=== PATIENT | female | born 1955 | race Caucasian/White ===

== ENCOUNTER → 2017-12-17 10:40 | Outpatient (CLI) | payer BC, SELFPAY ==
[2017-12-17 13:08] LABS: Anion Gap 8 (5-15); BUN 16 mg/dL (7-18); BUN/Creat Ratio 19.4 RATIO (10-20); Chloride 105 mmol/L (98-107); Creatinine, Serum 0.82 mg/dL (0.55-1.02); EST Glomerular Filtration Rate 75 mL/min (>60); Est Glom Filt Rate - Afr Amer 91 mL/min (>60); Glucose 88 mg/dL (74-106); Potassium 3.9 mmol/L (3.5-5.1); Sodium Level 139 mmol/L (136-145); Thyroid Stim Hormone (TSH) 1.88 uIU/mL (0.358-3.74)
[2017-12-17 13:22] LABS: PTHIN 49.4 pg/mL (18.4-80.1)
[2017-12-21 16:18] LABS: Vitamin D 1,25-Dihydroxy 85.8 pg/mL (19.9-79.3)
== END ==
PROVIDERS: Family Provider Family Medicine; PCP Family Medicine; Visit Provider Family Medicine
DX: I10 Essential (primary) hypertension (principal); E21.5 Disorder of parathyroid gland, unspecified; E55.9 Vitamin D deficiency, unspecified
CPT/HCPCS: 36415; 80048; 82652; 83970; 84443

== ENCOUNTER 2018-03-12 15:15 | Emergency (ER) | payer BC, SELFPAY ==
[2018-03-12 15:16] VITALS: BP 223/93; PULSE 73; PULSE 76; RESP 18; RESP 22; TEMP 36.7; O2SAT 99; BMI 35.5
--- NOTE | 2018-03-12 15:27 | CT_ITS ---
STUDY: CT ABDOMEN AND PELVIS WITHOUT CONTRAST REASON FOR EXAM: Female, 62 years old. Severe right flank pain. RADIATION DOSAGE (If Supplied By Facility): CTDIvol = ( 15.56 ) mGy, DLP = ( 754.06 ) mGycm TECHNIQUE: Transaxial images were obtained from the dome of the diaphragm to the symphysis pubis without oral contrast, and without intravenous contrast. Sagittal and coronal images were reconstructed. Individualized dose optimization techniques were used for this CT. COMPARISON: None. FINDINGS: The visualized lung bases are unremarkable. The visualized portions of the heart are within normal limits. There is decreased attenuation of the liver consistent with steatosis. Normal gallbladder and extrahepatic biliary system. Normal spleen. Normal pancreas. Normal bilateral adrenal glands. The right kidney suggests mild edema. There is mild hydronephrosis and moderate hydroureter down to a 4 mm right UVJ stone seen on axial image 150. Additional nonobstructing 8 mm stones seen in the right lower pole. Left kidney has a 3.9 cm probable cyst of the anterior upper pole, confirmation with ultrasound is recommended. No left renal stones. Normal visualized stomach. Normal small intestine. Normal colon. There is non-visualization of the appendix. Normal abdominal aorta. Normal inferior vena cava. Normal retroperitoneum. Normal urinary bladder. There is atrophy of the uterus. Normal abdominal wall. There are diffuse degenerative changes of the visualized lumbar spine. CT/Abdomen/Pelvis without Cont IMPRESSION: 4 mm right UVJ stone causing obstructive changes of the right kidney, collecting system and ureter. Additional 8 mm nonobstructing stone of the right lower pole. Probable 3.9 cm left renal cyst but ultrasound confirmation is recommended. Electronically Signed: Joe Sweet MD at 16:59 EDT , Service support ,
--- NOTE | 2018-03-12 15:29 | ED.VISSUMM ---
- ER Visit Summary Date of Service: 03/12/18 Chief Complaint: Right flank pain History of Present Illness: The patient is a 62 F history of prior kidney stone many years ago. Also hypertension and parathyroid surgery in the past. Patient states today between 1:30 PM and 2 PM she had sudden onset of right flank pain associated nausea vomiting. States the pains moderate to severe. No gross hematuria. No fever. Similar to her prior kidney stone. Prior to this she felt fine. Physical Examination: Middle-aged female playing of pain. Lying in position. Vital signs are stable and her blood pressure 223/93. Afebrile. H EENT exam unremarkable. Moist murmurs. Lungs clear to auscultation bilaterally. Heart regular rate and rhythm no murmur. Abdomen is soft and nontender. Normal bowel sounds no peritoneal signs. Nondistended. No pulsatile mass. Normal bowel sounds. Moving all 4 extremities. Neurovascularly intact. Calves without edema or cords. Back exam is nontender. Neurologically she is awake and alert. With no focal motor deficits. Test Results: BMP shows a BUN 22 creatinine 1.33 slightly elevated from prior creatinines. Urinalysis 1025 red blood cells otherwise no signs of infection. Urinalysis consistent with a kidney stone. CT flank shows a 4 mm right UVJ stone with hydronephrosis and hydroureter. There is also a right 8 mm renal stone. And most likely a left renal cyst. All these tests results were discussed with the patient and family. Emergency Department Course and Treatment: Patient received IV fluids along with IV Zofran and Dilaudid for pain. Treatment Plan: Repeat exam patient is doing much better this 1919. She was given a second dose of Dilaudid. Currently she is comfortable. They are fine with her being discharged home. She will be giving a home pack of Zofran and [place]. The pharmacy will be closed before they get there. She also be written a prescription for [place] and Zofran. And Flomax. Strain your urine for the stone. Follow-up for Mg as needed. Disposition: Discharge Impression: Acute right flank pain secondary to 4 mm right UVJ ureteral calculi. This note was generated with [employer] dictation software. It may contain incorrect words, spelling, and punctuation that were not noted in review of the chart prior to signing ED Disposition - Plan for ED Patient: Chief Complaint: Flank Pain Referrals: Nasim Wolff MD [Primary Care Provider] -
--- NOTE | 2018-03-12 15:32 | ED.DCSUM_ITS ---
- ER Visit Summary Date of Service: 03/12/18 Chief Complaint: Right flank pain History of Present Illness: The patient is a 62 F history of prior kidney stone many years ago. Also hypertension and parathyroid surgery in the past. Patient states today between 1:30 PM and 2 PM she had sudden onset of right flank pain associated nausea vomiting. States the pains moderate to severe. No gross hematuria. No fever. Similar to her prior kidney stone. Prior to this she felt fine. Physical Examination: Middle-aged female playing of pain. Lying in position. Vital signs are stable and her blood pressure 223/93. Afebrile. H EENT exam unremarkable. Moist murmurs. Lungs clear to auscultation bilaterally. Heart regular rate and rhythm no murmur. Abdomen is soft and nontender. Normal bowel sounds no peritoneal signs. Nondistended. No pulsatile mass. Normal bowel sounds. Moving all 4 extremities. Neurovascularly intact. Calves without edema or cords. Back exam is nontender. Neurologically she is awake and alert. With no focal motor deficits. Test Results: BMP shows a BUN 22 creatinine 1.33 slightly elevated from prior creatinines. Urinalysis 1025 red blood cells otherwise no signs of infection. Urinalysis consistent with a kidney stone. CT flank shows a 4 mm right UVJ stone with hydronephrosis and hydroureter. There is also a right 8 mm renal stone. And most likely a left renal cyst. All these tests results were discussed with the patient and family. Emergency Department Course and Treatment: Patient received IV fluids along with IV Zofran and Dilaudid for pain. Treatment Plan: Repeat exam patient is doing much better this 1919. She was given a second dose of Dilaudid. Currently she is comfortable. They are fine with her being discharged home. She will be giving a home pack of Zofran and [place]. The pharmacy will be closed before they get there. She also be written a prescription for [place] and Zofran. And Flomax. Strain your urine for the stone. Follow-up for Mg as needed. Disposition: Discharge Impression: Acute right flank pain secondary to 4 mm right UVJ ureteral calculi. This note was generated with [employer] dictation software. It may contain incorrect words, spelling, and punctuation that were not noted in review of the chart prior to signing ED Disposition - Plan for ED Patient: Chief Complaint: Flank Pain Referrals: Nasim Wolff MD [Primary Care Provider] -
[2018-03-12] MEDS: Ondansetron 4 MG/2 ML Vial IV (16:08)
[2018-03-12] MEDS: Ketorolac 30 MG/ML Syringe IV (16:08)
[2018-03-12] MEDS: HYDROmorphone 1 MG/ML Syringe IV ×2 (16:08→17:33)
[2018-03-12] MEDS: 0.9% Normal Saline 1,000 ML 1000 ML IV (16:11)
[2018-03-12 16:41] LABS: Anion Gap 10 (5-15); BUN 22 mg/dL (7-18); BUN/Creat Ratio 16.5 RATIO (10-20); Calcium,Total 9.2 mg/dL (8.5-10.1); Chloride 109 mmol/L (98-107); Creatinine, Serum 1.33 mg/dL (0.55-1.02); EST Glomerular Filtration Rate 43 mL/min (>60); Est Glom Filt Rate - Afr Amer 52 mL/min (>60); Estimated Creatinine Clearance 33.94 ml/min; Glucose 111 mg/dL (74-106); Potassium 3.8 mmol/L (3.5-5.1); Sodium Level 142 mmol/L (136-145)
[2018-03-12 17:28] LABS: Mucous, Urine 0 SEEN /hpf (<or=2+)
[2018-03-12 17:36] VITALS: BP 136/65; PULSE 70; RESP 14; O2SAT 100
[2018-03-12 17:37] LABS: Color, Urine Yellow (Yellow); Glucose, Dipstick Normal (Normal); Ketone-Dipstick 15 mg/dl (Negative); Leukocyte Esterase-Dipstick 25 /ul (Negative); Nitrite-Dipstick Negative (Negative); Occult Blood-Urine 150 /ul (Negative); Protein-Dipstick 15 mg/dl (Negative); Urine Bilirubin Dipstick Negative (Negative); Urine Clarity Cloudy (Clear); Urine Urobilinogen Normal (Normal)
[2018-03-12 18:00] LABS: Squamous Epithelial Cells - UA 0-5 SEEN /hpf (5-10)
[2018-03-12 18:02] LABS: Bacteria RARE /hpf (None Seen); Red Blood Cells-Urine 10-25 SEEN /hpf (0-5); White Blood Cells 0-5 SEEN /hpf (0-5)
--- NOTE | 2018-03-12 19:25 | ED.DEP ---
ED Disposition - Plan for ED Patient: Disposition: Home or Assisted Living Chief Complaint: Flank Pain Instructions: ED Stone Renal W Colic Prescriptions: Hydrocodone/Acetaminophen [[place] 7.5-325 Tablet] 1 ea PO Q4H PRN PRN #14 tab PRN Reason: Pain Ondansetron [Zofran Odt] 4 mg PO Q8H PRN PRN #10 tab PRN Reason: Nausea Tamsulosin HCl [Flomax] 0.4 mg PO DAILY #3 cap Referrals: Nasim Wolff MD [Primary Care Provider] - As Needed Omar cMdermott MD [STAFF PHYSICIAN] - As Needed Additional Instructions: Plenty of fluids and rest. [place] for pain up to 2 every 4 hours as needed pain Flomax to help pass the stone. Zofran as needed for nausea. Return if intractable pain, intractable vomiting or fever.
--- NOTE | 2018-03-12 19:29 | DCINST.ED_ITS ---
ED Disposition - Plan for ED Patient: Disposition: Home or Assisted Living Chief Complaint: Flank Pain Instructions: ED Stone Renal W Colic Prescriptions: Hydrocodone/Acetaminophen [[place] 7.5-325 Tablet] 1 ea PO Q4H PRN PRN #14 tab PRN Reason: Pain Ondansetron [Zofran Odt] 4 mg PO Q8H PRN PRN #10 tab PRN Reason: Nausea Tamsulosin HCl [Flomax] 0.4 mg PO DAILY #3 cap Referrals: Nasim Wolff MD [Primary Care Provider] - As Needed Omar Mcdermott MD [STAFF PHYSICIAN] - As Needed Additional Instructions: Plenty of fluids and rest. [place] for pain up to 2 every 4 hours as needed pain Flomax to help pass the stone. Zofran as needed for nausea. Return if intractable pain, intractable vomiting or fever.
[2018-03-12] MEDS: HYDROcodone Bitartrate/Apap 5/325 Tablet PO (19:49)
[2018-03-12] MEDS: Ondansetron ODT 4 MG Tablet PO (19:50)
[2018-03-12 19:51] VITALS: BP 146/63; PULSE 99; RESP 16; O2SAT 97; O2SAT 98
== END 2018-03-12 19:55 | disposition home or self-care (01) ==
PROVIDERS: Emergency Provider Emergency Medicine; Family Provider Family Medicine; PCP Family Medicine
DX: N13.2 Hydronephrosis with renal and ureteral calculous obstruction (principal); I10 Essential (primary) hypertension; Z79.899 Other long term (current) drug therapy; Z87.442 Personal history of urinary calculi
CPT/HCPCS: 74176; 80048; 81001; 96361; 96374; 96375; 96376; 99285; J7030; A4216; J2405

== ENCOUNTER → 2018-05-10 18:48 | Outpatient (CLI) | payer BC, SELFPAY ==
[2018-05-16 12:56] LABS: HPV Reflexed? NOT INDICATED
== END ==
PROVIDERS: Family Provider Family Medicine; PCP Family Medicine; Visit Provider Nurse Practitioner Adult Health
DX: Z01.419 Encounter for gynecological examination (general) (routine) without abnormal findings (principal)
CPT/HCPCS: 88175; G0145

== ENCOUNTER → 2018-06-17 10:19 | Outpatient (CLI) | payer BC, SELFPAY ==
[2018-06-17 12:42] LABS: Vitamin D,25 Hydroxy 49.6 ng/mL (29.95-100.01)
[2018-06-17 12:50] LABS: PTHIN 84.7 pg/mL (18.4-80.1)
[2018-06-17 13:00] LABS: Anion Gap 10 (5-15); BUN 18 mg/dL (7-18); BUN/Creat Ratio 21.9 RATIO (10-20); Calcium,Total 8.8 mg/dL (8.5-10.1); Chloride 106 mmol/L (98-107); Creatinine, Serum 0.82 mg/dL (0.55-1.02); EST Glomerular Filtration Rate 75 mL/min (>60); Est Glom Filt Rate - Afr Amer 91 mL/min (>60); Glucose 95 mg/dL (74-106); Magnesium 2.2 mg/dL (1.6-2.6); Potassium 3.8 mmol/L (3.5-5.1); Sodium Level 140 mmol/L (136-145); T4 Free Direct 0.98 ng/dL (0.76-1.46); Thyroid Stim Hormone (TSH) 1.82 uIU/mL (0.358-3.74)
[2018-06-17 13:14] LABS: Microalbumin,Random Urine 7.8 mg/L (NO RANGE EST.); Microalbumin:Creatinine Ratio 29.1 mg/g CRE (<30 mg/g CRE)
== END ==
PROVIDERS: Family Provider Family Medicine; PCP Family Medicine; Visit Provider Family Medicine
DX: I10 Essential (primary) hypertension (principal); E21.5 Disorder of parathyroid gland, unspecified
CPT/HCPCS: 36415; 80048; 82043; 82306; 82570; 83735; 83970; 84439; 84443

== ENCOUNTER → 2018-07-25 16:15 | Outpatient (CLI) | payer BC, SELFPAY ==
--- NOTE | 2018-07-25 16:24 | US_ITS ---
STUDY: RENAL ULTRASOUND - COMPLETE REASON FOR EXAM: Female, 62 years old. Right flank pain TECHNIQUE: Ultrasound evaluation of the kidneys was performed with real-time and static alvarez-scale imaging. COMPARISON: None. FINDINGS: RIGHT KIDNEY: Normal location of the right kidney, which is normal in size. The right kidney measures 11.9 x 6.0 x 5 point cm. There is a normal cortex of the right kidney. The renal cortex measures 1.4 cm. There is no right renal mass or cyst. There is a nonobstructing 6 mm stone There is mild hydronephrosis of the right kidney, of uncertain etiology. DISTAL RIGHT URETER: There is non-visualization of the distal right ureter. There is no demonstrated right ureterovesical junction calculus. There is a visualized right ureteral jet. LEFT KIDNEY: Normal location of the left kidney, which is normal in size. The left kidney measures 10.5 x 6.0 x 5.6 cm. There is a normal cortex of the left kidney. The renal cortex measures 1.3 cm. There is a simple 4 cm cyst. There are no left renal calculi. There is no left hydronephrosis. DISTAL LEFT URETER: There is non-visualization of the distal left ureter. There is no demonstrated left ureterovesical junction calculus. There is a visualized left ureteral jet. AORTA: There is no elongation or tortuosity of the abdominal aorta. I.V.C.: The IVC is patent. BLADDER: The bladder is sonographically normal US/Kidney and Bladder IMPRESSION: Nonobstructing right nephrolithiasis Mild right hydronephrosis of uncertain etiology Simple left renal cyst Electronically Signed: Seamus Russell MD at 17:33 EST , Service support ,
== END ==
PROVIDERS: Family Provider Family Medicine; PCP Family Medicine; Referring Provider Family Medicine; Visit Provider Family Medicine
DX: R11.2 Nausea with vomiting, unspecified (principal)
CPT/HCPCS: 76770

== ENCOUNTER 2018-07-29 07:08 | Day surgery (SDC) | payer BC, SELFPAY ==
[2018-07-29] VITALS (8 sets, daily range): BP systolic 125–182; BP diastolic 68–96; PULSE 61–82; RESP 16–18; TEMP 36.3–37.2; O2SAT 92–100; BMI 33.9
--- NOTE | 2018-07-29 | CALC_PTH ---
PATIENT: ROSITA GRANT LOC: [facility] [place] U#:[id number] AGE/SX: 62/F ROOM: RE07/29/[address]: Dr. Julia Keane MD : 1955 BED: DIS: 07/29/2018 SPEC #: [id number] RECD: 07/29/18 14:40 STATUS: PAUL VEE #: [id number] IGOR: 07/29/18 00:[address]: Julia Keane DEPT: SURGICAL PATHOLOGY RECD BY: Aly Spivey ENTERED: 07/29/18 14:40 SP TYPE: Calculi OTHR DR: Dr. Nasim Wolff MD Tissues: CALCULI Procedures: Surgery Specimen Level I HEADER OPERATION: Cysto, ureteroscopy, retro, laser, stent PRE-OP DIAGNOSIS: Calculus of right ureter TISSUE SUBMITTED: Calculi GROSS DIAGNOSIS Fragments of stone, clinically right ureteral calculus, submitted entirely for stone analysis. SJ:ivanna 08/01/18 COMMENT The calculus is submitted in its entirety for chemical stone analysis. The results from this study will be reported separately. GROSS DESCRIPTION Received is one container labeled with the patient's name and designated right ureteral stone. The specimen consists of multiple fragments of stone (five) measuring 0.1 to 0.2 cm in greatest dimension. The entire specimen is submitted for stone analysis. / BRIAN:ivanna 07/29/18 CPT: 08334
--- NOTE | 2018-07-29 07:17 | CT_ITS ---
Right flank pain, hydronephrosis, low back pain. TECHNIQUE: Helically acquired images were obtained of the abdomen and pelvis without oral or IV contrast as per renal stone protocol. A radiation dose optimization technique was used for this scan. IV Contrast dosage and agent: None. Oral contrast: None. COMPARISON: Renal ultrasound 07/25/[address] abdomen and pelvis 03/12/2018 FINDINGS: Both kidneys are normal in position. By previous CT scan, an 8 mm calyceal stone was present at the lower pole of the right kidney. By current exam, this stone now lies at the right UVJ and there is moderate hydronephrosis and hydroureter proximal to the stone. The right kidney shows no postobstructive atrophy. No stones or hydronephrosis on the left. Left renal 4 cm water density cortical cyst, unchanged. Adrenal glands are not enlarged. Lower chest: Clear. No pleural effusion Fatty infiltration of the liver. The spleen, pancreas, gallbladder, and biliary system showed no CT abnormality. Atherosclerotic abdominal aorta which is normal in caliber. No ascites or retroperitoneal lymphadenopathy. GI tract: No obstruction. Pelvis: Anteverted uterus which is normal in size. The pelvis shows no free fluid or lymphadenopathy. Urinary bladder is not well distended and is otherwise negative. No intraluminal stones. CT/Abdomen/Pelvis without Cont IMPRESSION: 1. The previously seen 8 mm right renal stone shows distal migration to the right UVJ with secondary obstruction. Moderate hydronephrosis and hydroureter on the right proximal to the stone 2. No hydronephrosis on the left. 3. Additional chronic changes, as above. Individualized dose optimization techniques were used for this CT. at 0812 Reported and signed by: Twan Mejia MD Electronically Signed: Twan Mejia, at 8:10 EST Tel , Service support ,
--- NOTE | 2018-07-29 12:14 | PCM.DC.URO ---
Discharge Diet: No Restrictions Discharge Activity: May not drive while taking narcotic pain medications., May Shower May resume sexual activity in: 1 week Call your doctor if you observe: Fever of 101 or Higher, Inability to urinate, Inability to have a bowel movement, Shortness of breath, Chest pain, Calf discomfort, Uncontrolled pain Allergies/Adverse Reactions: Allergies Sulfa (Sulfonamide Antibiotics) Allergy (Verified 03/12/18 15:19) Rash Medications to take at Discharge Hydrocodone/Acetaminophen [[place] 7.5-325 Tablet] 1 ea PO Q4H PRN PRN #14 tab 03/12/18 Lisinopril [Zestril] 40 mg PO DAILY 03/12/18 Ondansetron [Zofran Odt] 4 mg PO Q8H PRN PRN #10 tab 03/12/18 Tamsulosin HCl [Flomax] 0.4 mg PO DAILY #3 cap 03/12/18 Primary Care Physician: Nasim Wolff MD [Primary Care Provider] - Test Results: Test results from this visit will be discussed in further detail at your follow-up appointment, if applicable. Please Follow Up With: Julia Keane MD When: call for appt Proposed Discharge Date: 07/29/18
[2018-07-29] MEDS: Cefazolin 2 GM in 0.9% Normal Saline 100 ML IV (12:22)
--- NOTE | 2018-07-29 13:08 | PCM.IMDPSTOP ---
Immediate Post-Op Note Date of Procedure: 07/29/18 Primary Surgeon/Physician: Julia Keane MD head scorer: Julia Keane Pre-Operative Diagnosis: right ureteral calculus with hydronephrosis. Post-Operative Diagnosis: same Surgery/Procedure Performed:: cystoscopy right ureteroscopy laser lithotripsy, stone basket, right stent insertion. Description of Surgical Findings:: right distal ureteral stone, broken into small fragments, stent inserted without difficulty Estimated Blood Loss: 3cc Specimen's removed: stones Type of Anesthesia:: General - Admit VTE Documentation VTE Present on Admission: Yes VTE Mechan Device Prophylaxis: SCD's VTE Pharm Prophylaxis ordered?: No Reason prophylaxis not ordered:: Treatment Not Indicated
--- NOTE | 2018-07-29 13:11 | OP.PN_ITS ---
Immediate Post-Op Note Date of Procedure: 07/29/18 Primary Surgeon/Physician: Julia Keane MD hr internship: Julia Keane Pre-Operative Diagnosis: right ureteral calculus with hydronephrosis. Post-Operative Diagnosis: same Surgery/Procedure Performed:: cystoscopy right ureteroscopy laser lithotripsy, stone basket, right stent insertion. Description of Surgical Findings:: right distal ureteral stone, broken into small fragments, stent inserted without difficulty Estimated Blood Loss: 3cc Specimen's removed: stones Type of Anesthesia:: General - Admit VTE Documentation VTE Present on Admission: Yes VTE Mechan Device Prophylaxis: SCD's VTE Pharm Prophylaxis ordered?: No Reason prophylaxis not ordered:: Treatment Not Indicated
--- NOTE | 2018-07-29 13:21 | OP.PCM_ITS ---
Problem List (1) Right ureteral calculus Status: Acute (2) Hydronephrosis Status: Acute Report of Operation Date of Procedure: 07/29/18 Pre-Operative Diagnosis: right ureteral calculus with hydronephrosis. Post-Operative Diagnosis: same Surgery/Procedure Performed:: cystoscopy right ureteroscopy laser lithotripsy, stone basket, right stent insertion. Description of Surgical Findings:: right distal ureteral stone, broken into small fragments, stent inserted without difficulty photography coordinator: Julia Keane Type of Anesthesia:: General Specimen's removed: stones Estimated Blood Loss (mL): 3cc Description of Procedure: The patient is a 62yo female found to have 8mm distal right ureteral calculus with obstruction on CT today, and was awakened at 2am with excruciating pain. After discussing the risks, benefits and alternatives, she agreed to surgical intervention. She was taken to the operating room and placed in supine position on operating room table. Anesthesia monitored her head, neck, airway, IV access and vital signs throughout the case. After anesthesia was appropriately administered, she was placed into dorsal lithotomy position and was prepped and draped in usual sterile fashion. A cystoscopy was performed revealing no mass, erythema, but there was blood at the right ureteral orifice. A 0.035 glide wire was passed into the renal pelvis without difficulty. The rigid ureteroscope was then used to intubate the right ureter and the stone was visualized using the assistance of a 0.025 glide wire. Fluoursocopy was used for visualization. The stone was fragmented into small pieces with 275 micron laser at 6 and 0.6 power settings. The fragments were basket extracted and sent for analysis. Using the 0.035 glidewire, a 6fr 24cm stent was inserted with good curling in the renal pelvis and the bladder. The bladder was emptied and the case was terminated. The patient tolerated the procedure well and was taken to recovery room in good condition. There were no complications. Grafts/Implants Used: 6Fr 24cm stent - Complications none - Admit VTE Documentation VTE Present on Admission: Yes VTE Mechan Device Prophylaxis: SCD's VTE Pharm Prophylaxis ordered?: No Reason prophylaxis not ordered:: Treatment Not Indicated
[2018-08-11 14:06] LABS: Ca Oxalate, Dihydrate 25 % (.); Ca Oxalate, Monohydrate 65 % (.); Calcium Phosphate 10 % (.)
== END 2018-07-29 17:54 | disposition home or self-care (01) ==
LOC: CT 10:42 → SDC 10:49 → AC 10:51
PROVIDERS: Family Provider Family Medicine; PCP Family Medicine; Referring Provider Urology; Visit Provider Urology
PROC: 0TJ98ZZ Inspection of Ureter, Via Natural or Artificial Opening Endoscopic (ICD-10-PCS; CPT 52352; principal; 2018-07-29 11:55)
DX: N13.2 Hydronephrosis with renal and ureteral calculous obstruction (principal); M54.5 Low back pain; I10 Essential (primary) hypertension; Z79.899 Other long term (current) drug therapy; Z88.2 Allergy status to sulfonamides; Z91.040 Latex allergy status; Z78.0 Asymptomatic menopausal state; Z87.442 Personal history of urinary calculi
CPT/HCPCS: 00918; 52356; 74176; 76000; 82360; 88300; J7120; C2617; J2405

== ENCOUNTER → 2018-08-15 10:39 | Outpatient (CLI) | payer BC, SELFPAY ==
[2018-07-29 11:11] VITALS: BMI 33.9
[2018-08-15 12:43] LABS: (24 HR) Urine Calcium 274.8 mg/24 HR (42.0-353.0); 24HR UR TOTAL VOLUME 1150 ml; Calcium Urine pH Range 2; Urine Calcium (Random) 23.9 (Not Estab.)
[2018-08-15 12:53] LABS: 24HR. Urine Creatinine 1.67 g/24 HR (0.70-1.90)
[2018-08-16 12:06] LABS: Uric Acid, Ur 61.7 mg/dL (Not Estab.)
[2018-08-17 12:06] LABS: Uric Acid, 24Ur 709.6 mg/24 hr (250.0-750.0)
--- OUTSIDE RECORDS SUMMARY | 2018-10-08 15:59 | XMS RPT_ITS ---
:1955 Author Organization OHIP Support Name Relationship Address Phone NIEVES PHILLIPS BUDDHIST CHRUCH Unavailable [address] + [place] [phone] GUSTAVO GRANT Unavailable [address] + [place] [phone] [facility] BUDDHIST CHRUCH Unavailable [address] + [place] [phone] GUSTAVO GRANT Unavailable [address] + [place] [phone] [facility] BUDDHIST CHRUCH Unavailable [address] + [place] [phone] GUSTAVO GRANT Unavailable [address] + [place] [address] NIEVES BUDDHIST CHRUCH Unavailable [address] + [place] [address] GUSTAVO GRANT Unavailable [address] + [place] [address] [facility] BUDDHIST CHRUCH Unavailable [address] + [place] [phone] GUSTAVO GRANT Unavailable [address] + [place] [address] NIEVES BUDDHIST CHRUCH Unavailable [address] + [place] [phone] GUSTAVO GRANT Unavailable [address] + [place] [address] [facility] BUDDHIST CHRUCH Unavailable [address] + [place] [phone] GUSTAVO GRANT Unavailable [address] + [place] [address] Care Team Providers Name Role Phone Wolff, Nasim Attending Unavailable Wolff, Nasim Primary Care Unavailable Wolff, Nasim Primary Care Unavailable Fer Barkley Attending Unavailable Rosita Davalos Attending Unavailable Wolff, Nasim Primary Care Unavailable TicktonRosita Referring Unavailable Wolff, Nasim Attending Unavailable Wolff, Nasim Primary Care Unavailable Wolff, Nasim Attending Unavailable Wolff, Nasim Referring Unavailable Wolff, Nasim Primary Care Unavailable Julia Keane Attending Unavailable Luis MiguelnesJulia stallworth Referring Unavailable Wolff, Nasim Primary Care Unavailable Julia Keane Attending Unavailable Wolff, Nasim Primary Care Unavailable PROBLEMS PROBLEMS DATE TYPE CONDITION / CODE ATTENDING STATUS SOURCE 08/23/2018 Unknown N20.0 - Calculus of Julia Keane Active [place] [facility] / Community N20.0(ICD-10) Hospital Repository 08/22/2018 Unknown N13.39 - Other Julia Keane Active [place] hydronephrosis / Community N13.39(ICD-10) Hospital Repository 08/22/2018 Unknown M54.5 - Low back Julia Keane Active [facility] pain / M54.5(ICD-10) Community Hospital Repository 07/25/2018 Unknown R11.2 - Nausea with Wolff, Nasim Active [place] vomiting, Community unspecified / Hospital R11.2(ICD-10) Repository 12/20/2017 Unknown 401.9 - Unspecified Wolff, Nasim Active [facility] essential Community hypertension / Hospital 401.9(ICD-9) Repository 12/20/2017 Unknown I10 - Essential Wolff, Nasim Active [place] (primary) Community hypertension / Hospital I10(ICD-10) Repository 12/20/2017 Unknown 252.9 - Unspecified Wolff, Nasim Active [facility] disorder of Community parathyroid gland / Hospital 252.9(ICD-9) Repository 12/20/2017 Unknown E21.5 - Disorder of Wolff, Nasim Active [facility] parathyroid gland, Community unspecified / Hospital E21.5(ICD-10) Repository 12/20/2017 Unknown 268.9 - Unspecified Wolff, Nasim Active [facility] vitamin D deficiency Community / 268.9(ICD-9) Hospital Repository 12/20/2017 Unknown E55.9 - Vitamin D Wolff, Nasim Active [place] deficiency, Community unspecified / Hospital E55.9(ICD-10) Repository PROCEDURES PROCEDURES No Procedure Records FoundRESULTS RESULTS MISCELLANEOUS LAB Collected: 08/15/2018 Status: F Source: [facility] PROCEDURE 2 10:54 AM [facility] REPOSITORY Order Comment: Comments: 24 HOUR TOTAL VOLUME AND PH List Test(s) Ordered by Physician: 24 HOUR TOTAL VOLUME AND PH TYPE CODE TESTS RESULT OUT OF RANGE REFERENCE UNITS LAB L801.1543 Normal [facility] TEST 2 Result Comment: The Total Volume: 1150 mL pH: 5 Performed By: #### L801.1543 #### [facility] [address] [place], [address] MISCELLANEOUS LAB Collected: 08/15/2018 Status: F Source: [facility]AY PROCEDURE 10:54 AM [facility] REPOSITORY Order Comment: Comments: 24 HOUR TOTAL VOLUME AND PH Test(s) Ordered: [id number];24 HOUR OXALATE URINE TYPE CODE TESTS RESULT OUT OF RANGE REFERENCE UNITS LAB L801.1541 Normal [facility] TEST Result Comment: TEST RESULT LIMITS Oxalate, Quant, 24-Hour Urine Oxalates, Urine 12 mg/L Undefined Oxalates, Urine 24hr 14 mg/24 hr TESTING PERFORMED AT [facility]. ORIGINAL REPORT ON FILE IN LAB CONTAINS ADDITIONAL TEST SITE INFORMATION. Performed By: #### L801.1541 #### [facility] [address] [place], [address] CALCIUM, URINE 24HR Collected: 08/15/2018 Status: F Source: AJAY 10:41 AM [facility] REPOSITORY TYPE CODE TESTS RESULT OUT OF RANGE REFERENCE UNITS LAB L501.2280 Normal Calcium UR pH 2 LAB L501.2281 24.0-24.0 HR Normal UR Collect 24.0 Time LAB L501.2288 ml Normal UR Total 1150 Volume LAB L501.2290 Not Estab. Normal Urine Calcium 23.9 LAB L501.2293 42.0-353.0 mg/24 HR Normal 24HR UR 274.8 Calcium Performed By: #### L500.7000 #### [facility] [address] [place], [address] 24 HR URINE CREATININE Collected: 08/15/2018 Status: F Source: [place] 10:41 AM [facility] REPOSITORY TYPE CODE TESTS RESULT OUT OF RANGE REFERENCE UNITS LAB L502.0100 24.0 HOURS Normal UR COLLECT 24.0 TIME LAB L502.0200 L Normal UR TOTAL 1.20 VOLUME LAB L502.0300 NO RANGE EST. mg/dL Normal URINE CREAT 139.00 LAB L502.0400 0.70-1.90 g/24 HR Normal UR.CREAT/24hr 1.67 Performed By: #### L502.000 #### [facility] [address] [facility] [place], [place], [address] URIC ACID, 24 HR UR Collected: 08/15/2018 Status: F Source: [place] 10:41 AM [facility] REPOSITORY TYPE CODE TESTS RESULT OUT OF RANGE REFERENCE UNITS LAB L3600.6020 Not Estab. mg/dL Normal URIC 61.7 ACID,UR LAB L3600.6040 250.0-750.0 mg/24 hr Normal URIC 709.6 ACID,24UR Result Comment: Performed at: - [facility] [address] [id number] Cornetist: Chato Rodriguez PhD, Phone: [phone] Performed By: #### L3600.6000 #### [facility] (refer to report for specific site) refer to report for address and phone number MISCELLANEOUS LAB Collected: 08/15/2018 Status: F Source: [place] PROCEDURE 10:41 AM [facility] REPOSITORY Order Comment: Comments: [id number];24 HOUR CITRATE URINE Test(s) Ordered: [id number]; SODIUM 24 HOUR URINE TYPE CODE TESTS RESULT OUT OF RANGE REFERENCE UNITS LAB L801.1541 Normal [facility] TEST Result Comment: TEST RESULT LIMITS Sodium, 24 hr Urine Sodium, Urine 137 mmol/L Not Estab. Sodium, Urine 158 mmol/24 hr 39 - 258 [facility]. ORIGINAL REPORT ON FILE IN LAB CONTAINS ADDITIONAL TEST SITE INFORMATION. Performed By: #### L801.1541 #### [facility] [address] [place], [place], [address] MISCELLANEOUS LAB Collected: 08/15/2018 Status: F Source: [facility] PROCEDURE 2 10:41 AM [facility] REPOSITORY Order Comment: Comments: [id number];24 HOUR CITRATE URINE List Test(s) Ordered by Physician: [id number]; 24 HOUR PHOS URINE TYPE CODE TESTS RESULT OUT OF RANGE REFERENCE UNITS LAB L801.1543 Normal [facility] TEST 2 Result Comment: TEST RESULT LIMITS Phosphorus, 24 hr Urine Phosphorus, Urine 120.1 mg/dL Not Estab. Phosphorus, Urine 24hr 1381.2 High mg/24 hr 400.0 - 1300.0 TESTING PERFORMED AT [facility]. ORIGINAL REPORT ON FILE IN LAB CONTAINS ADDITIONAL TEST SITE INFORMATION. Performed By: #### L801.1543 #### [facility] [address] [place], [address] MISCELLANEOUS LAB Collected: 08/15/2018 Status: F Source: AJ[facility] PROCEDURE 3 10:41 AM [facility] REPOSITORY Order Comment: Comments: [id number];24 HOUR CITRATE URINE List Test(s) Ordered by Physician: [id number]; 24 HOUR MAGNESIUM URINE TYPE CODE TESTS RESULT OUT OF RANGE REFERENCE UNITS LAB L801.1545 Normal [facility] TEST 3 Result Comment: TEST RESULT LIMITS Magnesium, Urine Magnesium, U 6.0 mg/dL Not Estab. Magnesium,Urine 24hr 69.0 mg/24 hr 12.0 - 293.0 TESTING PERFORMED AT [facility]. ORIGINAL REPORT ON FILE IN LAB CONTAINS ADDITIONAL TEST SITE INFORMATION. Performed By: #### L801.1545 #### [facility] [place], [address] MISCELLANEOUS LAB Collected: 08/15/2018 Status: F Source: AJAY PROCEDURE 4 10:41 AM [facility] REPOSITORY Order Comment: Comments: [id number];24 HOUR CITRATE URINE List Test(s) Ordered by Physician: [id number];24 HOUR CITRATE URINE TYPE CODE TESTS RESULT OUT OF RANGE REFERENCE UNITS LAB L801.1547 Normal [facility] TEST 4 Result Comment: TEST RESULT LIMITS Citric Acid (Citrate), Urine Citric Acid, Urine 373 mg/L Undefined Citric Acid, U, 24hr 429 mg/24 hr 320 - 1240 Disclaimer: This test was developed and its performance characteristics determined by [facility]. It has not been cleared or approved by the Food and Drug Administration. TESTING PERFORMED AT [facility]. ORIGINAL REPORT ON FILE IN LAB CONTAINS ADDITIONAL TEST SITE INFORMATION. Performed By: #### L801.1547 #### [facility] [address] [place], [address] OPERATIVE REPORT Observed: 07/29/2018 Status: F Source: [place] 1:21 PM [facility] REPOSITORY [facility] Medical Records Department [address] [facility] [place] [address] Operative Report 07/29/18 1312 MR#: [id number] Acct: [id number] Name: ROSITA GRANT Rep #: [id number] : 1955 62 From: Julia Keane MD PCP: Nasim Wolff MD Status: [facility] Location: [place] [address] Problem List (1) Right ureteral calculus Status: Acute (2) Hydronephrosis Status: Acute Report of Operation Date of Procedure: 07/29/18 Pre-Operative Diagnosis: right ureteral calculus with hydronephrosis. Post-Operative Diagnosis: same Surgery/Procedure Performed:: cystoscopy right ureteroscopy laser lithotripsy, stone basket, right stent insertion. Description of Surgical Findings:: right distal ureteral stone, broken into small fragments, stent inserted without difficulty paper production engineer: Julia Keane Type of Anesthesia:: General Specimen's removed: stones Estimated Blood Loss (mL): 3cc Description of Procedure: The patient is a 62yo female found to have 8mm distal right ureteral calculus with obstruction on CT today, and was awakened at 2am with excruciating pain. After discussing the risks, benefits and alternatives, she agreed to surgical intervention. She was taken to the operating room and placed in supine position on operating room table. Anesthesia monitored her head, neck, airway, IV access and vital signs throughout the case. After anesthesia was appropriately administered, she was placed into dorsal lithotomy position and was prepped and draped in usual sterile fashion. A cystoscopy was performed revealing no mass, erythema, but there was blood at the right ureteral orifice. A 0.035 glide wire was passed into the renal pelvis without difficulty. The rigid ureteroscope was then used to intubate the right ureter and the stone was visualized using the assistance of a 0.025 glide wire. Fluoursocopy was used for visualization. The stone was fragmented into small pieces with 275 micron laser at 6 and 0.6 power settings. The fragments were basket extracted and sent for analysis. Using the 0.035 glidewire, a 6fr 24cm stent was inserted with good curling in the renal pelvis and the bladder. The bladder was emptied and the case was terminated. The patient tolerated the procedure well and was taken to recovery room in good condition. There were no complications. Grafts/Implants Used: 6Fr 24cm stent - Complications none - Admit VTE Documentation VTE Present on Admission: Yes VTE Mechan Device Prophylaxis: SCD's VTE Pharm Prophylaxis ordered?: No Reason prophylaxis not ordered:: Treatment Not Indicated 07/29/18 1321 <Electronically signed by Julia Keane MD> Date Julia Keane MD CC: Nasim Wolff MD; Julia Keane MD Signed CALCULI, URINARY W / Collected: 07/29/2018 Status: F Source: [facility] PHOTO 12:57 PM [facility] REPOSITORY Order Comment: Comments: RIGHT URETERAL STONE TYPE CODE TESTS RESULT OUT OF RANGE REFERENCE UNITS LAB L3650.0200 . Normal COLOR Melgar LAB L3650.0300 . mm Normal SIZE Comment Result Comment: Specimens received as a mixture of whole stones and fragments. LAB L3650.0400 . mg Normal WEIGHT 22.2 LAB L3650.0500 . Normal . Comment Result Comment: Percentage (Represents the % composition) LAB L3650.0600 . % CA OXAL DIHYDR 25 Normal LAB L3650.0700 . % CA OXAL 65 Normal [place] LAB L3650.0800 . % CA PHOSPHATE 10 Normal LAB L3650.0900 . MAG SHAGGY PHOS Test not Normal performed LAB L3650.1000 . URIC ACID Test not Normal performed LAB L3650.1100 . URIC ACID Test not Normal DIHYD performed LAB L3650.1200 . AMM ACID URATE Test not Normal performed LAB L3650.1300 . NA ACID URATE Test not Normal performed LAB L3650.1400 . CA HYDROG PHOS Test not Normal performed LAB L3650.1500 . CYSTINE Test not Normal performed LAB L3650.1600 . CHOLESTEROL Test not Normal performed LAB L3650.1700 . CA Test not Normal BILIRUBINATE performed LAB L3650.1800 . CA CARBONATE Test not Normal performed LAB L3650.1900 . TRIAMTERENE Test not Normal performed LAB L3650.2000 . NEWBERYITE Test not Normal performed LAB L3650.2100 . DRIED BLOOD Test not Normal performed LAB L3650.2200 . CELL MATERIAL Test not Normal performed LAB L3650.2250 . NIDUS No Nidus Normal visualized LAB L3650.2325 . SHELL Test not Normal performed LAB L3650.2350 . SURFACE Test not Normal CRYSTAL performed LAB L3650.2400 . COMMENT Test not Normal performed LAB L3650.2500 . COMMENT Test not Normal performed LAB L3650.2600 . PHOTO Comment Normal Result Comment: Photograph will follow under separate cover. LAB L3650.2700 . Normal COMMENT Comment Result Comment: Physician questions regarding Calculi Analysis contact [facility] at: [phone]. LAB L3650.2800 . Normal COMMENT Comment Result Comment: Calculi report with photograph will follow via computer, mail or cage cashier delivery. LAB L3650.2900 . Normal Disclaimer Comment Result Comment: This test was developed and its performance characteristics determined by [facility]. It has not been cleared or approved by the Food and Drug Administration. Performed at: [address] [id number] Cornetist: Keysha Lewis MD, Phone: [phone] Performed By: #### L3650.0100 #### [facility] (refer to report for specific site) refer to report for address and phone number DISCHARGE INSTRUCTION Observed: 07/29/2018 Status: F Source: AJAY 12:16 PM [facility] REPOSITORY [facility] Medical Records Department [address] [place] [address] Instructions for Home/Discharge Instructions 07/29/18 1214 MR#: [id number] Acct: [id number] Name: ROSITA GRANT Rep #: [id number] : 1955 62 From: Julia Keane MD PCP: Nasim Wolff MD Status: REG SDC Discharge Diet: No Restrictions Discharge Activity: May not drive while taking narcotic pain medications., May Shower May resume sexual activity in: 1 week Call your doctor if you observe: Fever of 101 or Higher, Inability to urinate, Inability to have a bowel movement, Shortness of breath, Chest pain, Calf discomfort, Uncontrolled pain Allergies/Adverse Reactions: Allergies Sulfa (Sulfonamide Antibiotics) Allergy (Verified 03/12/18 15:19) Rash Medications to take at Discharge Hydrocodone/Acetaminophen [[place] 7.5-325 Tablet] 1 ea PO Q4H PRN PRN #14 tab 03/12/18 Lisinopril [Zestril] 40 mg PO DAILY 03/12/18 Ondansetron [Zofran Odt] 4 mg PO Q8H PRN PRN #10 tab 03/12/18 Tamsulosin HCl [Flomax] 0.4 mg PO DAILY #3 cap 03/12/18 Primary Care Physician: Nasim Wolff MD [Primary Care Provider] - Test Results: Test results from this visit will be discussed in further detail at your follow-up appointment, if applicable. Please Follow Up With: Julia Keane MD When: call for appt Proposed Discharge Date: 07/29/18 07/29/18 1216 <Electronically signed by Julia Keane MD> Date Julia Keane MD CC: Nasim Wolff MD ABDOMEN/PELVIS WITHOUT Observed: 07/29/2018 Status: F Source: [facility] CONT 7:18 AM [facility] REPOSITORY [facility] Imaging Services [address] [place] [address] Abdomen/Pelvis without Cont MR#: [id number] Acct: [id number] Name: ROSITA GRANT Rep #: [id number] : 1955 F 62 From: Twan Mejia MD PCP: Nasim Wolff MD Status: REG CLI Study: Abdomen/Pelvis without Cont Date of Exam: 07/29/18 Exam# [id number] Ordering Dr: Julia Keane MD Right flank pain, hydronephrosis, low back pain. TECHNIQUE: Helically acquired images were obtained of the abdomen and pelvis without oral or IV contrast as per renal stone protocol. A radiation dose optimization technique was used for this scan. IV Contrast dosage and agent: None. Oral contrast: None. COMPARISON: Renal ultrasound 07/25/[address] abdomen and pelvis 03/12/2018 FINDINGS: Both kidneys are normal in position. By previous CT scan, an 8 mm calyceal stone was present at the lower pole of the right kidney. By current exam, this stone now lies at the right UVJ and there is moderate hydronephrosis and hydroureter proximal to the stone. The right kidney shows no postobstructive atrophy. No stones or hydronephrosis on the left. Left renal 4 cm water density cortical cyst, unchanged. Adrenal glands are not enlarged. Lower chest: Clear. No pleural effusion Fatty infiltration of the liver. The spleen, pancreas, gallbladder, and biliary system showed no CT abnormality. Atherosclerotic abdominal aorta which is normal in caliber. No ascites or retroperitoneal lymphadenopathy. GI tract: No obstruction. Pelvis: Anteverted uterus which is normal in size. The pelvis shows no free fluid or lymphadenopathy. Urinary bladder is not well distended and is otherwise negative. No intraluminal stones. CT/Abdomen/Pelvis without Cont IMPRESSION: 1. The previously seen 8 mm right renal stone shows distal migration to the right UVJ with secondary obstruction. Moderate hydronephrosis and hydroureter on the right proximal to the stone 2. No hydronephrosis on the left. 3. Additional chronic changes, as above. Individualized dose optimization techniques were used for this CT. at 0812 Reported and signed by: Twan Mejia MD Electronically Signed: Twan Mejia, at 8:10 EST Tel , Service support , CC: Nasim Wolff MD; Juila Keane MD Chair Post Machine Operator: Signed CALCULI/STONE Observed: 07/29/2018 Status: F Source: AJAY 12:00 AM [facility] REPOSITORY Patient: ROSITA GRANT : 1955 (62/F) Acct Num: [id number] Phys: Julia Keane MD Unit Num: [id number] Loc: [facility] Specimen: [id number] Received: 07/29/18 - 1440 Spec Type: Calculi TISSUES 1 TISSUES: CALCULI COMMENT The calculus is submitted in its entirety for chemical stone analysis. The results from this study will be reported separately. GROSS DIAGNOSIS Fragments of stone, clinically right ureteral calculus, submitted entirely for stone analysis. SJ: 08/01/18 GROSS DESCRIPTION Received is one container labeled with the patient's name and designated right ureteral stone. The specimen consists of multiple fragments of stone (five) measuring 0.1 to 0.2 cm in greatest dimension. The entire specimen is submitted for stone analysis. / SJ: 07/29/18 CPT: 24604 HEADER OPERATION: Cysto, ureteroscopy, retro, laser, stent PRE-OP DIAGNOSIS: Calculus of right ureter TISSUE SUBMITTED: Calculi Signed Beto Andrade 08/01/18 <signature on file> Performed By: #### PCALC #### [facility] [address] [facility] [place], [address] KIDNEY AND BLADDER Observed: 07/25/2018 Status: F Source: [place] 4:24 PM [facility] REPOSITORY [facility] Imaging Services [address] [facility] [place] [address] Kidney and Bladder MR#: [id number] Acct: [id number] Name: ROSITA GRANT Rep #: [id number] : 1955 F 62 From: Boubacar Russell MD PCP: Nasim Wolff MD Status: REG CLI Study: Kidney and Bladder Date of Exam: 07/25/18 Exam# [id number] Ordering Dr: Nasim Wolff MD STUDY: RENAL ULTRASOUND - COMPLETE REASON FOR EXAM: Female, 62 years old. Right flank pain TECHNIQUE: Ultrasound evaluation of the kidneys was performed with real-time and static alvarez-scale imaging. COMPARISON: None. FINDINGS: RIGHT KIDNEY: Normal location of the right kidney, which is normal in size. The right kidney measures 11.9 x 6.0 x 5 point cm. There is a normal cortex of the right kidney. The renal cortex measures 1.4 cm. There is no right renal mass or cyst. There is a nonobstructing 6 mm stone There is mild hydronephrosis of the right kidney, of uncertain etiology. DISTAL RIGHT URETER: There is non-visualization of the distal right ureter. There is no demonstrated right ureterovesical junction calculus. There is a visualized right ureteral jet. LEFT KIDNEY: Normal location of the left kidney, which is normal in size. The left kidney measures 10.5 x 6.0 x 5.6 cm. There is a normal cortex of the left kidney. The renal cortex measures 1.3 cm. There is a simple 4 cm cyst. There are no left renal calculi. There is no left hydronephrosis. DISTAL LEFT URETER: There is non-visualization of the distal left ureter. There is no demonstrated left ureterovesical junction calculus. There is a visualized left ureteral jet. AORTA: There is no elongation or tortuosity of the abdominal aorta. I.V.C.: The IVC is patent. BLADDER: The bladder is sonographically normal US/Kidney and Bladder IMPRESSION: Nonobstructing right nephrolithiasis Mild right hydronephrosis of uncertain etiology Simple left renal cyst Electronically Signed: Seamus Russell MD at 17:33 EST , Service support , CC: Nasim Wolff MD Chair Post Machine Operator: Signed VITAMIN D,25 HYDROXY Collected: 06/17/2018 Status: F Source: AJAY 10:22 AM [facility] REPOSITORY TYPE CODE TESTS RESULT OUT OF RANGE REFERENCE UNITS LAB L506.1000 29.95-100.01 ng/mL Normal Vitamin D 49.6 25-OH Result Comment: Vitamin D 25(OH) Status Range Deficiency <20 ng/mL (50nmol/L) Insuffciency 20 - 30 ng/mL (50 - 75 nmol/L) Sufficiency 30 - 100 ng/mL (75 - 250 nmol/L) Toxicity >100 ng/mL (>250 nmol/L) Performed By: #### L506.1000, L509.1000, L500.2500, L501.5200, L501.9520, L506.0400, L502.0250 #### [facility] [address] [place], [address] PTHIN Collected: 06/17/2018 Status: F Source: AJAY 10:22 AM [facility] REPOSITORY TYPE CODE TESTS RESULT OUT OF RANGE REFERENCE UNITS LAB L509.1000 18.4-80.1 pg/mL High PTHIN 84.7 Performed By: #### L506.1000, L509.1000, L500.2500, L501.5200, L501.9520, L506.0400, L502.0250 #### [facility] [address] [place], [place], [address] BASIC METABOLIC Collected: 06/17/2018 Status: F Source: AJ[facility] PROFILE (BMP) 10:22 AM [facility] REPOSITORY TYPE CODE TESTS RESULT OUT OF RANGE REFERENCE UNITS LAB L501.0100 74-106 mg/dL Normal GLU 95 Result Comment: Please note revised GLUCOSE reference range effective 2017. LAB L501.1000 7-18 mg/dL Normal BUN 18 LAB L501.1100 0.55-1.02 mg/dL Normal CREAT,SERUM 0.82 Result Comment: The validity of the calculated GFR AND GFRAA in patients over 70 years has not been determined. Clinical correlation is essential. LAB L501.1110 >60 mL/min Normal EST GFR 75 Result Comment: Non- GFR Calc LAB L501.1115 >60 mL/min Normal EST GFR - AA 91 Result Comment: GFR Calc LAB L501.1300 10-20 RATIO High BUN/CRE 21.9 LAB L501.2200 8.5-10.1 mg/dL CA Normal 8.8 LAB L501.5300 136-145 mmol/L NA Normal 140 LAB L501.5600 3.5-5.1 mmol/L K Normal 3.8 LAB L501.5900 98-107 mmol/L CL Normal 106 LAB L501.6100 21.0-32.0 mmol/L Normal CO2 24.0 LAB L501.6200 5-15 Normal GAP 10 Performed By: #### L506.1000, L509.1000, L500.2500, L501.5200, L501.9520, L506.0400, L502.0250 #### [facility] [address] [place], [place], [id number] MAGNESIUM Collected: 06/17/2018 Status: F Source: SAVAGE 10:22 AM [facility] REPOSITORY TYPE CODE TESTS RESULT OUT OF RANGE REFERENCE UNITS LAB L501.5200 1.6-2.6 mg/dL Normal MG 2.2 Performed By: #### L506.1000, L509.1000, L500.2500, L501.5200, L501.9520, L506.0400, L502.0250 #### [facility] [address] [place], [place], [id number] THYROID STIM HORMONE Collected: 06/17/2018 Status: F Source: SAVAGE (TSH) 10:22 [facility] REPOSITORY TYPE CODE TESTS RESULT OUT OF RANGE REFERENCE UNITS LAB L501.9520 0.358-3.74 uIU/mL Normal TSH 1.82 Performed By: #### L506.1000, L509.1000, L500.2500, L501.5200, L501.9520, L506.0400, L502.0250 #### [facility] [address] [place], [place], [id number] T4 FREE DIRECT Collected: 06/17/2018 Status: F Source: SAVAGE 10:22 AM [facility] REPOSITORY TYPE CODE TESTS RESULT OUT OF RANGE REFERENCE UNITS LAB L506.0400 0.76-1.46 ng/dL Normal T4 FREE 0.98 DIRECT Performed By: #### L506.1000, L509.1000, L500.2500, L501.5200, L501.9520, L506.0400, L502.0250 #### [facility] [address] [place], [address] MICROALB:CREAT Collected: 06/17/2018 Status: F Source: AJAY RATIO,RANDOM UR 10:22 AM [facility] REPOSITORY TYPE CODE TESTS RESULT OUT OF RANGE REFERENCE UNITS LAB L501.1200 NO RANGE EST. mg/dL Normal UR CREAT 26.60 LAB L502.0500 NO RANGE EST. mg/L Normal 7.8 MICROALBUMIN ,UR LAB L502.0600 <30 mg/g CRE mg/g CRE Normal 29.1 MALB:CREAT Performed By: #### L506.1000, L509.1000, L500.2500, L501.5200, L501.9520, L506.0400, L502.0250 #### [facility] [address] 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 of containers..01 ThinPrep Vial TYPE CODE TESTS RESULT OUT OF RANGE REFERENCE UNITS LAB L7400.0800 . Normal DIAGN Comment Result Comment: NEGATIVE FOR INTRAEPITHELIAL LESION AND MALIGNANCY. LAB L7400.0900 . Normal ADEQ Comment Result Comment: Satisfactory for evaluation. Endocervical and/or squamous metaplastic cells (endocervical component) are present. LAB L7400.1400 . Normal PERFORM Comment Result Comment: Buddy Moreno, Caddy (ASCP) LAB L7400.1700 . Normal SIGN Comment Result Comment: Latha Barnes MD, Pathologist LAB L7400.3175 . Normal TEST METHOD Comment Result Comment: This liquid based ThinPrep(R) pap test was screened with the use of an image guided system. LAB L7400.2600 . Normal . COMM LAB L7400.2700 . Normal PAPSMR Comment Result Comment: The Pap smear is a screening test designed to aid in the detection of premalignant and malignant conditions of the uterine cervix. It is not a diagnostic procedure and should not be used as the sole means of detecting cervical cancer. Both false-positive and false-negative reports do occur. LAB L7400.2800 . Normal HPV RFLX Comment Result Comment: The HPV DNA reflex criteria were not met with this specimen result therefore, no HPV testing was performed. Performed at: - [facility] [place], [place] [id number] Cornetist: Latha Barnes MD, Phone: [phone] Performed By: #### L7400.0350 #### [facility] (refer to report for specific site) refer to report for address and phone number EMERGENCY DEPARTMENT Observed: 03/12/2018 Status: F Source: SAVAGE SUMMARY 11:35 PM [facility] REPOSITORY [facility] Medical Records Department [address] [place] [address] Emergency Department Summary 03/12/18 1529 MR#: [id number] Acct: [id number] Name: ROSITA GRANT Rep #: [id number] : 1955 62 From: Fer Barkley MD PCP: Nasim Wolff MD Status: DEP ER - ER Visit Summary Date of Service: 03/12/18 Chief Complaint: Right flank pain History of Present Illness: The patient is a 62 F history of prior kidney stone many years ago. Also hypertension and parathyroid surgery in the past. Patient states today between 1:30 PM and 2 PM she had sudden onset of right flank pain associated nausea vomiting. States the pains moderate to severe. No gross hematuria. No fever. Similar to her prior kidney stone. Prior to this she felt fine. Physical Examination: Middle-aged female playing of pain. Lying in position. Vital signs are stable and her blood pressure 223/93. Afebrile. H EENT exam unremarkable. Moist murmurs. Lungs clear to auscultation bilaterally. Heart regular rate and rhythm no murmur. Abdomen is soft and nontender. Normal bowel sounds no peritoneal signs. Nondistended. No pulsatile mass. Normal bowel sounds. Moving all 4 extremities. Neurovascularly intact. Calves without edema or cords. Back exam is nontender. Neurologically she is awake and alert. With no focal motor deficits. Test Results: BMP shows a BUN 22 creatinine 1.33 slightly elevated from prior creatinines. Urinalysis 1025 red blood cells otherwise no signs of infection. Urinalysis consistent with a kidney stone. CT flank shows a 4 mm right UVJ stone with hydronephrosis and hydroureter. There is also a right 8 mm renal stone. And most likely a left renal cyst. All these tests results were discussed with the patient and family. Emergency Department Course and Treatment: Patient received IV fluids along with IV Zofran and Dilaudid for pain. Treatment Plan: Repeat exam patient is doing much better this 1919. She was given a second dose of Dilaudid. Currently she is comfortable. They are fine with her being discharged home. She will be giving a home pack of Zofran and [place]. The pharmacy will be closed before they get there. She also be written a prescription for [place] and Zofran. And Flomax. Strain your urine for the stone. Follow-up for Mg as needed. Disposition: Discharge Impression: Acute right flank pain secondary to 4 mm right UVJ ureteral calculi. This note was generated with [employer] dictation software. It may contain incorrect words, spelling, and punctuation that were not noted in review of the chart prior to signing ED Disposition - Plan for ED Patient: Chief Complaint: Flank Pain Referrals: Nasim Wolff MD [Primary Care Provider] - What to do if you have Problems For any increased pain, shortness of breath, bleeding, nausea or vomiting, chest pain, or any unexpected problems, contact your Primary Care Provider. Call [facility] ([phone]) or report to the closest Emergency Room. Call 911 if necessary. 03/12/18 0647 <Electronically signed by Fer Barkley MD> Date Fer Barkley MD Cosigner Signature (If Indicated): Date CC: Nasim Wolff MD DISCHARGE INSTRUCTION Observed: 03/12/2018 Status: F Source: AJAY 11:35 PM [facility] REPOSITORY [facility] Medical Records Department [address] [address] Discharge Instruction 03/12/181924 MR#: [id number] Acct: [id number] Name: ROSITA GRANT Rep #: [id number] : 1955 62 From: Fer Barkley MD PCP: Nasim Wolff MD Status: DEP ER ED Disposition - Plan for ED Patient: Disposition: Home or Assisted Living Chief Complaint: Flank Pain Instructions: ED Stone Renal W Colic Prescriptions: Hydrocodone/Acetaminophen [[place] 7.5-325 Tablet] 1 ea PO Q4H PRN PRN #14 tab PRN Reason: Pain Ondansetron [Zofran Odt] 4 mg PO Q8H PRN PRN #10 tab PRN Reason: Nausea Tamsulosin HCl [Flomax] 0.4 mg PO DAILY #3 cap Referrals: Nasim Wolff MD [Primary Care Provider] - As Needed Omar Mcdermott MD [STAFF PHYSICIAN] - As Needed Additional Instructions: Plenty of fluids and rest. [place] for pain up to 2 every 4 hours as needed pain Flomax to help pass the stone. Zofran as needed for nausea. Return if intractable pain, intractable vomiting or fever. What to do if you have Problems For any increased pain, shortness of breath, bleeding, nausea or vomiting, chest pain, or any unexpected problems, contact your Primary Care Provider. Call [facility] ([phone]) or report to the closest Emergency Room. Call 911 if necessary. 03/12/18 8061 <Electronically signed by Fer Barkley MD> Date Fer Barkley MD Cosigner Signature (If Indicated): Date CC: Nasim Wolff MD URINALYSIS, COMPLETE Collected: 03/12/2018 Status: F Source: AJAY 5:20 PM [facility] REPOSITORY Order Comment: How was Urine Obtained? CLEAN CATCH TYPE CODE TESTS RESULT OUT OF RANGE REFERENCE UNITS LAB L400.3000 Yellow COLOR Normal Yellow LAB L400.3050 Clear Normal CLARITY Cloudy LAB L400.3200 Normal mg/dl Normal GLUCOSE, UR Normal LAB L400.3300 Negative mg/dL Normal BILIRUBIN URINE Negative LAB L400.3400 Negative mg/dl High 15 KETONE UR LAB L400.3465 1.002-1.030 Normal SP.GR. DIPSTX 1.010 LAB L400.3550 5.0 - 8.0 pH UR Normal 8.0 LAB L400.3600 Negative mg/dl High PROT 15 DIPSTX LAB L400.3700 Normal mg/dl Normal UROBILI Normal LAB L400.3750 Negative Normal NITRITE UR Negative LAB L400.3780 Negative /ul High OCCULT BLOOD-UR 150 LAB L400.3800 Negative /ul High LEUK 25 ESTERASE LAB L400.4050 0-5 /hpf WBC Normal 0-5 SEEN LAB L400.4100 0-5 /hpf Normal RBC-UA 10-25 SEEN LAB L400.4150 5-10 /hpf SQUAM Normal EPI 0-5 SEEN LAB L400.4300 None Seen /hpf Normal BACTERIA RARE LAB L400.4350 <or=2+ /hpf 0 Normal MUCUS, URINE SEEN Performed By: #### L400.0001 #### [facility] [address] [place], [address] BASIC METABOLIC Collected: 03/12/2018 Status: F Source: AJAY PROFILE (BMP) 4:18 PM [facility] REPOSITORY TYPE CODE TESTS RESULT OUT OF RANGE REFERENCE UNITS LAB L501.0100 74-106 mg/dL High GLU 111 Result Comment: Fasting Glucose result from 100 to 125 mg/dL suggests IMPAIRED HOMEOSTASIS per A.D.A. criteria. Please note revised GLUCOSE reference range effective 2017. LAB L501.1000 7-18 mg/dL High BUN 22 LAB L501.1100 0.55-1.02 mg/dL High CREAT,SERUM 1.33 Result Comment: The validity of the calculated GFR AND GFRAA in patients over 70 years has not been determined. Clinical correlation is essential. LAB L501.1110 >60 mL/min Low EST GFR 43 Result Comment: Non- GFR Calc LAB L501.1115 >60 mL/min Low EST GFR - AA 52 Result Comment: GFR Calc LAB L501.1255 ml/min Normal Estimated CRCL 33.94 LAB L501.1300 10-20 RATIO Normal BUN/CRE 16.5 LAB L501.2200 8.5-10 mg/dL Normal .1 CA 9.2 LAB L501.5300 136-14 mmol/L Normal 5 NA 142 LAB L501.5600 3.5-5. mmol/L Normal 1 K 3.8 Result Comment: Slight Hemolysis, Result may be falsely increased. LAB L501.5900 98-107 mmol/L High CL 109 LAB L501.6100 21.0-32.0 mmol/L Normal CO2 23.0 LAB L501.6200 5-15 Normal GAP 10 Performed By: #### L500.2500 #### [facility] [address] [facility] [place], [address] ABDOMEN/PELVIS WITHOUT Observed: 03/12/2018 Status: F Source: SAVAGE CONT 3:28 PM [facility] REPOSITORY [facility] Imaging Services [address] [place] [address] Abdomen/Pelvis without Cont MR#: [id number] Acct: [id number] Name: ROSITA GRANT Rep #: [id number] : 1955 F 62 From: Joe Sweet MD PCP: Nasim Wolff MD Status: REG ER Study: Abdomen/Pelvis without Cont Date of Exam: 03/12/18 Exam# [id number] Ordering Dr: Fer Barkley MD STUDY: CT ABDOMEN AND PELVIS WITHOUT CONTRAST REASON FOR EXAM: Female, 62 years old. Severe right flank pain. RADIATION DOSAGE (If Supplied By Facility): CTDIvol = ( 15.56 ) mGy, DLP = ( 754.06 ) mGycm TECHNIQUE: Transaxial images were obtained from the dome of the diaphragm to the symphysis pubis without oral contrast, and without intravenous contrast. Sagittal and coronal images were reconstructed. Individualized dose optimization techniques were used for this CT. COMPARISON: None. FINDINGS: The visualized lung bases are unremarkable. The visualized portions of the heart are within normal limits. There is decreased attenuation of the liver consistent with steatosis. Normal gallbladder and extrahepatic biliary system. Normal spleen. Normal pancreas. Normal bilateral adrenal glands. The right kidney suggests mild edema. There is mild hydronephrosis and moderate hydroureter down to a 4 mm right UVJ stone seen on axial image 150. Additional nonobstructing 8 mm stones seen in the right lower pole. Left kidney has a 3.9 cm probable cyst of the anterior upper pole, confirmation with ultrasound is recommended. No left renal stones. Normal visualized stomach. Normal small intestine. Normal colon. There is non-visualization of the appendix. Normal abdominal aorta. Normal inferior vena cava. Normal retroperitoneum. Normal urinary bladder. There is atrophy of the uterus. Normal abdominal wall. There are diffuse degenerative changes of the visualized lumbar spine. CT/Abdomen/Pelvis without Cont IMPRESSION: 4 mm right UVJ stone causing obstructive changes of the right kidney, collecting system and ureter. Additional 8 mm nonobstructing stone of the right lower pole. Probable 3.9 cm left renal cyst but ultrasound confirmation is recommended. Electronically Signed: Joe Sweet MD at 16:59 EDT , Service support , CC: Nasim Wolff MD; Fer Barkley MD Chair Post Machine Operator: Signed MISCELLANEOUS LAB Collected: 12/22/2017 Status: F Source: AJAY PROCEDURE 10:46 AM [facility] REPOSITORY Order Comment: Test(s) Ordered: [id number] ADDED AT [facility] TYPE CODE TESTS RESULT OUT OF RANGE REFERENCE UNITS LAB L801.1541 Normal [facility] LAB TEST Result Comment: TEST RESULT LIMITS Vitamin D, 25-Hydroxy 89.8 ng/mL 30.0 - 100.0 Vitamin D deficiency has been defined by the [place] of [employer] and an Endocrine Society practice guideline as a level of serum 25-OH vitamin D less than 20 ng/mL (1,2). The Endocrine Society went on to further define vitamin D insufficiency as a level between 21 and 29 ng/mL (2). 1. IOM ([place] of [employer]). 2010. Dietary reference intakes for calcium and D. [place]: The National Academies Press. 2. Briana MF, Mendy NC, Giana ARANDA, et al. Evaluation, treatment, and prevention of vitamin D deficiency: an Endocrine Society clinical practice guideline. JCEM. 2010; 96(7):1911-30. TESTING PERFORMED AT [facility]. ORIGINAL REPORT ON FILE IN LAB CONTAINS ADDITIONAL TEST SITE INFORMATION. Performed By: #### L801.1541 #### [facility] [address] [place], [address] BASIC METABOLIC Collected: 12/17/2017 Status: F Source: AJAY PROFILE ([facility]) 10:46 AM [facility] REPOSITORY Order Comment: Order Date: 03/12/17 Order Info: 0667-1 - BMP Order Info: 3016-3 - TSH TYPE CODE TESTS RESULT OUT OF RANGE REFERENCE UNITS LAB L501.0100 74-106 mg/dL Normal GLU 88 Result Comment: Please note revised GLUCOSE reference range effective 2017. LAB L501.1000 7-18 mg/dL Normal BUN 16 LAB L501.1100 0.55-1.02 mg/dL Normal CREAT,SERUM 0.82 Result Comment: The validity of the calculated GFR AND GFRAA in patients over 70 years has not been determined. Clinical correlation is essential. LAB L501.1110 >60 mL/min Normal EST GFR 75 Result Comment: Non- GFR Calc LAB L501.1115 >60 mL/min Normal EST GFR - AA 91 Result Comment: GFR Calc LAB L501.1300 10-20 RATIO Normal BUN/CRE 19.4 LAB L501.2200 8.5-10.1 mg/dL CA Normal 9.0 LAB L501.5300 136-145 mmol/L NA Normal 139 LAB L501.5600 3.5-5.1 mmol/L K Normal 3.9 LAB L501.5900 98-107 mmol/L CL Normal 105 LAB L501.6100 21.0-32.0 mmol/L Normal CO2 26.0 LAB L501.6200 5-15 Normal GAP 8 Performed By: #### L500.2500, L501.9520, L509.1000 #### [facility] [address] [facility] [place], [address] #### L3300.0960 #### [facility] (refer to report for specific site) refer to report for address and phone number THYROID STIM HORMONE Collected: 12/17/2017 Status: F Source: AJAY (TSH) 10:46 AM [facility] REPOSITORY Order Comment: Order Date: 03/12/17 Order Info: 0667-1 - BMP Order Info: 3016-3 - TSH TYPE CODE TESTS RESULT OUT OF RANGE REFERENCE UNITS LAB L501.9520 0.358-3.74 uIU/mL Normal TSH 1.88 Performed By: #### L500.2500, L501.9520, L509.1000 #### [facility] [address] [facility] [place], [address] #### L3300.0960 #### [facility] (refer to report for specific site) refer to report for address and phone number PTHIN Collected: 12/17/2017 Status: F Source: AJAY 10:46 AM [facility] REPOSITORY Order Comment: Order Date: 03/12/17 Order Info: 0565-1 - PTHIN TYPE CODE TESTS RESULT OUT OF RANGE REFERENCE UNITS LAB L509.1000 18.4-80.1 pg/mL Normal PTHIN 49.4 Result Comment: Please Note: PTH INTACT METHOD AND REFERENCE RANGE CHANGE Effective 09/01/2017. Performed By: #### L500.2500, L501.9520, L509.1000 #### [facility] [address] [place], [place], [address] #### L3300.0960 #### [facility] (refer to report for specific site) refer to report for address and phone number VITAMIN D 1,25-DIHYDROXY Collected: 12/17/2017 Status: F Source: AJAY 10:46 AM [facility] REPOSITORY Order Comment: Order Date: 03/12/17 Order Info: 02206-1 - GLMQ264 TYPE CODE TESTS RESULT OUT OF RANGE REFERENCE UNITS LAB L3300.0960 19.9-79.3 pg/mL High VITD 1,25 85.8 20480 Result Comment: Performed at: [address] [id number] Cornetist: Logan Woody MD, Phone: [phone] Performed By: #### L500.2500, L501.9520, L509.1000 #### [facility] [address] [place], [address] #### L3300.0960 #### [facility] (refer to report for specific site) refer to report for address and phone number ALLERGIES ALLERGIES DATE TYPE / CODE NAME / CODE REACTION SEVERITY SOURCE 03/12/2018 Drug Sulfa Rash Unknown [facility] Allergy/4160 (Sulfonamide [facility] 44581(SNOMED Antibiotics)/ Repository CT) [id number](RX NORM) ENCOUNTERS ENCOUNTERS ADMIT/DISCHARGE ACCOUNT ADMITTING ENCOUNTER LOCATION SOURCE NUMBER CLASS 08/15/2018 [id number] Ambulatory [place] [facility] ing:LABSPEC Repository 07/29/2018/ [id number] Ambulatory Ajay [place] [facility] ing:SDCRoom: Repository AC18 07/25/2018 [id number] Ambulatory Dalton [place] [facility] ing:US Repository 06/17/2018 [id number] Ambulatory Ajay Ajay [facility] ing:MFPLAB Repository 05/10/2018 [id number] Ambulatory Dalton Ajay [facility] ing:LABSPEC Repository 03/12/2018/06/30/ [id number] Emergency [place] Dalton 8 [facility] ing:ED Repository 12/17/2017 [id number] Ambulatory [place] [facility] ing:MFPLAB Repository PAYERS PAYERS ENCOUNTER GUARANTOR PAYER SUBSCRIBER SOURCE 08/15/2018 JEN ARTEAGA Primary [id number] Insurance:ANTHEMPolic RAUDEBAUGHDOB: [address] y Number: [id number], [place] [address]Yjm: [id number] Repository Date:9689-74-04VN [address] () [id number] [place] [address]IC: 08/15/2018 Secondary NOT GIVENUNK Dalton Insurance:SELF PAY [facility] Number: Effective Repository Date:2018-08-15 07/29/2018 GUSTAVO [id number] Insurance:ANTHEMPolic RAUDEBAUGHDOB: [address] y Number: [id number], [place] [address]Orw: [id number] Repository Date:0665-67-61HI [address] () [id number] [place] [address]RV: 07/29/2018 Secondary ROSITA A Ajay Insurance:[facility] PACKAGE RAUDEBAUGHDOB: [facility] Number: [id number] Repository Date:2018-07-26 07/29/2018 Tertiary NOT GIVENUNK [place] Insurance:SELF PAY [facility] Number: Effective Repository Date:2018-07-29 07/25/2018 JEN ARTEAGA Primary [id number] Insurance:ANTHEMPolic RAUDEBAUGHDOB: [address] y Number: [id number], [place] [address]Ztj: [id number] Repository Date:2007-61-03QN [address] () [place]RT[place]Y, [place] [address]XQ: 07/25/2018 Secondary NOT GIVENUNK Ajay Insurance:SELF PAY [facility] Number: Effective Repository Date:2018-07-25 06/17/2018 Jen Moss [id number] Insurance:ANTHEMPolic RAUDEBAUGHDOB: Community [address] [place] [address] y Number: [id number], [place] [address]Jvn: [id number] Repository Date:6669-49-28[address] () [place], [place] [address]NP: 06/17/2018 Secondary NOT GIVENUNK [place] Insurance:SELF PAY [facility] Number: Effective Repository Date:2018-06-17 05/10/2018 Jen Arteaga [facility] GUSTAVO [id number] Insurance:ANTHEMPolic RAUDEBAUGHDOB: Community [address] [place] [address] y Number: [id number], [place] [address]San: [id number] Repository Date:3714-79-76LG [address] () 3306[address]VOOWYXP, [place] [address]QH: 05/10/2018 Secondary NOT GIVENUNK Ajay Insurance:SELF PAY [facility] Number: Effective Repository Date:2018-05-10 03/12/2018 Jen Arteaga [facility] GUSTAVO Moss [id number] Insurance:ANTHEMPolic RAUDEBAUGHDOB: Community [address] [place] [address] y Number: [id number], [place] [address]Czp: [id number] Repository Date:4081-84-06AX [address] () 4800[address]JSLKCHL, [place] [address]GL: 03/12/2018 Secondary NOT GIVENUNK [place] Insurance:SELF PAY [facility] Number: Effective Repository Date:2018-03-12 12/17/2017 Jen Arteaga [facility] GUSTAVO Moss [id number] Insurance:ANTHEMPolic JUANITAB: Replaced By [facility] [address] y Number: [id number] , [place] [address]Jmg: [id number] Repository Date:3041-37-89QC BOX (HP) [address]11[address]FOLWZFS [place] [address]FO: 12/17/2017 Secondary NOT GIVENUNK Ajay Insurance:SELF PAY [facility] Number: Effective Repository Date:2017-12-17
== END ==
PROVIDERS: Family Provider Family Medicine; PCP Family Medicine; Visit Provider Urology
DX: N20.0 Calculus of kidney (principal)
CPT/HCPCS: 81050; 82340; 82570; 84560

== ENCOUNTER → 2019-07-21 13:03 | Outpatient (CLI) | payer BC, SELFPAY ==
[2018-07-29 11:11] VITALS: BMI 33.9
--- NOTE | 2019-07-21 13:15 | RAD_ITS ---
STUDY: X-RAY - ABDOMEN/PELVIS REASON FOR EXAM: Female, 63 years old. History of kidney stones. Evaluate for kidney stones. TECHNIQUE: Two AP supine views of the abdomen and pelvis. COMPARISON: CT of the abdomen and pelvis, July 29, 2018. FINDINGS: Normal visualized lung bases. There is an unremarkable bowel gas pattern. There is no demonstrated free abdominal air. The visualized liver, spleen and kidneys are grossly normal in size and morphology. There is no evidence for renal calculi. There are phleboliths right pelvis. The large 4 x 7 mm calcification seen on the prior CT is no longer visualized. Normal soft tissue structures. There are diffuse degenerative changes of the visualized lumbar spine. RAD/Abdomen Single View IMPRESSION: No visualized renal or ureteral calculi. Electronically Signed: Abe Pham DO at 16:52 EST Tel [phone], Service support ,
== END ==
PROVIDERS: Family Provider Family Medicine; PCP Family Medicine; Referring Provider Urology; Visit Provider Urology
DX: N20.0 Calculus of kidney (principal)
CPT/HCPCS: 74018

== ENCOUNTER → 2021-07-24 12:12 | Outpatient (CLI) | payer BC, SELFPAY ==
[2021-07-24 15:44] LABS: Anion Gap 6 (5-15); BUN 19 mg/dL (7-18); BUN/Creat Ratio 22.4 RATIO (10-20); Calcium,Total 9.4 mg/dL (8.5-10.1); Chloride 105 mmol/L (98-107); Cholesterol 232 mg/dL (200); Creatinine, Serum 0.85 mg/dL (0.55-1.02); EST Glomerular Filtration Rate 72 mL/min (>60); Est Glom Filt Rate - Afr Amer 87 mL/min (>60); Glucose 96 mg/dL (74-106); High Density Lipoprotein 51 mg/dL; Potassium 3.7 mmol/L (3.5-5.1); Sodium Level 139 mmol/L (136-145)
[2021-07-24 15:46] LABS: Vitamin D,25 Hydroxy 41.5 ng/mL
[2021-07-24 15:58] LABS: Microalbumin,Random Urine 13.7 mg/L (NO RANGE EST.); Microalbumin:Creatinine Ratio 15.6 mg/g CRE (<30 mg/g CRE)
[2021-07-25 09:45] LABS: PTHIN 34.9 pg/mL (18.4-80.1)
== END ==
PROVIDERS: PCP Family Medicine; Referring Provider Family Medicine; Visit Provider Family Medicine
DX: Z00.00 Encounter for general adult medical examination without abnormal findings (principal); I10 Essential (primary) hypertension; E21.5 Disorder of parathyroid gland, unspecified
CPT/HCPCS: 36415; 80048; 82043; 82306; 82465; 82570; 83718; 83970

== ENCOUNTER 2021-07-29 07:44 | Outpatient (RCR) | payer BC, SELFPAY ==
--- NOTE | 2021-07-29 09:01 | HP.PTEVAL ---
Patient's Visit Information ROSITA GRANT is a 65 year old F referred to Physical Therapy by Dr. Nasim Wolff MD with a diagnosis of LEFT HEEL DEFORMITY ,ACHILLES TENDONITIS. Date of Evaluation: 07/29/21 Physical Therapist: Jama Anderson PT, Cert MDT, OCS - Visit Plan Frequency: 1 VISIT Plan: HEP -EVALUATION ONLY - Subjective This 65 y/o female presents to physical therapy with left heel deformity ,Achilles tendonitis. Patient developed achilles tendon pain in Summer. Symptoms worse and noticed bump posterior heel. Seen recommended topical cream. Aggravating factors in activity sitting, morning. Denies paresthesia/tingling .Pain described as stinging/burning. Sleeping okay. Patient goal is learn HEP do on own to manage pain. SOCIAL: . VOCATION: [employer] - Pain Left Foot Pain Intensity (Out of 10): 4 Pain Intensity Range: 10 - Objective POSTURE: normal arch ,haglunds deformity. PALAPTION: achilles tendon. GAIT: reciprocal pattern. NEURO: intact. MMT: ankle 4/5. AROM: DF 5 degrees from 0 ,PF 65 degrees ,IN 35 degrees, EV 5 degrees. 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 gait Rehabilitation Potential: Good - Anticipated Interventions Patient/Client Instruction: Educate patient on: Condition, Plan of Care For the Purpose of:: To decrease pain, To improve muscle performance and motor function, To increase tolerance to activity/condition/position, To improve ability of physical actions for home/community/work/leisure, To improve gait and locomotor functions, To increase flexibility/ROM, Other Other: HEP Therapeutic Exercise to Include: Strength training, Flexibilty training, Active ROM For the Purpose of:: To decrease pain, To decrease swelling/inflammation, To improve nutrient delivery to tissue, To increase oxygenation perfusion, To improve performance and independence with ADL's, To improve gait and locomotor functions, To improve health of tissue, To decrease soft tissue restriction, To increase flexibility/ROM, Other Other: HEP Thank you for the opportunity to evaluate your patient. For Medicare and Medicare HMO plans, please review the plan of care and approve it. It will need to be FAXED BACK to us at [phone] for Medicare purposes. For Medicare only, by signing this I certify the plan of care. Please let me know if there are questions or concerns regarding this plan of care. Physician Signature: Date:
== END 2021-07-29 19:00 | disposition home or self-care (01) ==
LOC: PT 07:44
PROVIDERS: PCP Family Medicine; Referring Provider Family Medicine; Visit Provider Family Medicine
DX: M21.962 Unspecified acquired deformity of left lower leg (principal); M76.62 Achilles tendinitis, left leg
CPT/HCPCS: 97110; 97161

== ENCOUNTER → 2022-07-01 | Outpatient (CLI) | payer BC, SELFPAY ==
[2022-07-01 10:05] LABS: Absolute Lymphocyte Count 3.47 X10^3/uL (0.83-4.51); Basophil# 0.05 X10^3/uL; Basophil% 0.7 % (0-1); Eosinophil# 0.23 X10^3/uL; Eosinophils% 3.2 % (0-5); Hematocrit 43.6 % (37-47); Hemoglobin 14.3 g/dL (12.0-15.0); Lymphocyte # 3.47 X10^3/ul (0.83-4.51); Lymphocyte % 47.6 % (19-41); Mean Corp Hgb Conc 32.8 g/dL (32-36); Mean Corpuscular Hgb 29.9 pg (27.0-32.0); Mean Platelet Vol. 12.1 fl (6.2-12.0); Monocyte# 0.51 X10^3/uL; NRBC Flagged by Analyzer 0 % (0-5); Neutrophil # 3.02 X10^3/uL (2.7-7.7); Neutrophil % 41.4 % (47-70); Platelet Count 255 K/mm3 (150-450); RBC Distribution Width SD 43.1 fl (35.1-43.9); Red Blood Count 4.79 M/mm3 (4.2-5.4); White Blood Count 7.3 K/mm3 (4.4-11.0)
[2022-07-01 10:56] LABS: PTHIN 70.7 pg/mL (18.4-80.1)
[2022-07-01 10:57] LABS: ALB/GLOB Ratio 0.9 RATIO (0.9-2.4); AST(SGOT) 23 U/L (15-37); Alanine Aminotransfer ALT/SGPT 48 U/L (13-56); Albumin, Serum 3.5 g/dL (3.2-5.0); Alkaline Phosphatase 86 U/L (45-117); Anion Gap 6 (5-15); BUN 16 mg/dL (7-18); BUN/Creat Ratio 20.6 RATIO (10-20); Calcium,Total 8.9 mg/dL (8.5-10.1); Chloride 107 mmol/L (98-107); Cholesterol 232 mg/dL (200); Creatinine, Serum 0.78 mg/dL (0.55-1.02); EST Glomerular Filtration Rate 79 mL/min (>60); Est Glom Filt Rate - Afr Amer 96 mL/min (>60); Globulin 3.7 g/dL (2.2-4.2); Glucose 96 mg/dL (74-106); High Density Lipoprotein 61 mg/dL; Potassium 3.7 mmol/L (3.5-5.1); Protein, Total 7.2 g/dL (6.4-8.2); Sodium Level 139 mmol/L (136-145); Triglycerides 105 mg/dL; Very Low Density Lipoprotein 21 mg/dL (5-40)
[2022-07-01 11:49] LABS: Vitamin D,25 Hydroxy 61.3 ng/mL
== END | disposition home or self-care (01) ==
PROVIDERS: PCP Family Medicine; Referring Provider Family Medicine; Visit Provider Nurse Practitioner Family
DX: I10 Essential (primary) hypertension (principal); E55.9 Vitamin D deficiency, unspecified; Z13.220 Encounter for screening for lipoid disorders
CPT/HCPCS: 36415; 80053; 80061; 82306; 83970; 85025

== ENCOUNTER → 2023-02-19 | Outpatient (CLI) | payer MEDICARE, SELFPAY ==
[2023-02-19 12:30] LABS: Absolute Lymphocyte Count 3.82 X10^3/uL (0.83-4.51); Basophil# 0.06 X10^3/uL; Basophil% 0.8 % (0-1); Eosinophil# 0.23 X10^3/uL; Hematocrit 44.5 % (37-47); Hemoglobin 14.4 g/dL (12.0-15.0); Lymphocyte # 3.82 X10^3/ul (0.83-4.51); Lymphocyte % 50.1 % (19-41); Mean Corp Hgb Conc 32.4 g/dL (32-36); Mean Corpuscular Hgb 29.8 pg (27.0-32.0); Mean Corpuscular Volume 92.1 fL (81-99); Mean Platelet Vol. 12.1 fl (6.2-12.0); Monocyte# 0.54 X10^3/uL; Monocyte% 7.1 % (0-10); NRBC Flagged by Analyzer 0 % (0-5); Neutrophil # 2.96 X10^3/uL (2.7-7.7); Neutrophil % 38.7 % (47-70); Platelet Count 255 K/mm3 (150-450); RBC Distribution Width CV 13.2 % (11.6-14.6); RBC Distribution Width SD 45.1 fl (35.1-43.9); Red Blood Count 4.83 M/mm3 (4.2-5.4); White Blood Count 7.6 K/mm3 (4.4-11.0)
[2023-02-19 13:17] LABS: PTHIN 60.9 pg/mL (18.4-80.1)
[2023-02-19 13:25] LABS: Vitamin D,25 Hydroxy 123.6 ng/mL
[2023-02-19 13:56] LABS: ALB/GLOB Ratio 0.8 RATIO (0.9-2.4); AST(SGOT) 27 U/L (15-37); Alanine Aminotransfer ALT/SGPT 43 U/L (13-56); Albumin, Serum 3.4 g/dL (3.2-5.0); Alkaline Phosphatase 82 U/L (45-117); Anion Gap 9 (5-15); BUN 19 mg/dL (7-18); BUN/Creat Ratio 23.2 RATIO (10-20); Chloride 108 mmol/L (98-107); Creatinine, Serum 0.82 mg/dL (0.55-1.02); EST Glomerular Filtration Rate 74 mL/min (>60); Est Glom Filt Rate - Afr Amer 90 mL/min (>60); Globulin 4.2 g/dL (2.2-4.2); Glucose 95 mg/dL (74-106); Potassium 3.9 mmol/L (3.5-5.1); Protein, Total 7.6 g/dL (6.4-8.2); Sodium Level 139 mmol/L (136-145); Thyroid Stim Hormone (TSH) 2.18 uIU/mL (0.358-3.74)
[2023-02-19 16:17] LABS: Microalbumin,Random Urine 9.5 mg/L (NO RANGE EST.); Microalbumin:Creatinine Ratio 19.6 mg/g CRE (<30 mg/g CRE)
== END | disposition home or self-care (01) ==
LOC: MFPLAB 10:59
PROVIDERS: PCP Family Medicine; Visit Provider Family Medicine
DX: E21.5 Disorder of parathyroid gland, unspecified (principal); I10 Essential (primary) hypertension; E55.9 Vitamin D deficiency, unspecified
CPT/HCPCS: 36415; 80053; 82043; 82306; 82570; 83970; 84443; 85025

== ENCOUNTER → 2023-09-09 | Outpatient (CLI) | payer MEDICARE, SELFPAY ==
[2023-09-09 17:56] LABS: Vitamin D,25 Hydroxy 76.9 ng/mL
== END | disposition home or self-care (01) ==
LOC: MFPLAB 14:55
PROVIDERS: PCP Family Medicine; Visit Provider Family Medicine
DX: E55.9 Vitamin D deficiency, unspecified (principal); E21.5 Disorder of parathyroid gland, unspecified; R79.89 Other specified abnormal findings of blood chemistry
CPT/HCPCS: 36415; 82306

== ENCOUNTER → 2023-12-03 | Outpatient (CLI) | payer MEDICARE, SELFPAY ==
[2023-12-03 10:47] LABS: PTHIN 69.1 pg/mL (18.4-80.1)
[2023-12-03 10:55] LABS: Vitamin D,25 Hydroxy 52.9 ng/mL
[2023-12-03 11:36] LABS: ALB/GLOB Ratio 0.9 RATIO (0.9-2.4); AST(SGOT) 27 U/L (15-37); Alanine Aminotransfer ALT/SGPT 36 U/L (13-56); Albumin, Serum 3.6 g/dL (3.2-5.0); Alkaline Phosphatase 79 U/L (45-117); Anion Gap 8 (5-15); BUN 14 mg/dL (7-18); BUN/Creat Ratio 15.6 RATIO (10-20); Calcium,Total 8.8 mg/dL (8.5-10.1); Chloride 111 mmol/L (98-107); EST Glomerular Filtration Rate 67 mL/min (>60); Est Glom Filt Rate - Afr Amer 81 mL/min (>60); Globulin 3.8 g/dL (2.2-4.2); Glucose 100 mg/dL (74-106); Protein, Total 7.4 g/dL (6.4-8.2); Sodium Level 142 mmol/L (136-145)
[2023-12-03 12:38] LABS: Microalbumin,Random Urine 9.3 mg/L (NO RANGE EST.); Microalbumin:Creatinine Ratio 12.2 mg/g CRE (<30 mg/g CRE)
== END | disposition home or self-care (01) ==
LOC: MFPLAB 09:31
PROVIDERS: PCP Family Medicine; Visit Provider Family Medicine
DX: E21.5 Disorder of parathyroid gland, unspecified (principal); I10 Essential (primary) hypertension; E55.9 Vitamin D deficiency, unspecified
CPT/HCPCS: 36415; 80053; 82043; 82306; 82570; 83970

== ENCOUNTER → 2023-12-10 | Outpatient (CLI) | payer MEDICARE, SELFPAY ==
[2023-12-10 18:05] LABS: Anion Gap 6 (5-15); BUN 19 mg/dL (7-18); BUN/Creat Ratio 17.6 RATIO (10-20); Chloride 112 mmol/L (98-107); Creatinine, Serum 1.08 mg/dL (0.55-1.02); EST Glomerular Filtration Rate 54 mL/min (>60); Est Glom Filt Rate - Afr Amer 65 mL/min (>60); Glucose 118 mg/dL (74-106); Potassium 3.5 mmol/L (3.5-5.1); Sodium Level 143 mmol/L (136-145)
== END | disposition home or self-care (01) ==
PROVIDERS: PCP Family Medicine; Referring Provider Family Medicine; Visit Provider Family Medicine
DX: I10 Essential (primary) hypertension (principal)
CPT/HCPCS: 36415; 80048

== ENCOUNTER → 2024-01-14 | Outpatient (CLI) | payer MEDICARE, SELFPAY ==
[2024-01-14 10:39] LABS: AST(SGOT) 19 U/L (15-37); Alanine Aminotransfer ALT/SGPT 32 U/L (13-56); Albumin, Serum 3.6 g/dL (3.2-5.0); Alkaline Phosphatase 73 U/L (45-117); Anion Gap 5 (5-15); BUN 17 mg/dL (7-18); BUN/Creat Ratio 16.5 RATIO (10-20); Calcium,Total 9.2 mg/dL (8.5-10.1); Chloride 111 mmol/L (98-107); Creatinine, Serum 1.03 mg/dL (0.55-1.02); EST Glomerular Filtration Rate 57 mL/min (>60); Est Glom Filt Rate - Afr Amer 69 mL/min (>60); Globulin 3.7 g/dL (2.2-4.2); Glucose 98 mg/dL (74-106); Potassium 3.2 mmol/L (3.5-5.1); Protein, Total 7.3 g/dL (6.4-8.2); Sodium Level 142 mmol/L (136-145)
== END | disposition home or self-care (01) ==
LOC: MTLAB 09:20
PROVIDERS: PCP Family Medicine; Referring Provider Family Medicine; Visit Provider Family Medicine
DX: E87.6 Hypokalemia (principal)
CPT/HCPCS: 36415; 80053

== ENCOUNTER → 2024-02-15 | Outpatient (CLI) | payer MEDICARE, SELFPAY ==
--- NOTE | 2024-02-15 14:28 | BI_ITS ---
MAMMOGRAPHY - BILATERAL SCREENING REASON FOR EXAM: Female, 68 years old. Routine annual screening examination. PERTINENT HISTORY: Non-contributory. TECHNIQUE: Digital bilateral breast porfirio (3D mammographic acquisition) in the CC and MLO projections. 2-D mediolateral oblique (MLO) and craniocaudad (CC) views of both breasts were obtained. CAD: Full Field Digital Mammography with Computer Added Detection was performed. COMPARISON: Comparison is made with prior outside examination July 02, 2005. FINDINGS: Breast Composition: The breasts are heterogeneously dense, which may obscure small masses. There are no dominant masses or suspicious calcifications. No other significant abnormalities are identified. There has been no significant change since the prior study. BI/SCRN MAMM (CAD)W/PORFIRIO BILAT IMPRESSION: Stable bilateral screening mammogram. Yearly follow-up mammogram recommended. (A) ASSESSMENT CATEGORY: BIRADS Category 1: Negative. A letter regarding these results will be sent to the patient by the facility within 30 days. Approximately 10% of breast cancers are not detected by mammography. A normal mammogram should not delay biopsy of a clinically suspicious abnormality. [id number] Electronically Signed: Yong Noble MD at 15:29 EDT ,
--- NOTE | 2024-02-15 14:33 | BD_ITS ---
STUDY: DUAL ENERGY X-RAY ABSORPTIOMETRY / DXA REASON FOR EXAM: Female, 68 years old. V780 TECHNIQUE: Bone Mineral Density (BMD) measurements of lumbar spine and bilateral hips were obtained. COMPARISON: None. FINDINGS: Lumbar Spine (L1-L4): g/cm2 (0.999) / T-score (-0.4) / Z-score (1.4) Findings are suggestive of normal bone density with a low fracture risk. Left Femur Total: g/cm2 (1.014) / T-score (0.6) / Z-score (1.9) Left Femoral Neck: g/cm2 (0.806) / T-score (-0.4) / Z-score (1.2) Right Femur Total: g/cm2 (0.974) / T-score (0.3) / Z-score (1.6) Right Femoral Neck: g/cm2 (0.698) / T-score (-1.4) / Z-score (0.2) BD/Dexa Bone Density Study IMPRESSION: The patient is considered osteopenic as outlined below according to World Marco Organization (WHO) criteria with a low fracture risk. Reference Information: The T-score is the number of standard deviations above or below the standard which is normal for young adults at their peak bone mineral density. The World Health Organization (WHO) interprets the T-scores as follows: Above -1 Normal bone density Between -1 and -2.5 Osteopenia Equal to / or below -2.5 Osteoporosis As a practical clinical guideline, osteopenia may be graded as follows: Mild -1 through -1.5 Moderate -1.6 through -2.0 Severe -2.1 through -2.4 The Z-score is the number of standard deviations above or below age-matched controls. A Z-score of less than -1.5 would be considered abnormal. References: 1. NIH Osteoporosis and Related Bone Diseases www osteo.org 2. International Society for Clinical Densitometry www iscd.org 3. National Osteoporosis Foundation www nof.org Electronically Signed: Yong Noble MD at 14:35 EDT ,
== END | disposition home or self-care (01) ==
LOC: OPBD 14:24
PROVIDERS: PCP Family Medicine; Referring Provider Family Medicine; Visit Provider Family Medicine
DX: Z12.31 Encounter for screening mammogram for malignant neoplasm of breast (principal); Z78.0 Asymptomatic menopausal state; E21.5 Disorder of parathyroid gland, unspecified
CPT/HCPCS: 77063; 77067; 77080

== ENCOUNTER 2024-02-21 07:56 | Day surgery (SDC) | payer MEDICARE, SELFPAY ==
[2024-02-21] VITALS (8 sets, daily range): BP systolic 108–160; BP diastolic 61–85; PULSE 68–81; RESP 14–16; TEMP 36.3–36.8; O2SAT 93–97; BMI 33.0
--- NOTE | 2024-02-21 08:08 | PRE.ANES_ITS ---
ASA Classification* ASA Classification ASA Classification: 2 Assessment & Plan Anesthesia* Anesthesia Assessment Anesthesia Assessment: Discussed sedation and/or anesthesia options, risks, benefits, and alternatives with patient/parents/legal guardian. Questions invited. The patient/parents/legal guardian/POA seems to understand and agrees to proceed with anesthesia plan. Reviewed the physical assessment, medical history, allergy history and patient home medications list prior to surgery/procedure/anesthetic and documented any changes. Performed airway and anesthesia risk assessments. 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 When Was Last Pacemaker Check QUESTION #4 FULL TEXT: You/Your Family Experience fever (hyperthermia) with Anesthesia Last Oral Intake Last Oral intake: Last Oral Intake NPO since Meds taken in AM with sips of water? Meds patient instructed to take am of surgery PONV PONV - radio time sales supervisor: PONV - radio time sales supervisor Female Yes 02/16/24 14:22 HX of Motion Sickness Yes 02/16/24 14:22 HX of N/V After Surgery No 02/16/24 14:22 Non-Smoker Yes 02/16/24 14:22 Duration of Surgery greater No 02/16/24 14:22 than 60 minutes Number of Risk Factors 3 02/16/24 14:22 PONV Score Moderate Risk 02/16/24 14:22 Height & Weight Height & Weight: Anesthesia: Height & Weight Height 1.57 m 12/23/23 11:19 Respiratory Assessment Respiratory Assessment - radio time sales supervisor: Respiratory Tract Infection Hx - radio time sales supervisor Hx Respiratory Tract Infection No 02/16/24 14:22 STOP Sleep Apnea STOP Sleep Apnea - radio time sales supervisor: STOP Sleep Apnea - radio time sales supervisor Hx Hypertension Yes: CONTROLLED WITH MED 02/16/24 14:22 Hx Sleep Apnea No 02/16/24 14:22 CPAP BIPAP Do you snore loudly (louder No 02/16/24 14:22 than talking or can be heard Do you often feel tired/ No 02/16/24 14:22 fatigued/ sleepy during daytime? Has anyone observed you stop No 02/16/24 14:22 breathing during sleep? STOP Results Negative 02/16/24 14:22 QUESTION #5 FULL TEXT : Do you snore loudly (louder than talking or can be heard through closed doors)? 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 Specify any problems Hx of Preganancy in last 3 N/A 02/16/24 14:22 Months Nurse Filling Out Transfusion NBUCHER 02/16/24 14:22 & Questions: Date: 02/16/24 02/16/24 14:22 Time: 14:24 02/16/24 14:22 Patient unable to answer at this time (ie. confused, unrespo /Reproduction History /Reproductive History - radio time sales supervisor: /Reproductive Hx- radio time sales supervisor Hx Now No 02/16/24 14:22 Gestational Age (in weeks): EDC: Hx Hx Para Hx Section SAB No 02/16/24 14:22 Active Medications Active Medications: Current Medications Generic Name Dose Route Start Last Admin Trade Name Freq PRN Reason Stop Dose Admin Lactated Ringer's 1,000 mls @ 15 mls/hr 02/21/24 08:15 IV .Q48H ANA MARÍA Anesthesia Focused Assessment* Airway Assessment Mouth opens (cm): 3 Mallampati Score: II Teeth Condition: Intact Neck Range of motion (ROM): Full ROM Focused Labs Anesthesia Preop lab: CBC WBC 7.6 K/mm3 (4.4-11.0) 02/19/23 11:00 RBC 4.83 M/mm3 (4.2-5.4) 02/19/23 11:00 Hgb 14.4 g/dL (12.0-15.0) 02/19/23 11:00 Hct 44.5 % (37-47) 02/19/23 11:00 Plt Count 255 K/mm3 (150-450) 02/19/23 11:00 CHEMISTRY Potassium 3.2 mmol/L (3.5-5.1) L 01/14/24 09:25 Sodium 142 mmol/L (136-145) 01/14/24 09:25 Magnesium 2.2 mg/dL (1.6-2.6) 06/17/18 10:22 BUN 17 mg/dL (7-18) 01/14/24 09:25 Creatinine 1.03 mg/dL (0.55-1.02) H 01/14/24 09:25 Glucose 98 mg/dL (74-106) 01/14/24 09:25 TSH 2.18 uIU/mL (0.358-3.74) 02/19/23 11:00 COAG Review of Systems (Anesthesia) ROS Narrative System reviewed and no additional complaints, except as documented. [facility] Medical History (Updated 02/16/24 @ 14:28 by Radha Vidales) Wears glasses Non-smoker Calculus of kidney Parathyroid abnormality HTN (hypertension) Home Medications ?Medication ?Instructions ?Recorded ?Last Taken ?Type acetazolamide 500 mg 500 mg PO DAILY 12/23/23 Unknown History capsule,extended release amlodipine 2.5 mg tablet 2.5 mg PO DAILY 12/23/23 Unknown History magnesium oxide 400 mg PO DAILY 12/23/23 Unknown History Allergy/AdvReac Type Severity Reaction Status Date / Time Sulfa (Sulfonamide Allergy Rash Verified 02/16/24 14:18 Antibiotics) Family History (Updated 12/23/23 @ 11:14 by Lisa Cross) Mother Breast cancer Father Brain aneurysm Surgical History History of lithotripsy (~2018) History of wisdom tooth extraction Hx of tonsillectomy History of parathyroidectomy Social History (Updated 12/23/23 @ 11:14 by Lisa Cross) household members: spouse current occupational status: employed 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
[2024-02-21] MEDS: Lactated Ringers 1,000 ML 15 ML IV (08:18)
--- NOTE | 2024-02-21 09:08 | HP.PCM_ITS ---
[facility] - General General Date of Admission: 02/21/24 Date of Service: 02/21/24 Chief Complaint: Screening colonoscopy HPI Narrative ROSITA GRANT, is a 68 F who presents today for screening colonoscopy. She had a colonoscopy over 10 years ago and it was normal. She does not have any abdominal pain, cramping, change in bowel habits and no associated nausea, vomiting or diarrhea. Overall she is in very good health. [facility] Medical History (Updated 02/16/24 @ 14:28 by Radha Vidales) Wears glasses Non-smoker Calculus of kidney Parathyroid abnormality HTN (hypertension) Home Medications ?Medication ?Instructions ?Recorded ?Last Taken ?Type acetazolamide 500 mg 500 mg PO DAILY 12/23/23 02/20/24 History capsule,extended release amlodipine 2.5 mg tablet 2.5 mg PO DAILY 12/23/23 02/21/24 History magnesium oxide 400 mg PO DAILY 12/23/23 02/20/24 History Allergy/AdvReac Type Severity Reaction Status Date / Time Sulfa (Sulfonamide Allergy Rash Verified 02/21/24 08:15 Antibiotics) Family History (Updated 12/23/23 @ 11:14 by Lisa Cross) Mother Breast cancer Father Brain aneurysm Surgical History History of lithotripsy (~2018) History of wisdom tooth extraction Hx of tonsillectomy History of parathyroidectomy Social History (Updated 12/23/23 @ 11:14 by Lisa Cross) household members: spouse current occupational status: employed 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 [employer] Smoking Status: Never smoker alcohol intake: never substance use type: does not use ROS Review of Systems ROS Unobtainable: other Constitutional Constitutional: Denies fatigue, fever(s), poor appetite, weight gain or weight loss ENT HEENT: Denies mouth lesions Cardiovascular Cardiovascular: Denies abdominal bloating, abdominal edema or abdominal pain Respiratory/Chest Respiratory/Chest: Denies change in mental status, change in phlegm color, chest congestion or chest tightness Gastrointestinal Gastrointestinal: Denies belching, bloating, change in bowel habits, change in stool character, chewing difficulty, coffee ground emesis, constipation, cramping, diarrhea, dyspepsia, dysphagia, early satiety, excessive flatus, fecal incontinence, heartburn, hematemesis, hematochezia, hemorrhoids, loose stools, melena, nausea, odynophagia, rectal bleeding, tenesmus, vomiting or weight changes Genitourinary Genitourinary: Denies abdominal discomfort, burning urination or itching Musculoskeletal Musculoskeletal: Reports as per HPI; Denies muscle weakness or myalgias Integumentary Integumentary: Denies jaundice Neurologic Neurologic: Denies lack of coordination or weakness Psychiatric Psychiatric: Denies confusion, depression, memory loss, mood swings, paranoia or suicidal ideation Endocrine Endocrinology: Denies systems reviewed and no addt'l complaints, except as documented Hematologic/Lymphatic Hematologic/Lymphatic: Denies anemia, easy bleeding, easy bruising or lymphadenopathy Allergic/Immunologic Allergic/Immunologic: Denies systems reviewed and no addt'l complaints, except as documented Vital Signs Vital Signs Vital Signs: 02/21/24 08:16 02/21/24 08:16 Temperature 98.3 F Temperature Source Temporal Pulse Rate 81 Respiratory Rate 16 Respiratory Pattern Normal Blood Pressure 160/85 H Blood Pressure Mean 110 Blood Pressure Source Monitor Blood Pressure Position Semi-Fowlers Blood Pressure Location Right Arm Pulse Ox 97 Oxygen Delivery Method Room Air Weight Weight: 180 lb 5.41 oz Body Mass Index (BMI) 33.0 Physical Exam Const alert, oriented x3, no apparent distress, healthy appearing and well nourished General Appearance: cooperative, comfortable, well kempt and well developed Orientation / Consciousness: awake and oriented to person HEENT Head and Scalp: normocephalic and atraumatic Face and Sinus: normal facial exam Mouth: oral and palatal mucosa normal Eyes General Eye: normal appearance of both eyes Neck full ROM Lymph Lymphatic: no lymphadenopathy noted Chest inspection of chest normal Resp normal respiratory effort and no use of accessory muscles Cardio regular rate and regular rhythm GI normal to inspection, nondistended, normoactive bowel sounds, soft to palpation, non-tender, non-distended and no masses Auscultation: normoactive bowel sounds Palpation: soft Percussion: normal to percussion Rectal Exam: visual inspection normal and normal sphincter tone no CVA tenderness Back/Spine no CVA tenderness and normal ROM Extremity normal to inspection Peripheral Pulses: Yes pulses 2+ throughout Skin no rashes or lesions noted General Skin Exam: no breakdown, elasticity normal and turgor normal Neuro oriented x3 Motor Exam: strength 5/5 throughout Psych mental status grossly normal Appearance: grossly normal Attitude: calm Activity / Motor Behavior: appropriate eye contact Speech: normal speech Thought Process: normal thought process Thought Content: normal thought content Attention / Concentration: attention grossly intact Memory / Cognition: memory grossly intact Insight: insight good Judgement: judgement good Assessment & Plan Assessment/Plan (1) Encounter for screening for malignant neoplasm of colon: PLAN: She was explained alternatives, risk, benefits including not withstanding bleeding, infection, sepsis, perforation, and need for emergent surgery and . She will have an ASA of 3 for the procedure.
--- NOTE | 2024-02-21 09:31 | PRE.ANES_ITS ---
ASA Classification* ASA Classification ASA Classification: 2 and E Assessment & Plan Anesthesia* Anesthesia Assessment Anesthesia Assessment: Discussed sedation and/or anesthesia options, risks, benefits, and alternatives with patient/parents/legal guardian. Questions invited. The patient/parents/legal guardian/POA seems to understand and agrees to proceed with anesthesia plan. Reviewed the physical assessment, medical history, allergy history and patient home medications list prior to surgery/procedure/anesthetic and documented any changes. Performed airway and anesthesia risk assessments. 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 When Was Last Pacemaker Check QUESTION #4 FULL TEXT: You/Your Family Experience fever (hyperthermia) with Anesthesia Last Oral Intake Last Oral intake: Last Oral Intake NPO since 04:00 02/21/24 08:16 Meds taken in AM with sips of No 02/21/24 08:16 water? 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 Female Yes 02/16/24 14:22 HX of Motion Sickness Yes 02/16/24 14:22 HX of N/V After Surgery No 02/16/24 14:22 Non-Smoker Yes 02/16/24 14:22 Duration of Surgery greater No 02/16/24 14:22 than 60 minutes Number of Risk Factors 3 02/16/24 14:22 PONV Score Moderate Risk 02/16/24 14:22 Height & Weight Height & Weight: Anesthesia: Height & Weight Height 1.57 m 02/21/24 08:16 Weight: 81.8 kg 02/21/24 08:16 Body Mass Index (BMI) 33.0 02/21/24 08:16 Respiratory Assessment Respiratory Assessment - grounds maintenance supervisor: Respiratory Tract Infection Hx - grounds maintenance supervisor Hx Respiratory Tract Infection No 02/16/24 14:22 STOP Sleep Apnea STOP Sleep Apnea - grounds maintenance supervisor: STOP Sleep Apnea - grounds maintenance supervisor Hx Hypertension Yes: CONTROLLED WITH MED 02/16/24 14:22 Hx Sleep Apnea No 02/16/24 14:22 CPAP BIPAP Do you snore loudly (louder No 02/16/24 14:22 than talking or can be heard Do you often feel tired/ No 02/16/24 14:22 fatigued/ sleepy during daytime? Has anyone observed you stop No 02/16/24 14:22 breathing during sleep? STOP Results Negative 02/16/24 14:22 QUESTION #5 FULL TEXT : Do you snore loudly (louder than talking or can be heard through closed doors)? 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 Specify any problems Hx of Preganancy in last 3 N/A 02/16/24 14:22 Months Nurse Filling Out Transfusion NBUCHER 02/16/24 14:22 & Questions: Date: 02/16/24 02/16/24 14:22 Time: 14:24 02/16/24 14:22 Patient unable to answer at this time (ie. confused, unrespo /Reproduction History /Reproductive History - grounds maintenance supervisor: /Reproductive Hx- grounds maintenance supervisor Hx Now No 02/16/24 14:22 Gestational Age (in weeks): EDC: Hx Hx Para Hx Section SAB No 02/16/24 14:22 Active Medications Active Medications: Current Medications Generic Name Dose Route Start Last Admin Trade Name Freq PRN Reason Stop Dose Admin Lactated Ringer's 1,000 mls @ 15 mls/hr 02/21/24 08:15 02/21/24 08:18 IV 15 mls/hr .Q48H ANA MARÍA Administration Anesthesia Focused Assessment* Temperature: 98.3 F Pulse Rate: 81 Blood Pressure: 160/85 Respiratory Rate: 16 Pulse Ox: 97 Airway Assessment Mouth opens (cm): 3 Mallampati Score: II Focused Labs Anesthesia Preop lab: CBC WBC 7.6 K/mm3 (4.4-11.0) 02/19/23 11:00 RBC 4.83 M/mm3 (4.2-5.4) 02/19/23 11:00 Hgb 14.4 g/dL (12.0-15.0) 02/19/23 11:00 Hct 44.5 % (37-47) 02/19/23 11:00 Plt Count 255 K/mm3 (150-450) 02/19/23 11:00 CHEMISTRY Potassium 3.2 mmol/L (3.5-5.1) L 01/14/24 09:25 Sodium 142 mmol/L (136-145) 01/14/24 09:25 Magnesium 2.2 mg/dL (1.6-2.6) 06/17/18 10:22 BUN 17 mg/dL (7-18) 01/14/24 09:25 Creatinine 1.03 mg/dL (0.55-1.02) H 01/14/24 09:25 Glucose 98 mg/dL (74-106) 01/14/24 09:25 TSH 2.18 uIU/mL (0.358-3.74) 02/19/23 11:00 COAG Review of Systems (Anesthesia) ROS Narrative System reviewed and no additional complaints, except as documented. [facility] Medical History (Updated 02/16/24 @ 14:28 by Radha Vidales) Wears glasses Non-smoker Calculus of kidney Parathyroid abnormality HTN (hypertension) Home Medications ?Medication ?Instructions ?Recorded ?Last Taken ?Type acetazolamide 500 mg 500 mg PO DAILY 12/23/23 02/20/24 History capsule,extended release amlodipine 2.5 mg tablet 2.5 mg PO DAILY 12/23/23 02/21/24 History magnesium oxide 400 mg PO DAILY 12/23/23 02/20/24 History Allergy/AdvReac Type Severity Reaction Status Date / Time Sulfa (Sulfonamide Allergy Rash Verified 02/21/24 08:15 Antibiotics) Family History (Updated 12/23/23 @ 11:14 by Lisa Cross) Mother Breast cancer Father Brain aneurysm Surgical History History of lithotripsy (~2018) History of wisdom tooth extraction Hx of tonsillectomy History of parathyroidectomy Social History (Updated 12/23/23 @ 11:14 by Lisa Cross) household members: spouse current occupational status: employed 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
--- NOTE | 2024-02-21 09:33 | PCM.POST.ANE ---
Anesthesia: Postop Eval I Current Vital Signs Temperature: 97.4 F Pulse Rate: 72 Blood Pressure: 116/63 Respiratory Rate: 14 Pulse Ox: 94 Oxygen Delivery Method: Room Air Assessment Airway patent: Yes Spontaneous unlabored respirations: Yes Mental status: Asleep nausea: No Vomiting: No Anesthesia Complication: No Fluid Hydration Crystalloid volume administer (ml): 150 Total IV fluid infused: 150 Progress Note Anesthesia document: Postop Eval 1 completed: Yes
--- NOTE | 2024-02-21 09:39 | OP.CCLET_ITS ---
02/21/2024 Nasim Wolff [address] [facility] [address] [place] [address] Re : Colonoscopy procedure for Charline Rocco Dear Dr. Wolff This procedure was performed on Wednesday, February 21, 2024. My impressions and recommendations are as follows: Impressions : - Diverticulosis in the recto-sigmoid colon and in the sigmoid colon. - The examination was otherwise normal on direct and retroflexion views. - No specimens collected. Recommendations : - Discharge patient to home. - Resume previous diet. - Continue present medications. - Repeat colonoscopy in 10 years for screening purposes. My findings are described in the full procedure note, which is enclosed. If I can be of further assistance, please feel free to contact me at . Sincerely, Jose Escobar, 02/21/2024 9:38:42 AM This report has been signed electronically.
--- NOTE | 2024-02-21 09:39 | OP.COLON_ITS ---
Patient Name: Charline Valiente Procedure Date: 02/21/2024 9:18 AM Date of : 1955 Age: 68 Procedure: Colonoscopy Indications: Screening for colorectal malignant neoplasm Providers: Jose Escobar DO Referring MD: Nasim Wolff Medicines: Monitored Anesthesia Care Patient Profile: This is a 68 year old female. Refer to note in patient chart for documentation of history and physical. Last Colonoscopy: none. The patient's first colonoscopy is today. Complications: No immediate complications. Procedure: Pre-Anesthesia Assessment: - Prior to the procedure, a History and Physical was performed, and patient medications and allergies were reviewed. The patient is competent. The risks and benefits of the procedure and the sedation options and risks were discussed with the patient. All questions were answered and informed consent was obtained. Patient identification and proposed procedure were verified by the physician. Mental Status Examination: alert and oriented. Airway Examination: normal oropharyngeal airway and neck mobility. Respiratory Examination: clear to auscultation. CV Examination: normal. Prophylactic Antibiotics: The patient does not require prophylactic antibiotics. Prior Anticoagulants: The patient has taken no anticoagulant or antiplatelet agents. ASA Grade Assessment: II - A patient with mild systemic disease. After reviewing the risks and benefits, the patient was deemed in satisfactory condition to undergo the procedure. The anesthesia plan was to use monitored anesthesia care (MAC). Immediately prior to administration of medications, the patient was re-assessed for adequacy to receive sedatives. The heart rate, respiratory rate, oxygen saturations, blood pressure, adequacy of pulmonary ventilation, and response to care were monitored throughout the procedure. The physical status of the patient was re-assessed after the procedure. After I obtained informed consent, the scope was passed under direct vision. Throughout the procedure, the patient's blood pressure, pulse, and oxygen saturations were monitored continuously. The Colonoscope was introduced through the anus and advanced to the cecum, identified by appendiceal orifice and ileocecal valve. The colonoscopy was performed without difficulty. The patient tolerated the procedure well. The quality of the bowel preparation was adequate. The terminal ileum, ileocecal valve, appendiceal orifice, and rectum were photographed. Scope In: 9:23:37 AM Scope Withdrawal Time 0 hours 6 minutes 38 seconds Scope Out: 9:33:02 AM Total Procedure Duration Time 0 hours 9 minutes 25 seconds Findings: The perianal and digital rectal examinations were normal. A few small-mouthed diverticula were found in the recto-sigmoid colon and sigmoid colon. The exam was otherwise without abnormality on direct and retroflexion views. Impression: - Diverticulosis in the recto-sigmoid colon and in the sigmoid colon. - The examination was otherwise normal on direct and retroflexion views. - No specimens collected. Recommendation: - Discharge patient to home. - Resume previous diet. - Continue present medications. - Repeat colonoscopy in 10 years for screening purposes. Procedure Code(s): --- Professional --- G0121, Colorectal cancer screening; colonoscopy on individual not meeting criteria for high risk CPT copyright 2021 [employer]. All rights reserved. The codes documented in this report are preliminary and upon branding specialist review may be revised to meet current compliance requirements. Jose Escobar DO 02/21/2024 9:38:42 AM This report has been signed electronically. Number of Addenda: 0 Note Initiated On: 02/21/2024 9:18 AM
--- NOTE | 2024-02-21 09:43 | POSTOPAN2_ITS ---
Anesthesia Postop Eval I Sum Postop Eval Completion status Anesthesia document: Postop Eval 1 completed: Yes Anesthesia Postop Eval I Summary Anesthesia Postop Eval I Summary: Anesthesia Postop Eval I: Assessment Summary Airway patent Yes 02/21/24 09:43 TAX [email or web address] Spontaneous unlabored Yes 02/21/24 09:43 TAX [email or web address] respirations Mental status Asleep 02/21/24 09:43 TAX [email or web address] nausea No 02/21/24 09:43 TAX [email or web address] Vomiting No 02/21/24 09:43 TAX [email or web address] Anesthesia Postop Eval I: Fluid Summary Crystalloid volume administer 150 02/21/24 09:43 TAX [email or web address] (ml) Colloids volume administered ( ml) Blood Product volume administered (ml) Total IV fluid infused 150 02/21/24 09:43 TAX [email or web address] Anesthesia Postop Eval I: Summary Notes Anesthesia Complication No 02/21/24 09:43 TAX [email or web address] Anesthesia Complication Comment: Post-operative progress note Anesthesia: Postop Eval II Evaluation Mental status: Awake Pain Level: 0 nausea: No Vomiting: No Complications Anesthesia Complication: No
--- NOTE | 2024-02-21 09:43 | PCM.POSTANE2 ---
Anesthesia Postop Eval I Sum Postop Eval Completion status Anesthesia document: Postop Eval 1 completed: Yes Anesthesia Postop Eval I Summary Anesthesia Postop Eval I Summary: Anesthesia Postop Eval I: Assessment Summary Airway patent Yes 02/21/24 09:43 [email or web address] Spontaneous unlabored Yes 02/21/24 09:43 [email or web address] respirations Mental status Asleep 02/21/24 09:43 [email or web address] nausea No 02/21/24 09:43 [email or web address] Vomiting No 02/21/24 09:43 [email or web address] Anesthesia Postop Eval I: Fluid Summary Crystalloid volume administer 150 02/21/24 09:43 [email or web address] (ml) Colloids volume administered ( ml) Blood Product volume administered (ml) Total IV fluid infused 150 02/21/24 09:43 [email or web address] Anesthesia Postop Eval I: Summary Notes Anesthesia Complication No 02/21/24 09:43 [email or web address] Anesthesia Complication Comment: Post-operative progress note Anesthesia: Postop Eval II Evaluation Mental status: Awake Pain Level: 0 nausea: No Vomiting: No Complications Anesthesia Complication: No
== END 2024-02-21 10:33 | disposition home or self-care (01) ==
LOC: EN 07:56 → AC 07:57
PROVIDERS: PCP Family Medicine; Referring Provider Family Medicine; Visit Provider Internal Medicine Gastroenterology
PROC: 0DJD8ZZ Inspection of Lower Intestinal Tract, Via Natural or Artificial Opening Endoscopic (ICD-10-PCS; CPT 45378; principal; 2024-02-21 08:55)
DX: Z12.11 Encounter for screening for malignant neoplasm of colon (principal); K57.30 Diverticulosis of large intestine without perforation or abscess without bleeding; I10 Essential (primary) hypertension; Z79.899 Other long term (current) drug therapy
CPT/HCPCS: 45378; J7120; J2405

== ENCOUNTER → 2024-11-28 | Outpatient (CLI) | payer MEDICARE, SELFPAY ==
[2024-11-28 12:04] LABS: Hematocrit 43.3 % (37-47); Hemoglobin 14.6 g/dL (12.0-15.0); Mean Corp Hgb Conc 33.7 g/dL (32-36); Mean Corpuscular Hgb 30.7 pg (27.0-32.0); Platelet Count 267 K/mm3 (150-450); RBC Distribution Width CV 13.2 % (11.6-14.6); Red Blood Count 4.76 M/mm3 (4.2-5.4); White Blood Count 7.5 K/mm3 (4.4-11.0)
[2024-11-28 12:41] LABS: ALB/GLOB Ratio 1.3 RATIO (0.9-2.4); AST(SGOT) 25 U/L (<=31); Alanine Aminotransfer ALT/SGPT 32 U/L (<=34); Albumin, Serum 4.2 g/dL (3.4-4.8); Alkaline Phosphatase 85 U/L (35-104); Anion Gap 13 (5-15); BUN 16 mg/dL (4-19); Carbon Dioxide 21.2 mmol/L (21.0-32.0); Chloride 108 mmol/L (98-108); Creatinine, Serum 0.98 mg/dL (0.70-1.20); EST Glomerular Filtration Rate 64 (>60); Globulin 3.1 g/dL (2.2-4.2); Glucose 95 mg/dL (70-99); PTHIN 47 pg/mL (11-61); Potassium 3.4 mmol/L (3.3-5.1); Protein, Total 7.3 g/dL (5.9-8.4); Sodium Level 142 mmol/L (133-145); Total Bilirubin 0.42 mg/dL (0.00-1.30); Vitamin D,25 Hydroxy 32.6 ng/mL (30-100)
[2024-11-28 13:11] LABS: Microalbumin,Random Urine < 12.0 mg/L (NO RANGE EST.); Microalbumin:Creatinine Ratio UNABLE TO CALCULATE mg/g CRE
== END | disposition home or self-care (01) ==
LOC: MFPLAB 10:45
PROVIDERS: PCP Family Medicine; Referring Provider Family Medicine; Visit Provider Family Medicine
DX: I10 Essential (primary) hypertension (principal); E21.5 Disorder of parathyroid gland, unspecified
CPT/HCPCS: 36415; 80053; 82043; 82306; 82570; 83970; 85027

== ENCOUNTER → 2025-04-23 | Outpatient (CLI) | payer MEDICARE, SELFPAY | END | disposition home or self-care (01) | LOC: MFPLAB 13:43 | PROVIDERS: PCP Family Medicine; Visit Provider Family Medicine | DX: N39.0 Urinary tract infection, site not specified (principal) | CPT/HCPCS: 87077; 87086; 87088; 87186 ==

== ENCOUNTER 2025-05-10 16:13 | Outpatient (CLI) | payer MEDICARE, SELFPAY ==
--- NOTE | 2025-05-10 | EMB_PTH ---
PATIENT: ROSITA GRANT [facility] U#:[id number] AGE/SX: 69/F ROOM: RE05/10/[address]: PERICO Hanlye : 1955 BED: DIS: 05/10/2025 SPEC #: [id number] RECD: 05/10/25 16:37 STATUS: PAUL VEE #: [id number] IGOR: 05/10/25 00:[address]: Nicol Pastrana NP DEPT: SURGICAL PATHOLOGY RECD BY: Ej Block ENTERED: 05/11/25 10:13 SP TYPE: ENDOM BX/C MILES DR: Dr. Nasim Wolff MD Tissues: A - Endometrium, NOS Procedures: Surgery Specimen Level IV HEADER OPERATION: Endometrial biopsy PRE-OP DIAGNOSIS: Post menopausal bleeding TISSUE SUBMITTED: A- Endometrial lining MICROSCOPIC DIAGNOSIS A. Uterus, endometrium, biopsy: - Mildly disordered proliferative endometrium - see note. - Benign endocervical mucosa. Note: Clinical correlation is necessary to assess the adequacy of this sampling. MICROSCOPIC DESCRIPTION Slides are reviewed. GROSS DESCRIPTION Received in formalin labeled with the patient's name and date of is a 2.8 x 1.7 x 0.2 cm aggregate of mucoid material and flecks of pink-red tissue. Entirely submitted in 1 cassette. Entirety of the specimen may not survive processing. [facility] 05/11/2025 CPT:55048
--- OUTSIDE RECORDS SUMMARY | 2025-05-10 20:16 | XMS RPT_ITS | CCD ---
Author Organization [facility] Care Team Providers Care Entry Level Accountant Name Role Phone Dr. Nasim Wolff Primary Care Provider Lisa Cross Attending Provider Unavailable New MORELOS, Dr. Rouse Primary Care Provider New MORELOS, Dr. Rouse Attending Provider [phone] [place]ELOS, Dr. Rouse Referring Provider New MORELOS, Dr. Rouse Primary Care Provider [place]ELOS, Dr. Rouse Attending Provider Nasim Wolff Primary Care Unavailable Nasim Wolff Attending Unavailable Nasim Wolff Referring Unavailable Nasim Wolff Attending Unavailable Nasim Wolff Primary Care Unavailable Nasim Wolff Attending Unavailable Nasim Wolff Primary Care Unavailable [place]ELOS, Dr. Rouse Referring Provider Nicol Hernandez Attending Provider Allergies Allergy Classification Reported Allergen(s) Allergy Type Date of Onset Reaction(s) Facility (9 sources) Sulfonamides (Antibiotic) Allergy to substance 8 [facility] (1 source) Sulfonamides (Antibiotic) Drug allergy (disorder) 4 [facility] Repository Medications Current Medications Medication Drug Class(es) Dates Sig (Normalized) Sig (Original) 12 hr acetaZOLAMIDE 500 mg extended release oral capsule (4 sources) Carbonic Anhydrase Inhibitor Start: 12-23-2023 take 1 capsule by mouth once daily Acetazolamide 500 mg capsule, extended release Active 500 mg PO DAILY December 23, 2023 12:00am amLODIPine 2.5 mg oral tablet (4 sources) Dihydropyridine Calcium Channel Abby Start: 12-23-2023 take 1 tablet by mouth once daily Amlodipine 2.5 mg tablet Active 2.5 mg PO DAILY December 23, 2023 12:00am magnesium oxide 400 mg oral tablet (4 sources) Start: 12-23-2023 take 1 tablet by mouth once daily Magnesium Oxide 400 mg magnesium tablet Active 400 mg PO DAILY December 23, 2023 12:00am Completed/Discontinued Medications Medication Drug Class(es) Dates Sig (Normalized) Sig (Original) acetaminophen 325 mg / HYDROcodone bitartrate 7.5 mg oral tablet (9 sources) Opioid Agonist Start: 03-12-2018 End: 02-16-2024 Hydrocodone-Acetami nophen 1 TABLET tablet Discontinued 1 NMA PO EVERY 4 HOURS NEEDED as needed for Pain 14 0 March 12, 2018 7:26pm February 16, 2024 2:21pm Calculus of right kidney Calculus of kidney Start: 03-12-2018 Hydrocodone-Ac etaminophen Active 1 EACH PO EVERY 4 HOURS NEEDED 14 March 12, 2018 7:26pm cephalexin 500 mg oral capsule (9 sources) Cephalosporin Antibacterial Start: 07-29-2018 End: 08-03-2018 take 1 capsule by mouth three times daily Cephalexin 500 MG capsule Discontinued 500 mg PO THREE TIMES A DAY 15 5 0 July 29, 2018 1:00am August 02, 2018 1:00am August 03, 2018 1:09am post-operative lisinopril 40 mg oral tablet (9 sources) Angiotensin Converting Enzyme Inhibitor Start: 03-12-2018 End: 12-23-2023 take 1 tablet by mouth once daily Lisinopril (Zestril) 40 MG tablet Discontinued 40 mg PO DAILY March 12, 2018 12:00am December 23, 2023 11:15am ondansetron 4 mg disintegrating oral tablet (9 sources) Serotonin-3 Receptor Antagonist Start: 03-12-2018 End: 02-16-2024 take 1 tablet by mouth every eight hours as needed for nausea Ondansetron 4 MG tablet Discontinued 4 mg PO EVERY 8 HOURS NEEDED as needed for Nausea 10 March 12, 2018 12:00am February 16, 2024 2:21pm phenazopyridine hydrochloride 200 mg oral tablet (9 sources) Start: 07-29-2018 End: 08-05-2018 take 1 tablet by mouth three times daily as needed for muscle spasms Phenazopyridine 200 MG tablet Discontinued 200 mg PO 3 TIMES DAILY NEEDED as needed for Bladder Spasms 30 7 0 July 29, 2018 1:00am August 04, 2018 1:00am August 05, 2018 1:12am tamsulosin hydrochloride 0.4 mg oral capsule (9 sources) alpha-Adrenergic Abby Start: 03-12-2018 End: 02-16-2024 take 1 capsule by mouth once daily Tamsulosin 0.4 MG capsule Discontinued 0.4 mg PO DAILY 3 0 March 12, 2018 12:00am February 16, 2024 2:21pm Problems Problem Classification Problem Date Documented Date Episodic/Chronic Calculus of urinary tract (9 sources) Ureteric stone; Translations: [Calculus of ureter] 07-29-2018 Episodic Essential hypertension (2 sources) Essential (primary) hypertension; Translations: [Essential (primary) hypertension] Onset: 11-28-2024 Chronic Menopausal disorders (2 sources) Postmenopausal bleeding; Translations: [Postmenopausal bleeding] 05-10-2025 Chronic Comment on above: TVUS 05/17/24; EMB pen ding Other diseases of kidney and ureters (9 sources) Hydronephrosis; Translations: [Unspecified hydronephrosis] 07-29-2018 Episodic Other endocrine disorders (1 source) Disorder of parathyroid gland, unspecified; Translations: [Disorder of parathyroid gland, unspecified] Onset: 11-28-2024 Chronic Other screening for suspected conditions (not mental disorders or infectious disease) (4 sources) Patient encounter status; Translations: [Encounter for screening for malignant neoplasm of colon] 12-23-2023 Episodic Urinary tract infections (1 source) Urinary tract infection, site not specified; Translations: [Urinary tract infection, site not specified] Onset: 04-27-2025 Episodic Results Test Name Value Interpretation Reference Range Facility Urine Cultureon 04-25-2025 [facility] Order Date: 04/23/25 Order Info: [id number] - [facility] Comments: uti Streptococcus agalactiae (B) Corolla Count >100,000 Streptococcus agalactiae (B): REACTION Ampicillin Islt FELICIA <=0.25 cefTRIAXone Islt FELICIA <=0.12 S Clindamycin Islt FELICIA <=0.25 S Clindamycin.induce d Susc Islt NEG Linezolid Islt FELICIA <=2 S Vancomycin Islt FELICIA 0.5 S Normal [facility] Comment on above: Performed By: #### M 100.2200 #### [facility] [address] [place], [address] Urine cultureOrdered By: Chandrakant Oglesby on 04-23-2025 Bacteria identified Cx Nom (U) Streptococcus agalactiae (B) Abnormal [facility] Albumin DL <= 20 mg/L (U) [M ass/Vol]Ordered By: Nasim Wolff on 11-28-2024 Urine Random Microalbumin < 12.0 mg/L NO RANGE EST. [facility] Anion gap in Serum or Plasma Ordered By: Nasim Wolff on 11-28-2024 Anion gap [Moles/Vol] 13 mmol/L 5-15 [facility] BUN/creatinine ratioOrdered By: Nasim Wolff on 11-28-2024 Urea nitrogen/Creatinine [Mass ratio] 16.0 mg/mg 10-20 [facility] Bilirubin, totalOrdered By: Nasim Wolff on 11-28-2024 Bilirubin [Mass/Vol] 0.42 mg/dL 0.00-1.30 [facility] CBC-Complete Blood Cnt No Di ffon 11-28-2024 Erythrocyte distribution width (RBC) [Ratio] 13.2 % Normal 11.6-14.6 [facility] Comment on above: Order Comment: Order Date: 11/28/24 Order Info: [id number] - CBC Performed By: #### L 100.0500, L502.0250, L500.4050 #### [facility] [address] [place], [address] Hematocrit (Bld) [Volume fraction] 43.3 % Normal 37-47 [facility] Comment on above: Order Comment: Order Date: 11/28/24 Order Info: [id number] - CBC Performed By: #### L 100.0500, L502.0250, L500.4050 #### [facility] [address] [place], [address] Hemoglobin (Bld) [Mass/Vol] 14.6 g/dL Normal 12.0-15.0 [facility] Comment on above: Order Comment: Order Date: 11/28/24 Order Info: [id number] - CBC Performed By: #### L 100.0500, L502.0250, [id number] #### [facility] [address] [place], [address] MCH (RBC) [Entitic mass] 30.7 pg Normal 27.0-32.0 [facility] Comment on above: Order Comment: Order Date: 11/28/24 Order Info: [id number] - CBC Performed By: #### L 100.0500, L502.0250, [id number] #### [facility] [address] [place], [address] MCHC (RBC) [Mass/Vol] 33.7 g/dL Normal 32-36 [facility] Comment on above: Order Comment: Order Date: 11/28/24 Order Info: [id number] - CBC Performed By: #### L 100.0500, L502.0250, [id number] #### [facility] [address] [place], [address] MCV (RBC) [Entitic vol] 91.0 fL Normal 81-99 [facility] Comment on above: Order Comment: Order Date: 11/28/24 Order Info: [id number] - CBC Performed By: #### L 100.0500, L502.0250, [id number] #### [facility] [address] [place], [address] Platelet mean volume (Bld) [Entitic vol] 12.0 fL Normal 6.2-12.0 [facility] Comment on above: Order Comment: Order Date: 11/28/24 Order Info: [id number] - CBC Performed By: #### L 100.0500, L502.0250, L500.4050 #### [facility] [address] [place], [address] Platelets (Bld) [#/Vol] 267 10*3/uL Normal 150-450 [facility] Comment on above: Order Comment: Order Date: 11/28/24 Order Info: [id number] - CBC Performed By: #### L 100.0500, L502.0250, [id number] #### [facility] [address] [place], [address] RBC (Bld) [#/Vol] 4.76 10*6/uL Normal 4.2-5.4 [facility] Comment on above: Order Comment: Order Date: 11/28/24 Order Info: [id number] - CBC Performed By: #### L 100.0500, L502.0250, [id number] #### [facility] [address] [place], [address] RDW SD 44.0 fl High 35.1-43.9 [facility] Comment on above: Order Comment: Order Date: 11/28/24 Order Info: [id number] - CBC Performed By: #### L 100.0500, L502.0250, [id number] #### [facility] [address] [place], [address] WBC (Bld) [#/Vol] 7.5 10*3/uL Normal 4.4-11.0 [facility] Comment on above: Order Comment: Order Date: 11/28/24 Order Info: [id number] - CBC Performed By: #### L 100.0500, L502.0250, [id number] #### [facility] [address] [place], [address] Carbon dioxide, total [Moles /volume] in Central venous bloodOrdered By: Nasim Wolff on 11-28-2024 CO2 [Moles/Vol] 21.2 mmol/L 21.0-32.0 [facility] Chloride assayOrdered By: Ravin Wolff on 11-28-2024 Chloride [Moles/Vol] 108 mmol/L 98-108 [facility] Comprehensive Metabolic Prof ilon 11-28-2024 Albumin [Mass/Vol] 4.2 g/dL Normal 3.4-4.8 [facility] Comment on above: Order Comment: Order Date: 11/28/24 Order Info: [id number] - CMP Performed By: #### L 100.0500, L502.0250, L500.4050 #### [facility] [address] [place], [address] Albumin/Globulin [Mass ratio] 1.3 {ratio} Normal 0.9-2.4 [facility] Comment on above: Order Comment: Order Date: 11/28/24 Order Info: [id number] - CMP Performed By: #### L 100.0500, L502.0250, [id number] #### [facility] [address] [place], [address] ALK PHOS 85 U/L Normal 35-104 [facility] Comment on above: Order Comment: Order Date: 11/28/24 Order Info: [id number] - CMP Performed By: #### L 100.0500, L502.0250, [id number] #### [facility] [address] [place], [address] ALT [Catalytic activity/Vol] 32 U/L Normal <=34 [facility] Comment on above: Order Comment: Order Date: 11/28/24 Order Info: [id number] - CMP Performed By: #### L 100.0500, L502.0250, [id number] #### [facility] [address] [place], [address] AST [Catalytic activity/Vol] 25 U/L Normal <=31 [facility] Comment on above: Order Comment: Order Date: 11/28/24 Order Info: [id number] - CMP Performed By: #### L 100.0500, L502.0250, [id number] #### [facility] [address] [place], [address] Bilirubin [Mass/Vol] 0.42 mg/dL Normal 0.00-1.30 [facility] Comment on above: Order Comment: Order Date: 11/28/24 Order Info: [id number] - CMP Performed By: #### L 100.0500, L502.0250, [id number] #### [facility] [address] [place], [address] BUN/CRE 16.0 RATIO Normal 10-20 [facility] Comment on above: Order Comment: Order Date: 11/28/24 Order Info: [id number] - CMP Performed By: #### L 100.0500, L502.0250, L500.4050 #### [facility] [address] [place], [address] Calcium [Mass/Vol] 9.0 mg/dL Normal 7.6-11.0 [facility] Comment on above: Order Comment: Order Date: 11/28/24 Order Info: 0786-1 - CMP Performed By: #### L 100.0500, L502.0250, [id number] #### [facility] [address] [place], [address] Chloride [Moles/Vol] 108 mmol/L Normal 98-108 [facility] Comment on above: Order Comment: Order Date: 11/28/24 Order Info: [id number] - CMP Performed By: #### L 100.0500, L502.0250, [id number] #### [facility] [address] [place], [address] CO2 [Moles/Vol] 21.2 mmol/L Normal 21.0-32.0 [facility] Comment on above: Order Comment: Order Date: 11/28/24 Order Info: [id number] - CMP Performed By: #### L 100.0500, L502.0250, [id number] #### [facility] [address] [place], [address] Creatinine [Mass/Vol] 0.98 mg/dL Normal 0.70-1.20 [facility] Comment on above: Order Comment: Order Date: 11/28/24 Order Info: [id number] - CMP Performed By: #### L 100.0500, L502.0250, [id number] #### [facility] [address] [place], [address] GAP 13 Normal 5-15 [facility] Comment on above: Order Comment: Order Date: 11/28/24 Order Info: [id number] - CMP Performed By: #### L 100.0500, L502.0250, L500.4050 #### [facility] [address] [place], [address] GFR/1.73 sq M.predicted among non-blacks MDRD (S/P/Bld) [Vol rate/Area] 64 mL/min/{1.73_m2} Normal >60 [facility] Comment on above: Order Comment: Order Date: 11/28/24 Order Info: [id number] - CMP Result Comment: mL/m in/1.73m2 CKD-EPI Creatinine Equation (2020) Performed By: #### L 100.0500, L502.0250, L500.4050 #### [facility] [address] [place], [address] Globulin (S) [Mass/Vol] 3.1 g/dL Normal 2.2-4.2 [facility] Comment on above: Order Comment: Order Date: 11/28/24 Order Info: [id number] - CMP Performed By: #### L 100.0500, L502.0250, L500.4050 #### [facility] [address] [place], [address] Glucose [Mass/Vol] 95 mg/dL Normal 70-99 [facility] Comment on above: Order Comment: Order Date: 11/28/24 Order Info: 0786-1 - CMP Performed By: #### L 100.0500, L502.0250, L500.4050 #### [facility] [address] [place], [address] Potassium [Moles/Vol] 3.4 mmol/L Normal 3.3-5.1 [facility] Comment on above: Order Comment: Order Date: 11/28/24 Order Info: 0786-1 - CMP Performed By: #### L 100.0500, L502.0250, L500.4050 #### [facility] [address] [place], [address] Sodium [Moles/Vol] 142 mmol/L Normal 133-145 [facility] Comment on above: Order Comment: Order Date: 11/28/24 Order Info: 0786-1 - CMP Performed By: #### L 100.0500, L502.0250, L500.4050 #### [facility] [address] [place], [address] T PROT 7.3 g/dL Normal 5.9-8.4 [facility] Comment on above: Order Comment: Order Date: 11/28/24 Order Info: 0786-1 - CMP Performed By: #### L 100.0500, L502.0250, L500.4050 #### [facility] [address] [place], [address] Urea nitrogen [Mass/Vol] 16 mg/dL Normal 4-19 [facility] Comment on above: Order Comment: Order Date: 11/28/24 Order Info: 0786-1 - CMP Performed By: #### L 100.0500, L502.0250, L500.4050 #### [facility] [address] [place], [address] Creatinine Unsp time (U) [Ma ss/Vol]Ordered By: Nasim Wolff on 11-28-2024 Creatinine (U) [Mass/Vol] 61.10 mg/dL 28-217 [facility] Erythrocyte distribution wid th ratioOrdered By: Nasim Wolff on 11-28-2024 Erythrocyte distribution width (RBC) [Ratio] 13.2 % 11.6-14.6 [facility] Erythrocyte distribution wid th standard deviationOrdered By: Nasim Wolff on 11-28-2024 Erythrocyte distribution width (RBC) [Entitic vol] 44.0 fL High 35.1-43.9 [facility] GFR/1.73 sq M.predicted armando g non-blacks MDRD (S/P/Bld) [Vol rate/Area]Ordered By: Nasim Wolff on 11-28-2024 Estimated GFR (MDRD) Non-Af Amer 64 >60 [facility] Comment on above: mL/min/1.73m2 CKD-EP I Creatinine Equation (2020) Hematocrit Auto (Bld) [Volum e fraction]Ordered By: Nasim Wolff on 11-28-2024 Hematocrit (Bld) [Volume fraction] 43.3 % 37-47 [facility] Hemoglobin measurementOrdere d By: Nasim Wolff on 11-28-2024 Hemoglobin (Bld) [Mass/Vol] 14.6 g/dL 12.0-15.0 [facility] L506.1001on 11-28-2024 Vitamin D 25-OH 32.6 ng/mL Normal 30-100 [facility] Comment on above: Order Comment: Order Date: 11/28/24 Order Info: [id number] - [facility] Result Comment: Gely min D Status Deficiency: <20 ng/mL (50nmol/L) Insufficiency: 20-30 ng/mL (50-75 nmol/L) Sufficiency: 30-100 ng/mL (75-250 nmol/L) Toxicity: >100 ng/mL (>250 nmol/L) Performed By: #### L 506.1001 #### [facility] [place] [address] [place], [address] Laboratory - Chemistry and C hemistry - challengeOrdered By: Nasim Wolff on 11-28-2024 AST [Catalytic activity/Vol] 25 U/L <32 [facility] MCV (mean corpuscular volume ) determinationOrdered By: Nasim Wolff on 11-28-2024 MCV (RBC) [Entitic vol] 91.0 fL 81-99 [facility] Mean corpuscular hemoglobin (MCH) determinationOrdered By: Nasim Wolff on 11-28-2024 MCH (RBC) [Entitic mass] 30.7 pg 27.0-32.0 [facility] Mean corpuscular hemoglobin concentration (MCHC) determinationOrdered By: Nasim Wolff on 11-28-2024 MCHC (RBC) [Mass/Vol] 33.7 g/dL 32-36 [facility] Mean platelet volume determi nationOrdered By: Nasim Wolff on 11-28-2024 Platelet mean volume (Bld) [Entitic vol] 12.0 fL 6.2-12.0 [facility] Microalb:Creat Ratio,Random URon 11-28-2024 Creatinine [Mass/Vol] 61.10 mg/dL Normal 28-217 [facility] Comment on above: Order Comment: Order Date: 11/28/24 Order Info: [id number] - [facility] Performed By: #### L 100.0500, L502.0250, L500.4050 #### [facility] [address] [place], [address] MALB:CREAT UNABLE TO CALCULATE Normal [facility] Comment on above: Order Comment: Order Date: 11/28/24 Order Info: [id number] - [facility] Performed By: #### L 100.0500, L502.0250, L500.4050 #### [facility] [address] [place], [address] MICROALBUMIN,UR < 12.0 Normal NO RANGE EST. [facility] Comment on above: Order Comment: Order Date: 11/28/24 Order Info: [id number] - [facility] Performed By: #### L 100.0500, L502.0250, L500.4050 #### [facility] [address] [place], [address] Microalbumin/creat ratio urO rdered By: Nasim Wolff on 11-28-2024 Urine Microalbumin/Creatinine Ratio UNABLE TO CALCULATE mg/g CRE [facility] PTH intactOrdered By: Nasim mack on 11-28-2024 Parathyroid Hormone (Intact) 47 pg/mL [facility] PTHINon 11-28-2024 PTH 47 pg/mL Normal [facility] Comment on above: Order Comment: Order Date: 11/28/24 Order Info: [id number] - PTHIN Performed By: #### L 509.1000 #### [facility] [address] [place], [address] Platelet countOrdered By: Ravin Wolff on 11-28-2024 Platelets (Bld) [#/Vol] 267 10*3/uL 150-450 [facility] Potassium (Unsp spec) [Mass/ Vol]Ordered By: Nasim Wolff on 11-28-2024 Potassium [Moles/Vol] 3.4 mmol/L 3.3-5.1 [facility] RBC Auto (Bld) [#/Vol]Ordere d By: Nasim Wolff on 11-28-2024 RBC (Bld) [#/Vol] 4.76 10*6/uL 4.2-5.4 [facility] Serum creatinine measurement (mass/volume)Ordered By: Nasim Wolff on 11-28-2024 Creatinine [Mass/Vol] 0.98 mg/dL 0.70-1.20 [facility] Serum globulin measurementOr dered By: Nasim Wolff on 11-28-2024 Globulin (S) [Mass/Vol] 3.1 g/dL 2.2-4.2 [facility] Serum glucose measurement (m ass/volume)Ordered By: Nasim Wolff on 11-28-2024 Glucose [Mass/Vol] 95 mg/dL 70-99 [facility] Serum or plasma alanine lane otransferase (ALT) measurementOrdered By: Nasim Wolff on 11-28-2024 ALT [Catalytic activity/Vol] 32 U/L <35 [facility] Serum or plasma albumin juan urement (mass/volume)Ordered By: Nasim Wolff on 11-28-2024 Albumin [Mass/Vol] 4.2 g/dL 3.4-4.8 [facility] Serum or plasma albumin/glob ulin mass ratioOrdered By: Nasim Wolff on 11-28-2024 Albumin/Globulin [Mass ratio] 1.3 {ratio} 0.9-2.4 [facility] Serum or plasma alkaline olimpia sphatase measurementOrdered By: Nasim Wolff on 11-28-2024 ALP [Catalytic activity/Vol] 85 U/L 35-104 [facility] Serum or plasma calcium juan urement (mass/volume)Ordered By: Nasim Wolff on 11-28-2024 Calcium [Mass/Vol] 9.0 mg/dL 7.6-11.0 [facility] Serum or plasma urea nitroge n measurement (mass/volume)Ordered By: Nasim Wolff on 11-28-2024 Urea nitrogen [Mass/Vol] 16 mg/dL 4-19 [facility] Sodium levelOrdered By: Nasim Wolff on 11-28-2024 Sodium [Moles/Vol] 142 mmol/L 133-145 [facility] Total proteinOrdered By: Alyssa Wolff on 11-28-2024 Protein [Mass/Vol] 7.3 g/dL 5.9-8.4 [facility] Vitamin D, 25-hydroxyOrdered By: Nasim Wolff on 11-28-2024 Vitamin D 25-Hydroxy 32.6 ng/mL 30-100 [facility] Comment on above: Vitamin D StatusDefi ciency: <20 ng/mL (50nmol/L)Insufficiency: 20-30 ng/mL (50-75 nmol/L)Sufficiency: 30-100 ng/mL (75-250 nmol/L)Toxicity: >100 ng/mL (>250 nmol/L) White blood cell (WBC) count Ordered By: Nasim Wolff on 11-28-2024 WBC (Bld) [#/Vol] 7.5 10*3/uL 4.4-11.0 [facility] Basophil percentageOrdered B y: Nasim Wolff on 01-14-2024 Bilirubin [Mass/Vol] 0.50 mg/dL 0.20-1.00 [facility] Comment on above: For patients on eltr ombopag therapy, use of Dimension [place] TBIL is not recommended. Chloride [Moles/Vol] 111 mmol/L 98-107 [facility] Glucose [Mass/Vol] 98 mg/dL 74-106 [facility] Potassium [Moles/Vol] 3.2 mmol/L 3.5-5.1 [facility] Protein [Mass/Vol] 7.3 g/dL 6.4-8.2 [facility] Sodium [Moles/Vol] 142 mmol/L 136-145 [facility] Laboratory - Chemistry and C hemistry - challengeOrdered By: Nasim Wolff on 01-14-2024 Albumin/Globulin [Mass ratio] 1.0 {ratio} 0.9-2.4 [facility] ALP [Catalytic activity/Vol] 73 U/L 45-117 [facility] ALT [Catalytic activity/Vol] 32 U/L 13-56 [facility] CO2 [Moles/Vol] 26.0 mmol/L 21.0-32.0 [facility] Globulin (S) [Mass/Vol] 3.7 g/dL 2.2-4.2 [facility] Urea nitrogen/Creatinine [Mass ratio] 16.5 mg/mg 10-20 [facility] No Panel InformationOrdered By: Nasim Wolff on 01-14-2024 Estimated GFR (MDRD) Amer 69 mL/min >60 [facility] Comment on above: GFR Calc Estimated GFR (MDRD) Non-Af Amer 57 mL/min >60 [facility] Comment on above: Non- GFR Calc Serum or plasma calcium juan urement (mass/volume)Ordered By: Nasim Wolff on 01-14-2024 Calcium [Mass/Vol] 9.2 mg/dL 8.5-10.1 [facility] Serum or plasma creatinine m easurement (mass/volume)Ordered By: Nasim Wolff on 01-14-2024 Creatinine [Mass/Vol] 1.03 mg/dL 0.55-1.02 [facility] Comment on above: The validity of the calculated GFR & GFRAA in patients over 70 years has not been determined. Clinical correlation is essential. Serum or plasma urea nitroge n measurement (mass/volume)Ordered By: Nasim Wolff on 01-14-2024 Urea nitrogen [Mass/Vol] 17 mg/dL 7-18 [facility] Thin prep Papanicolaou smear with manual screeningOrdered By: Nasim Wolff on 01-14-2024 Thin prep Papanicolaou smear with manual screening 3.6 g/dL 3.2-5.0 [facility] Thin prep Papanicolaou smear with manual screening 19 U/L 15-37 [facility] Thin prep Papanicolaou smear with manual screening 5 5-15 [facility] Basophil percentageOrdered B y: Nasim Wolff on 12-10-2023 Chloride [Moles/Vol] 112 mmol/L 98-107 [facility] Glucose [Mass/Vol] 118 mg/dL 74-106 [facility] Comment on above: Fasting Glucose resu lt from 100 to 125 mg/dL suggests IMPAIRED HOMEOSTASIS per A.D.A. criteria. Potassium [Moles/Vol] 3.5 mmol/L 3.5-5.1 [facility] Sodium [Moles/Vol] 143 mmol/L 136-145 [facility] Laboratory - Chemistry and C hemistry - challengeOrdered By: Nasim Wolff on 12-10-2023 CO2 [Moles/Vol] 25.0 mmol/L 21.0-32.0 [facility] Urea nitrogen/Creatinine [Mass ratio] 17.6 mg/mg 10-20 [facility] No Panel InformationOrdered By: Nasim Wolff on 12-10-2023 Estimated GFR (MDRD) Amer 65 mL/min >60 [facility] Comment on above: GFR Calc Estimated GFR (MDRD) Non-Af Amer 54 mL/min >60 [facility] Comment on above: Non- GFR Calc Serum or plasma calcium juan urement (mass/volume)Ordered By: Nasim Wolff on 12-10-2023 Calcium [Mass/Vol] 9.0 mg/dL 8.5-10.1 [facility] Serum or plasma creatinine m easurement (mass/volume)Ordered By: Nasim Wolff on 12-10-2023 Creatinine [Mass/Vol] 1.08 mg/dL 0.55-1.02 [facility] Comment on above: The validity of the calculated GFR & GFRAA in patients over 70 years has not been determined. Clinical correlation is essential. Serum or plasma urea nitroge n measurement (mass/volume)Ordered By: Nasim Wolff on 12-10-2023 Urea nitrogen [Mass/Vol] 19 mg/dL 7-18 [facility] Thin prep Papanicolaou smear with manual screeningOrdered By: Nasim Wolff on 12-10-2023 Thin prep Papanicolaou smear with manual screening 6 5-15 [facility] Basophil percentageOrdered B y: Nasim Wolff on 12-03-2023 Bilirubin [Mass/Vol] 0.50 mg/dL 0.20-1.00 [facility] Comment on above: For patients on eltr ombopag therapy, use of Dimension [place] TBIL is not recommended. Chloride [Moles/Vol] 111 mmol/L 98-107 [facility] Glucose [Mass/Vol] 100 mg/dL 74-106 [facility] Comment on above: Fasting Glucose resu lt from 100 to 125 mg/dL suggests IMPAIRED HOMEOSTASIS per A.D.A. criteria. Potassium [Moles/Vol] 3.0 mmol/L 3.5-5.1 [facility] Protein [Mass/Vol] 7.4 g/dL 6.4-8.2 [facility] Sodium [Moles/Vol] 142 mmol/L 136-145 [facility] Laboratory - Chemistry and C hemistry - challengeOrdered By: Nasim Wolff on 12-03-2023 Albumin/Globulin [Mass ratio] 0.9 {ratio} 0.9-2.4 [facility] ALP [Catalytic activity/Vol] 79 U/L 45-117 [facility] ALT [Catalytic activity/Vol] 36 U/L 13-56 [facility] CO2 [Moles/Vol] 23.0 mmol/L 21.0-32.0 [facility] Globulin (S) [Mass/Vol] 3.8 g/dL 2.2-4.2 [facility] Urea nitrogen/Creatinine [Mass ratio] 15.6 mg/mg 10-20 [facility] No Panel InformationOrdered By: Nasim Wolff on 12-03-2023 Estimated GFR (MDRD) Amer 81 mL/min >60 [facility] Comment on above: GFR Calc Estimated GFR (MDRD) Non-Af Amer 67 mL/min >60 [facility] Comment on above: Non- GFR Calc Parathyroid Hormone (Intact) 69.1 pg/mL 18.4-80.1 [facility] Urine Microalbumin/Creatinine Ratio 12.2 mg/g CRE <30 [facility] Vitamin D 25-Hydroxy 52.9 ng/mL [facility] Comment on above: Vitamin D 25(OH) Sta tus Range Deficiency <20 ng/mL (50nmol/L) Insufficiency 20 - 30 ng/mL (50 - 75 nmol/L) Sufficiency 30 - 100 ng/mL (75 - 250 nmol/L) Toxicity >100 ng/mL (>250 nmol/L) Serum or plasma calcium juan urement (mass/volume)Ordered By: Nasim Wolff on 12-03-2023 Calcium [Mass/Vol] 8.8 mg/dL 8.5-10.1 [facility] Serum or plasma creatinine m easurement (mass/volume)Ordered By: Nasim Wolff on 12-03-2023 Creatinine [Mass/Vol] 0.90 mg/dL 0.55-1.02 [facility] Comment on above: The validity of the calculated GFR & GFRAA in patients over 70 years has not been determined. Clinical correlation is essential. Serum or plasma urea nitroge n measurement (mass/volume)Ordered By: Nasim Wolff on 12-03-2023 Urea nitrogen [Mass/Vol] 14 mg/dL 7-18 [facility] Thin prep Papanicolaou smear with manual screeningOrdered By: Nasim Wolff on 12-03-2023 Thin prep Papanicolaou smear with manual screening 3.6 g/dL 3.2-5.0 [facility] Thin prep Papanicolaou smear with manual screening 27 U/L 15-37 [facility] Thin prep Papanicolaou smear with manual screening 8 5-15 [facility] Thin prep Papanicolaou smear with manual screening 9.3 mg/L NO RANGE EST. [facility] Urine creatinine measurement (mass/volume)Ordered By: Nasim Wolff on 12-03-2023 Creatinine (U) [Mass/Vol] 76.70 mg/dL NO RANGE EST. [facility] No Panel InformationOrdered By: Nasim Wloff on 09-09-2023 Vitamin D 25-Hydroxy 76.9 ng/mL [facility] Comment on above: Vitamin D 25(OH) Sta tus Range Deficiency <20 ng/mL (50nmol/L) Insufficiency 20 - 30 ng/mL (50 - 75 nmol/L) Sufficiency 30 - 100 ng/mL (75 - 250 nmol/L) Toxicity >100 ng/mL (>250 nmol/L) Absolute lymphocyte countOrd ered By: Dr. Wolff on 02-19-2023 Lymphocytes Auto (Unsp spec) [#/Vol] 3.82 10*3/uL 0.83-4.51 [facility] Basophil percentageOrdered B y: Dr. Wolff on 02-19-2023 Basophils/100 WBC (Bld) 0.8 % 0-1 [facility] Bilirubin [Mass/Vol] 0.40 mg/dL 0.20-1.00 [facility] Comment on above: For patients on eltr ombopag therapy, use of Dimension [place] TBIL is not recommended. Chloride [Moles/Vol] 108 mmol/L 98-107 [facility] Eosinophils/100 WBC (Bld) 3.0 % 0-5 [facility] Glucose [Mass/Vol] 95 mg/dL 74-106 [facility] Neutrophils (Bld) [#/Vol] 3.0 10*3/uL 2.0-7.7 [facility] Neutrophils/100 WBC (Bld) 38.7 % 47-70 [facility] Potassium [Moles/Vol] 3.9 mmol/L 3.5-5.1 [facility] Protein [Mass/Vol] 7.6 g/dL 6.4-8.2 [facility] Sodium [Moles/Vol] 139 mmol/L 136-145 [facility] WBC (Bld) [#/Vol] 7.6 10*3/uL 4.4-11.0 [facility] Blood erythrocytes count (nu mber/volume)Ordered By: Dr. Wolff on 02-19-2023 RBC (Bld) [#/Vol] 4.83 10*6/uL 4.2-5.4 [facility] Blood hemoglobin measurement (mass/volume)Ordered By: Dr. Wolff on 02-19-2023 Hemoglobin (Bld) [Mass/Vol] 14.4 g/dL 12.0-15.0 [facility] Blood lymphocytes/100 leukoc ytesOrdered By: Dr. Wolff on 02-19-2023 Lymphocytes/100 WBC (Bld) 50.1 % 19-41 [facility] Blood monocytes/100 leukocyt esOrdered By: Dr. Wolff on 02-19-2023 Monocytes/100 WBC (Bld) 7.1 % 0-10 [facility] Blood platelet mean volumeOr dered By: Dr. Wolff on 02-19-2023 Platelet mean volume (Bld) [Entitic vol] 12.1 fL 6.2-12.0 [facility] Determination of erythrocyte mean corpuscular volume (MCV)Ordered By: Dr. Wolff on 02-19-2023 MCV (RBC) [Entitic vol] 92.1 fL 81-99 [facility] Hematocrit Auto (Bld) [Volum e fraction]Ordered By: Dr. Wolff on 02-19-2023 Hematocrit (Bld) [Volume fraction] 44.5 % 37-47 [facility] Laboratory - Chemistry and C hemistry - challengeOrdered By: Dr. Wolff on 02-19-2023 ALP [Catalytic activity/Vol] 82 U/L 45-117 [facility] ALT [Catalytic activity/Vol] 43 U/L 13-56 [facility] CO2 [Moles/Vol] 22.0 mmol/L 21.0-32.0 [facility] Globulin (S) [Mass/Vol] 4.2 g/dL 2.2-4.2 [facility] Urea nitrogen/Creatinine [Mass ratio] 23.2 mg/mg 10-20 [facility] Laboratory - Hematology and Cell countsOrdered By: Dr. Wolff on 02-19-2023 Erythrocyte distribution width (RBC) [Entitic vol] 45.1 fL 35.1-43.9 [facility] Erythrocyte distribution width (RBC) [Ratio] 13.2 % 11.6-14.6 [facility] Immature granulocytes/100 WBC (Bld) 0.300 % 0.0-0.9 [facility] Comment on above: IG% - Immature Granu locytes (promyelocytes, myelocytes and metamyelocytes) > 1% indicates that a LEFT SHIFT is Present. MCH (RBC) [Entitic mass] 29.8 pg 27.0-32.0 [facility] Nucleated RBC/100 WBC (Bld) [Ratio] 0 % 0-5 [facility] Auto (RBC) [Mass/Vol]Or dered By: Dr. Wolff on 02-19-2023 MCHC (RBC) [Mass/Vol] 32.4 g/dL 32-36 [facility] No Panel InformationOrdered By: Dr. Wolff on 02-19-2023 Estimated GFR (MDRD) Amer 90 mL/min >60 [facility] Comment on above: GFR Calc Estimated GFR (MDRD) Non-Af Amer 74 mL/min >60 [facility] Comment on above: Non- GFR Calc Parathyroid Hormone (Intact) 60.9 pg/mL 18.4-80.1 [facility] Thyroid Stimulating Hormone (TSH) 2.18 uIU/mL 0.358-3.74 [facility] Urine Microalbumin/Creatinine Ratio 19.6 mg/g CRE <30 [facility] Vitamin D 25-Hydroxy 123.6 ng/mL [facility] Comment on above: Vitamin D 25(OH) Sta tus Range Deficiency <20 ng/mL (50nmol/L) Insufficiency 20 - 30 ng/mL (50 - 75 nmol/L) Sufficiency 30 - 100 ng/mL (75 - 250 nmol/L) Toxicity >100 ng/mL (>250 nmol/L)Evidence suggests that patients undergoing fluorescein dye angiography can retain small amounts of fluorescein in the body for up to 48 to 72 hours post-treatment. In the cases of patients with renal insufficiency, retention could be much longer. Samples containing fluorescein can produce falsely elevated values when tested with the [employer] Centaur Vitamin D assay. With fluorescein interference, observed Vitamin D values can be as high as >150 ng/mL (>375 nmol/L). Samples should be resubmitted post fluorescein clearance to ensure there is no interference with Vitamin D test results. Platelets bldOrdered By: Dr. Wolff on 02-19-2023 Platelets (Bld) [#/Vol] 255 10*3/uL 150-450 [facility] Serum or plasma albumin juan urement (mass/volume)Ordered By: Dr. Wolff on 02-19-2023 Albumin [Mass/Vol] 3.4 g/dL 3.2-5.0 [facility] Serum or plasma albumin/glob ulin mass ratioOrdered By: Dr. Wolff on 02-19-2023 Albumin/Globulin [Mass ratio] 0.8 {ratio} 0.9-2.4 [facility] Serum or plasma calcium juan urement (mass/volume)Ordered By: Dr. Wolff on 02-19-2023 Calcium [Mass/Vol] 9.0 mg/dL 8.5-10.1 [facility] Serum or plasma creatinine m easurement (mass/volume)Ordered By: Dr. Wolff on 02-19-2023 Creatinine [Mass/Vol] 0.82 mg/dL 0.55-1.02 [facility] Comment on above: The validity of the calculated GFR & GFRAA in patients over 70 years has not been determined. Clinical correlation is essential. Serum or plasma urea nitroge n measurement (mass/volume)Ordered By: Dr. Wolff on 02-19-2023 Urea nitrogen [Mass/Vol] 19 mg/dL 7-18 [facility] Thin prep Papanicolaou smear with manual screeningOrdered By: Dr. Wolff on 02-19-2023 Thin prep Papanicolaou smear with manual screening 27 U/L 15-37 [facility] Thin prep Papanicolaou smear with manual screening 9 5-15 [facility] Thin prep Papanicolaou smear with manual screening 9.5 mg/L NO RANGE EST. [facility] Urine creatinine measurement (mass/volume)Ordered By: Dr. Wolff on 02-19-2023 Creatinine (U) [Mass/Vol] 48.50 mg/dL NO RANGE EST. [facility] Absolute lymphocyte counton 07-01-2022 Lymphocytes Auto (Unsp spec) [#/Vol] 3.47 10*3/uL 0.83-4.51 [facility] Work Phone: Basophil percentageon 2021 Basophils/100 WBC (Bld) 0.7 % 0-1 [facility] Work Phone: Bilirubin [Mass/Vol] 0.70 mg/dL 0.20-1.00 [facility] Work Phone: Comment on above: For patients on eltr ombopag therapy, use of Dimension [place] TBIL is not recommended. Chloride [Moles/Vol] 107 mmol/L 98-107 [facility] Work Phone: [phone] Cholesterol [Mass/Vol] 232 mg/dL <200 [facility] Work Phone: Comment on above: <200 mg/dL Desirable 200-240 mg/dL Borderline >240 mg/dL High Risk Eosinophils/100 WBC (Bld) 3.2 % 0-5 [facility] Work Phone: Glucose [Mass/Vol] 96 mg/dL 74-106 [facility] Work Phone: [phone] Neutrophils (Bld) [#/Vol] 3.0 10*3/uL 2.0-7.7 [facility] Work Phone: [phone] Neutrophils/100 WBC (Bld) 41.4 % 47-70 [facility] Work Phone: [phone] Potassium [Moles/Vol] 3.7 mmol/L 3.5-5.1 [facility] Work Phone: [phone] Protein [Mass/Vol] 7.2 g/dL 6.4-8.2 [facility] Work Phone: [phone] Sodium [Moles/Vol] 139 mmol/L 136-145 [facility] Work Phone: [phone] Triglyceride [Mass/Vol] 105 mg/dL <199 [facility] Work Phone: [phone] Comment on above: The drugs N-Acetylcy steine and Metamizole may falsely depress this assay.Serum Triglycerides Reference Interval Normal <150 mg/dL Borderline high 150 - 199 mg/dL High 200 - 499 mg/dL Very High > or = 500 mg/dL WBC (Bld) [#/Vol] 7.3 10*3/uL 4.4-11.0 [facility] Work Phone: [phone] Blood erythrocytes count (nu mber/volume)on 07-01-2022 RBC (Bld) [#/Vol] 4.79 10*6/uL 4.2-5.4 [facility] Work Phone: Blood hemoglobin measurement (mass/volume)on 07-01-2022 Hemoglobin (Bld) [Mass/Vol] 14.3 g/dL 12.0-15.0 [facility] Work Phone: Blood lymphocytes/100 leukoc yteson 07-01-2022 Lymphocytes/100 WBC (Bld) 47.6 % 19-41 [facility] Work Phone: Blood monocytes/100 leukocyt eson 07-01-2022 Monocytes/100 WBC (Bld) 7.0 % 0-10 [facility] Work Phone: Blood platelet mean volumeon 07-01-2022 Platelet mean volume (Bld) [Entitic vol] 12.1 fL 6.2-12.0 [facility] Work Phone: Determination of erythrocyte mean corpuscular volume (MCV)on 07-01-2022 MCV (RBC) [Entitic vol] 91.0 fL 81-99 [facility] Work Phone: Hematocrit Auto (Bld) [Volum e fraction]on 07-01-2022 Hematocrit (Bld) [Volume fraction] 43.6 % 37-47 [facility] Work Phone: Laboratory - Chemistry and C hemistry - challengeon 07-01-2022 ALP [Catalytic activity/Vol] 86 U/L 45-117 [facility] Work Phone: ALT [Catalytic activity/Vol] 48 U/L 13-56 [facility] Work Phone: CO2 [Moles/Vol] 26.0 mmol/L 21.0-32.0 [facility] Work Phone: Globulin (S) [Mass/Vol] 3.7 g/dL 2.2-4.2 [facility] Work Phone: Urea nitrogen/Creatinine [Mass ratio] 20.6 mg/mg 10-20 [facility] Work Phone: Laboratory - Hematology and Cell countson 07-01-2022 Erythrocyte distribution width (RBC) [Entitic vol] 43.1 fL 35.1-43.9 [facility] Work Phone: Erythrocyte distribution width (RBC) [Ratio] 13.0 % 11.6-14.6 [facility] Work Phone: Immature granulocytes/100 WBC (Bld) 0.100 % 0.0-0.9 [facility] Work Phone: Comment on above: IG% - Immature Granu locytes (promyelocytes, myelocytes and metamyelocytes) > 1% indicates that a LEFT SHIFT is Present. MCH (RBC) [Entitic mass] 29.9 pg 27.0-32.0 [facility] Work Phone: Nucleated RBC/100 WBC (Bld) [Ratio] 0 % 0-5 [facility] Work Phone: MCHC Auto (RBC) [Mass/Vol]on 07-01-2022 MCHC (RBC) [Mass/Vol] 32.8 g/dL 32-36 [facility] Work Phone: No Panel Informationon 07-01 Estimated GFR (MDRD) Amer 96 mL/min >60 [facility] Work Phone: Comment on above: GFR Calc Estimated GFR (MDRD) Non-Af Amer 79 mL/min >60 [facility] Work Phone: Comment on above: Non- GFR Calc Parathyroid Hormone (Intact) 70.7 pg/mL 18.4-80.1 [facility] Work Phone: Vitamin D 25-Hydroxy 61.3 ng/mL [facility] Work Phone: Comment on above: Vitamin D 25(OH) Sta tus Range Deficiency <20 ng/mL (50nmol/L) Insufficiency 20 - 30 ng/mL (50 - 75 nmol/L) Sufficiency 30 - 100 ng/mL (75 - 250 nmol/L) Toxicity >100 ng/mL (>250 nmol/L) Platelets bldon 07-01-2022 Platelets (Bld) [#/Vol] 255 10*3/uL 150-450 [facility] Work Phone: Serum or plasma albumin juan urement (mass/volume)on 07-01-2022 Albumin [Mass/Vol] 3.5 g/dL 3.2-5.0 [facility] Work Phone: Serum or plasma albumin/glob ulin mass ratioon 07-01-2022 Albumin/Globulin [Mass ratio] 0.9 {ratio} 0.9-2.4 [facility] Work Phone: Serum or plasma calcium juan urement (mass/volume)on 07-01-2022 Calcium [Mass/Vol] 8.9 mg/dL 8.5-10.1 [facility] Work Phone: Serum or plasma cholesterol in HDL measurement (mass/volume)on 07-01-2022 Cholesterol in HDL [Mass/Vol] 61 mg/dL >40 [facility] Work Phone: Comment on above: The drugs N-Acetylcy steine and Metamizole may falsely depress this assay. Reference Range HDL <40 mg/dL Low HDL Cholesterol HDL >or= 60 mg/dL High HDL Cholesterol Serum or plasma cholesterol in VLDL measurement (mass/volume)on 07-01-2022 Cholesterol in VLDL [Mass/Vol] 21 mg/dL 5-40 [facility] Work Phone: Serum or plasma creatinine m easurement (mass/volume)on 07-01-2022 Creatinine [Mass/Vol] 0.78 mg/dL 0.55-1.02 [facility] Work Phone: Comment on above: The validity of the calculated GFR & GFRAA in patients over 70 years has not been determined. Clinical correlation is essential. Serum or plasma low density lipoprotein (LDL) cholesterol measurement (mass/volume)on 07-01-2022 Cholesterol in LDL [Mass/Vol] 150 mg/dL 0-130 [facility] Work Phone: Serum or plasma urea nitroge n measurement (mass/volume)on 07-01-2022 Urea nitrogen [Mass/Vol] 16 mg/dL 7-18 [facility] Work Phone: Thin prep Papanicolaou smear with manual screeningon 07-01-2022 Thin prep Papanicolaou smear with manual screening 23 U/L 15-37 [facility] Work Phone: Thin prep Papanicolaou smear with manual screening 6 5-15 [facility] Work Phone: Vital Signs Date Time Vital Sign Value Performing Clinician Faci lity 05-10-2025 14:47-0400 Body height 157.[address] Nasim Wolff MD Work Phone: [facility] 05-10-2025 14:47-0400 Body mass index (BMI) [Ratio] 33.3 kg/m2 Dr. Nasim Wolff MD Work Phone: [facility] 05-10-2025 14:47-0400 Body weight 82.[address] Nasim Wolff MD Work Phone: [facility] 05-10-2025 14:47-0400 Diastolic blood pressure 90 mm[Hg] Dr. Nasim Wolff MD Work Phone: [facility] 05-10-2025 14:47-0400 Systolic blood pressure 130 mm[Hg] Dr. Nasim Wolff MD Work Phone: [facility] 12-23-2023 11:19-0400 Body height 157.[address] Nasim Wolff Work Phone: [facility] 12-23-2023 11:19-0400 Body mass index (BMI) [Ratio] 33.3 kg/m2 Dr. Nasim Wolff Work Phone: [facility] 12-23-2023 11:19-0400 Body weight 82.[address] Nasim Wolff Work Phone: [facility] Encounters Encounter Date Encounter Type Care Provider Facility Start: 05-10-2025 End: 05-10-[address] Nasim Wolff MD Work Phone: -[facility] Start: 05-10-2025 End: 05-10-2025 Patient encounter procedure Nicol Pastrana NP-[place] [facility] Work Phone: Start: 04-23-2025 End: 04-23-[address] Nasim Wolff MD Work Phone: -[facility] Start: 04-23-2025 End: 04-23-[address] Nasim Wolff MD -Laboratory [facility] Start: 04-23-2025 End: 04-23-2025 ambulatory Nasim Wolff Facility:[facility] Start: 11-28-2024 End: 11-28-[address] Nasim Wolff MD Work Phone: [facility] Work Phone: Start: 11-28-2024 End: 11-28-[address] Nasim Wolff MD -[facility] Start: 11-28-2024 End: 11-28-2024 ambulatory Nasim Wolff Facility:[facility] Start: 01-14-2024 End: 01-14-[address] Nasim Wolff Work Phone: [facility] Work Phone: Start: 01-14-2024 End: 01-14-[address] Nasim Wolff Work Phone: [facility] Work Phone: Start: 12-23-2023 Non-patient / Non-visit Dr. Ravin Wolff Work Phone: [facility] Work Phone: Start: 12-10-2023 End: 12-10-2023 ambulatory [facility] Work Phone: Start: 12-10-2023 End: 12-10-2023 Patient encounter procedure [facility] Work Phone: Start: 12-03-2023 End: 12-03-2023 ambulatory [facility] Work Phone: Start: 12-03-2023 End: 12-03-2023 Patient encounter procedure [facility] Start: 09-09-2023 End: 09-09-2023 ambulatory [facility] Work Phone: Start: 09-09-2023 End: 09-09-2023 Patient encounter procedure [facility] Start: 02-19-2023 End: 02-19-2023 ambulatory [facility] Work Phone: Start: 02-19-2023 End: 02-19-2023 Patient encounter procedure [facility] Start: 07-01-2022 End: 07-01-2022 ambulatory [facility] Work Phone: Start: 07-01-2022 End: 07-01-2022 Patient encounter procedure [facility] Procedures Date Procedure Procedure Detail Performing Clinician Start: 04-23-[address] Nasim Wolff MD Work Phone: Plan of Treatment Date Care Activity Detail Author Colonoscopy [facility] Payers Date Payer Category Payer Medicare [id number] 2024 Self-pay [id number] 2015 Unknown [id number] Unknown [id number] Unknown [id number] Unknown [id number] Social History Date Type Detail Facility Start: 07-29-2018 End: 12-23-2023 Tobacco smoking status NHIS Unknown if ever smoked [facility] Start: 07-29-2018 Non-smoker [facility] Start: 1955 Sex Assigned At Female [facility] Start: 02-16-2024 End: 05-10-2025 Tobacco smoking status NHIS Never smoked tobacco (finding) [facility] Start: 12-07-2024 Sex Female (finding) [facility] Medical Equipment Procedure Code Equipment Code Equipment Origin al Text Equipment Identifier Dates STENT,URETERAL PIGTAIL [id number] FDA Start: 07-29-2018 STENT,URETERAL PIGTAIL [id number] FDA Start: 07-29-2018 STENT,URETERAL PIGTAIL [id number] FDA Start: 07-29-2018 STENT,URETERAL PIGTAIL [id number] FDA Start: 07-29-2018 STENT,URETERAL PIGTAIL [id number] FDA Start: 07-29-2018 STENT,URETERAL PIGTAIL [id number] FDA Start: 07-29-2018 STENT,URETERAL PIGTAIL [id number] FDA Start: 07-29-2018 STENT,URETERAL PIGTAIL [id number] FDA Start: 07-29-2018 STENT,URETERAL PIGTAIL [id number] FDA Start: 07-29-2018 Progress note 05-10-2025 Note Date & Type Note Facility 05-10-2025 Progress note [facility] Progress note 05-10-2025 Note Date & Type Note Facility 05-10-2025 Progress note Note Date/Time May 10, 2025 3:07pm [facility] [address], [address] [place] [address] OFFICE VISIT Date of Service: 05/10/25 MR#: [id number] Acct: [id number] Name: ROSITA GRANT Rep #: [id number] : 1955 Provider: PERICO Pastrana Age/Sex: 69/F Location: [facility] [place] Status: Signed Intake Vital Signs 02/21/24 08:16 05/08/25 09:36 05/10/25 14:47 Height 5 ft 2 in 5 ft 2 in 5 ft 2 in Weight: 182 lb 5 oz BMI 33.3 BP 130/90 H Intake Visit Reasons: New Pt, PMB, EMB Chief Complaint: EMB- PMB Field Geologist Required: No Is patient in pain?: No Allergies Sulfa (Sulfonamide Antibiotics) Allergy (Verified 05/10/25 14:45) Rash Medications ?Medication ?Instructions ?Recorded ?Confirmed ?Type acetazolamide 500 mg 500 mg PO DAILY 12/23/23 History capsule,extended release amlodipine 2.5 mg tablet 2.5 mg PO DAILY 12/23/23 History magnesium oxide 400 mg PO DAILY 12/23/23 History Is last menstrual period known: No Post menopausal: Yes Patient : No : No PFSH PFSH Medical History Wears glasses Non-smoker Calculus of kidney Parathyroid abnormality HTN (hypertension) Surgical History History of lithotripsy (~2018) History of wisdom tooth extraction Hx of tonsillectomy History of parathyroidectomy Family History Mother Breast cancer Father Brain aneurysm Social History (Updated 05/10/25 @ 14:46 by Silva Pineda) household members: spouse current occupational status: employed 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 Date Name GA/Weeks Outcome Route Bth Weight Gen Labor Lgth Anesthesia Del [facility] Provider FOB Unknown michael Unknown Sujey Unknown Renee Unknown Letty Unknown Kathleen HPI New Pt, PMB, EMB Details: ROSITA GRANT is a 69 year old who presents new patient for EMB for postmenopausal bleeding. Started with spotting off and on since late March. Usually light in amount but varies in color brown to red. Recent treatment for UTI at PCP. States feels fine, no cramping or pain. ROS Const Constitutional: Reports system reviewed and no additional complaints, except as documented Eyes Eyes: Reports system reviewed and no additional complaints, except as documented GI GI: Denies abdominal pain or change in bowel habits : Reports as per HPI Exam Const General: cooperative and no acute distress Orientation: oriented x3 General: bladder normal to palpation External Female Exam: normal external appearance and normal appearance of the urethra Urethra: normal appearance of the urethra Speculum Exam - Vagina: normal appearance of the vagina, normal vaginal discharge, no lesions and nontender Speculum Exam - Cervix: normal appearance of the cervix Bimanual Exam- Vagina & Uterus: normal bimanual exam, uterine size normal, bladder normal to palpation, uterine shape normal, uterine mobility normal and non-tender Bimanual Exam- Adnexa, other: normal adnexae, no masses and non-tender Office Procedures Endometrial Biopsy Endometrial Biopsy Test: Yes Not Applicable Consent Signed: Yes Time out checklist: patient, procedure, site marked/identified, positioning of patient, supplies available, allergies confirmed and team agrees on procedure Time out time: 15:00 tenaculum used: No dilator used: No Details: Cervix prepped with betadine and pipelle inserted 8cm into uterus without complication. Specimen obtained and sent to lab for analysis. All instruments removed from vagina without complications. Excellent hemostasis noted. Coding Level of Care Code Attention Tiffanie Diagnoses PMB (postmenopausal bleeding) N95.0 CPT Codes Endometrial Biopsy (61599) Assessment and Plan Assessment and Plan (1) PMB (postmenopausal bleeding): Status: Acute Comment: TVUS 05/17/24; EMB pending Orders: Orders Endometrial Biopsy Today Plan Reviewed S&S infection Will call with EMB and US results. Management dependent on those. 05/10/25 [id number] <Electronically signed by Nicol cali [employer]> Date _ Nicol Pastrana NP [employer] Cosigner Signature: Date (if applicable) CC: ~ [place] [facility] Work Phone: Evaluation note Note Date & Type Note Facility Evaluation note No assessment information availa [facility] Work Phone: Evaluation note Note Date & Type Note Facility Evaluation note Diagnosis Onset Date Resolution PMB (postmenopausal bleeding) acute May 10 2:35pm [facility] Work Phone: Reason for referral (narrative) Note Date & Type Note Facility Reason for referral (narrative) No reason for referral information available [facility] Work Phone: Advance Directives Advance Directive Response Recorded Date/ Time Advance Directives No July 12:17pm Living Will No July 29, 2 018 12:17pm Power of Lead Technologist In Cytogenetics No July 29, 2018 12:17pm Advance Directive Response Recorded Date/ Time Advance Directives No July 11:17am Living Will No July 29, 2 018 11:17am Power of Lead Technologist In Cytogenetics No July 29, 2018 11:17am Advance Directive Response Recorded Date/ Time Advance Directives No July 12:17pm Advance Directive Response Recorded Date/ Time Advance Directives No May 08, 2025 9:36am Chief Complaint and Reason for Visit Chief Complaint EORDER Chief Complaint EORDER Amb Documentation E ORDER Chief Complaint Admit Date New Pt, PMB, EMB May 10, 2025 2: 35pm Reason for Visit Admit Date PMB (postmenopausal bleeding) April 2:35pm Family History Relationship Condition Age at Onset Recorded Date/T raghavendra mother Malignant neoplasm of breast Unknown father Cerebral aneurysm Unknown Summary Purpose Additional Source Comments Goals (unrecognized section and content) Goals may be documented in a n alternate sectionGoals may be documented in an alternate sectionGoals may be documented in an alternate sectionGoals may be documented in an alternate sectionGoals may be documented in an alternate sectionGoals may be documented in an alternate sectionGoals may be documented in an alternate sectionGoals may be documented in an alternate sectionGoals may be documented in an alternate section Care Teams (unrecognized sec tion and content) Team Status: Active Member Role Status Dates Dr. Nasim Wolff MD Family Provider Active Dr. Nasim Wolff MD Primary Care Provider Active Team Status: Inactive Member Role Status Dates Dr. Nasim Wolff MD Primary Care Provider, Pastor huynh Active Team Status: Inactive Member Role Status Dates Dr. Nasim Wolff MD Primary Care Provide r, Attending Provider, Referring Provider Active Team Status: Active Member Role Status Dates Dr. Nasim Wolff MD Primary Care Provider Active [facility] Attending Provider Active Team Status: Inactive Member Role Status Dates Dr. Nasim Wolff MD Primary Care Provider Active Start: November 28, 2024 End: November 28, 2024 Dr. Nasim Wolff MD Attending Provider Active St art: November 28, 2024 End: November 28, 2024 Dr. Nasim Wolff MD Referring Provider Active St art: November 28, 2024 End: November 28, 2024 Team Status: Active Member Role/Relationship Status Dates Dr. Nasim Wolff MD Family Provider Active Dr. Nasim Wolff MD Primary Care Provider Active Team Status: Inactive Member Role/Relationship Status Dates Dr. Nasim Wolff MD Primary Care Provider Active Start: April 23, 2025 End: April 23, 2025 Dr. Nasim Wolff MD Attending Provider Active St art: April 23, 2025 End: April 23, 2025 Team Status: Active Member Role/Relationship Status Dates Dr. Nasim Wolff MD Primary Care Provider Active Team Status: Inactive Member Role/Relationship Status Dates Dr. Nasim Wolff MD Primary Care Provider Active Start: May 10, 2025 End: May 10, 2025 Dr. Nasim Wolff MD Referring Provider Active St art: May 10, 2025 End: May 10, 2025 Nicol Pastrana NP, [employer] Attending Provider Active Start: May 10, 2025 End: May 10, 2025 INFORMATION SOURCE (unrecogn ized section and content) DATE CREATED AUTHOR 04/29/2025 [facility] FOR RECORDS PERTAINING TO PATIENTS WHO ARE OR HAVE BEEN ENROLLED IN A CHEMICAL DEPENDENCY/SUBSTANCEABUSE PROGRAM, SOME INFORMATION MAY BE OMITTED. This clinical summary was aggregated from multiple sources. Caution should be exercised in using it in the provision of clinical care. This summary normalizes information from multiple sources, and as a consequence, information in this document may materially change the coding, format and clinical context of patient data. In addition, data may be omitted in some cases. CLINICAL DECISIONS SHOULD BE BASED ON THE PRIMARY CLINICAL RECORDS. [employer] [facility]. provides no warranty or guarantee of the accuracy or completeness of information in this document.
== END 2025-05-10 23:59 | disposition home or self-care (01) ==
LOC: LABSPEC 16:14
PROVIDERS: PCP Family Medicine; Visit Provider Nurse Practitioner Women's Health
DX: N95.0 Postmenopausal bleeding (principal)
CPT/HCPCS: 88305

== ENCOUNTER → 2025-05-17 | Outpatient (CLI) | payer MEDICARE, SELFPAY ==
--- NOTE | 2025-05-17 07:53 | US_ITS ---
PROCEDURE: TRANSVAGINAL NON- 05/17/2025 REASON FOR EXAM: PMB TECHNIQUE: Procedure Code: USTVAG Modality: US Procedure: TRANSVAGINAL NON- COMPARISON: None FINDINGS: Measurements: Uterus: 8.3 cm x 5.2 cm x 3.8 cm with a volume of 86.64 mL Endometrial Thickness: 17 mm. This is thickened for the postmenopausal state. Right Ovary: Not visualized. Left Ovary: 3 cm x 2.2 cm x 1.2 cm with a volume of 4.1 mL. Uterus: Heterogeneous echotexture suggestive of fibroid change although no focal fibroid is seen. Nabothian cyst. Endometrium: Abnormally thickened for the postmenopausal state. There is a 6 mm x 7 mm x 4 mm cystic air within the endometrium. Right ovary: Not visualized. Left ovary: Normal size and echotexture. Other: No large pelvic mass identified. US/Transvaginal Non- IMPRESSION: Endometrial thickening with small cystic area within the endometrium. Clinical correlation recommended. Fibroid change in the uterus. Reading Location: [place] [id number]
--- OUTSIDE RECORDS SUMMARY | 2025-05-17 08:06 | XMS RPT_ITS | CCD ---
Author Organization [facility] Care Team Providers Care Security Dispatcher Name Role Phone Dr. Nasim Wolff Primary Care Provider [phone] Lisa Cross Attending Provider Unavailable New MORELOS, Dr. Rouse Primary Care Provider New MORELOS, Dr. Rouse Attending Provider New MORELOS, Dr. Rouse Referring Provider New MORELOS, Dr. Rouse Primary Care Provider New MORELOS, Dr. Rouse Attending Provider New MORELOS, Dr. Rouse Referring Provider Zeina TAKE OUT WAITRESS-CNicol Attending Provider [phone] Nasim Wolff Attending Unavailable Nasim Wolff Referring Unavailable Wolff, Nasim Primary Care Unavailable New Nasim Attending Unavailable Wolff, Nasim Primary Care Unavailable Wolff, Nasim Primary Care Unavailable Zeina TAKE OUT WAITRESS, Nicol Attending Unavailable New Nasim Referring Unavailable Wolff, Nasim Primary Care Unavailable [place] TAKE OUT WAITRESS, Nicol Attending Unavailable New, Nasim Primary Care Unavailable Nasim Wolff Attending Unavailable Allergies Allergy Classification Reported Allergen(s) Allergy Type Date of Onset Reaction(s) Facility (10 sources) Sulfonamides (Antibiotic) Allergy to substance 8 Rash [facility] (1 source) Sulfonamides (Antibiotic) Drug allergy (disorder) 5 [facility] Repository Medications Current Medications Medication Drug Class(es) Dates Sig (Normalized) Sig (Original) 12 hr acetaZOLAMIDE 500 mg extended release oral capsule (5 sources) Carbonic Anhydrase Inhibitor Start: 12-23-2023 take 1 capsule by mouth once daily Acetazolamide 500 mg capsule, extended release Active 500 mg PO DAILY December 23, 2023 12:00am amLODIPine 2.5 mg oral tablet (5 sources) Dihydropyridine Calcium Channel Abby Start: 12-23-2023 take 1 tablet by mouth once daily Amlodipine 2.5 mg tablet Active 2.5 mg PO DAILY December 23, 2023 12:00am magnesium oxide 400 mg oral tablet (5 sources) Start: 12-23-2023 take 1 tablet by mouth once daily Magnesium Oxide 400 mg magnesium tablet Active 400 mg PO DAILY December 23, 2023 12:00am Completed/Discontinued Medications Medication Drug Class(es) Dates Sig (Normalized) Sig (Original) acetaminophen 325 mg / HYDROcodone bitartrate 7.5 mg oral tablet (10 sources) Opioid Agonist Start: 03-12-2018 End: 02-16-2024 Hydrocodone-Acetami nophen 1 TABLET tablet Discontinued 1 NMA PO EVERY 4 HOURS NEEDED as needed for Pain 14 0 March 12, 2018 7:26pm February 16, 2024 2:21pm Calculus of right kidney Calculus of kidney Start: 03-12-2018 Hydrocodone-Ac etaminophen Active 1 EACH PO EVERY 4 HOURS NEEDED March 12, 2018 7:26pm cephalexin 500 mg oral capsule (10 sources) Cephalosporin Antibacterial Start: 07-29-2018 End: 08-03-2018 take 1 capsule by mouth three times daily Cephalexin 500 MG capsule Discontinued 500 mg PO THREE TIMES A DAY 15 5 0 July 29, 2018 1:00am August 02, 2018 1:00am August 03, 2018 1:09am post-operative lisinopril 40 mg oral tablet (10 sources) Angiotensin Converting Enzyme Inhibitor Start: 03-12-2018 End: 12-23-2023 take 1 tablet by mouth once daily Lisinopril (Zestril) 40 MG tablet Discontinued 40 mg PO DAILY March 12, 2018 12:00am December 23, 2023 11:15am ondansetron 4 mg disintegrating oral tablet (10 sources) Serotonin-3 Receptor Antagonist Start: 03-12-2018 End: 02-16-2024 take 1 tablet by mouth every eight hours as needed for nausea Ondansetron 4 MG tablet Discontinued 4 mg PO EVERY 8 HOURS NEEDED as needed for Nausea March 12, 2018 12:00am February 16, 2024 2:21pm phenazopyridine hydrochloride 200 mg oral tablet (10 sources) Start: 07-29-2018 End: 08-05-2018 take 1 tablet by mouth three times daily as needed for muscle spasms Phenazopyridine 200 MG tablet Discontinued 200 mg PO 3 TIMES DAILY NEEDED as needed for Bladder Spasms 30 7 0 July 29, 2018 1:00am August 04, 2018 1:00am August 05, 2018 1:12am tamsulosin hydrochloride 0.4 mg oral capsule (10 sources) alpha-Adrenergic Abby Start: 03-12-2018 End: 02-16-2024 take 1 capsule by mouth once daily Tamsulosin 0.4 MG capsule Discontinued 0.4 mg PO DAILY 3 0 March 12, 2018 12:00am February 16, 2024 2:21pm Problems Problem Classification Problem Date Documented Date Episodic/Chronic Calculus of urinary tract (10 sources) Ureteric stone; Translations: [Calculus of ureter] 07-29-2018 Episodic Essential hypertension (2 sources) Essential (primary) hypertension; Translations: [Essential (primary) hypertension] Onset: 11-28-2024 Chronic Menopausal disorders (5 sources) Postmenopausal bleeding; Translations: [Postmenopausal bleeding] Onset: 05-10-2025 05-10-2025 Chronic Comment on above: TVUS 05/17/24; EMB pen ding Other diseases of kidney and ureters (10 sources) Hydronephrosis; Translations: [Unspecified hydronephrosis] 07-29-2018 Episodic Other endocrine disorders (1 source) Disorder of parathyroid gland, unspecified; Translations: [Disorder of parathyroid gland, unspecified] Onset: 11-28-2024 Chronic Other screening for suspected conditions (not mental disorders or infectious disease) (5 sources) Patient encounter status; Translations: [Encounter for screening for malignant neoplasm of colon] 12-23-2023 Episodic Urinary tract infections (1 source) Urinary tract infection, site not specified; Translations: [Urinary tract infection, site not specified] Onset: 04-27-2025 Episodic Results Test Name Value Interpretation Reference Range Facility Snipper Office Visit Reporton 05-10-2025 Snipper Office Visit Report [facility] [address], [address] [place] [address] OFFICE VISIT Date of Service: 05/10/25 MR#: [id number] Acct: [id number] Name: ROSITA GRANT Rep #: [id number] 1955 Provider: PERICO roy Age/Sex: 69/F Location: [facility] Status: Signed Intake Vital Signs 02/21/24 08:16 05/08/25 09:36 05/10/25 14:47 Height 5 ft 2 in 5 ft 2 in 5 ft 2 in Weight: 182 lb 5 oz BMI 33.3 BP 130/90 H Intake Visit Reasons: New Pt, PMB, EMB Chief Complaint: EMB- PMB Music Autographer Required: No Is patient in pain?: No Allergies Sulfa (Sulfonamide Antibiotics) Allergy (Verified 05/10/25 14:45) Rash Medications ???Medication ???Instructions ???Recorded ???Confirmed ???Type acetazolamide 500 mg 500 mg PO DAILY 12/23/23 05/10/25 History capsule,extended release amlodipine 2.5 mg tablet 2.5 mg PO DAILY 12/23/23 05/10/25 History magnesium oxide 400 mg PO DAILY 12/23/23 05/10/25 History Is last menstrual period known: No Post menopausal: Yes Patient : No : No PFSH PFSH Medical History Wears glasses Non-smoker Calculus of kidney Parathyroid abnormality HTN (hypertension) Surgical History History of lithotripsy ( 2018) History of wisdom tooth extraction Hx of tonsillectomy History of parathyroidectomy Family History Mother Breast cancer Father Brain aneurysm Social History (Updated 05/10/25 @ 14:46 by Silva Pineda) household members: spouse current occupational status: employed 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 Date Name GA/Weeks Outcome Route Bth Weight Gen Labor Lgth Anesthesia Del Locatn Provider FOB Unknown michael Unknown Sujey Unknown [...] appearance of the cervix Bimanual Exam- Vagina Uterus: normal bimanual exam, uterine size normal, [...] (postmenopausal bleeding) N95.0 CPT Codes Endometrial Biopsy (77025) Assessment and Plan Assessment and Plan (1) PMB (postmenopausal bleeding): Status: Acute Comment: TVUS 05/17/24; EMB pending Orders: Orders Endometrial Biopsy Today Plan Reviewed S S infection Will call with EMB and US results. Management dependent on those. 05/10/25 1507 Date Nicol [place] TAKE OUT WAITRESS TAKE OUT WAITRESS-C Cosigner Signature: Date (if applicable) (more content not included)... Normal [facility] Urine Cultureon 04-25-2025 [facility] Order Date: 04/23/25 Order Info: [id number] - CUUR Comments: uti Streptococcus agalactiae (B) [place] Count >100,000 Streptococcus agalactiae (B): REACTION Ampicillin Islt FELICIA <=0.25 cefTRIAXone Islt FELICIA <=0.12 S Clindamycin Islt FELICIA <=0.25 S Clindamycin.induced Susc Islt NEG Linezolid Islt FELICIA <=2 S Vancomycin Islt FELICIA 0.5 S Normal [facility] Comment on above: Performed By: #### M 100.2200 #### [facility] [address] [facility] [place], [place], [id number] Urine cultureOrdered By: Chandrakant Oglesby on 04-23-2025 Bacteria identified Cx Nom (U) Streptococcus agalactiae (B) Abnormal [facility] Albumin DL <= 20 mg/L (U) [M ass/Vol]Ordered By: Nasim Wolff on 11-28-2024 Urine Random Microalbumin < 12.0 mg/L NO RANGE EST. [facility] Anion gap in Serum or Plasma Ordered By: Nasim Wolff on 11-28-2024 Anion gap [Moles/Vol] 13 mmol/L 5-15 [facility] BUN/creatinine ratioOrdered By: Nasim Wolff on 11-28-2024 Urea nitrogen/Creatinine [Mass ratio] 16.0 mg/mg 10-20 [facility] Bilirubin, totalOrdered By: Nasim Wolff on 11-28-2024 Bilirubin [Mass/Vol] 0.42 mg/dL 0.00-1.30 [facility] CBC-Complete Blood Cnt No Di ffon 11-28-2024 Erythrocyte distribution width (RBC) [Ratio] 13.2 % Normal 11.6-14.6 [facility] Comment on above: Order Comment: Order Date: 11/28/24 Order Info: [id number] - CBC Performed By: #### L 100.0500, L502.0250, L500.4050 #### [facility] [address] [place], [address] Hematocrit (Bld) [Volume fraction] 43.3 % Normal 37-47 [facility] Comment on above: Order Comment: Order Date: 11/28/24 Order Info: [id number] - CBC Performed By: #### L 100.0500, L502.0250, L500.4050 #### [facility] [address] [place], [address] Hemoglobin (Bld) [Mass/Vol] 14.6 g/dL Normal 12.0-15.0 [facility] Comment on above: Order Comment: Order Date: 11/28/24 Order Info: [id number] - CBC Performed By: #### L 100.0500, L502.0250, L500.4050 #### [facility] [address] [place], [address] MCH (RBC) [Entitic mass] 30.7 pg Normal 27.0-32.0 [facility] Comment on above: Order Comment: Order Date: 11/28/24 Order Info: [id number] - CBC Performed By: #### L 100.0500, L502.0250, L500.4050 #### [facility] [address] [place], [address] MCHC (RBC) [Mass/Vol] 33.7 g/dL Normal 32-36 [facility] Comment on above: Order Comment: Order Date: 11/28/24 Order Info: [id number] - CBC Performed By: #### L 100.0500, L502.0250, L500.4050 #### [facility] [address] [place], [address] MCV (RBC) [Entitic vol] 91.0 fL Normal 81-99 [facility] Comment on above: Order Comment: Order Date: 11/28/24 Order Info: [id number] - CBC Performed By: #### L 100.0500, L502.0250, L500.4050 #### [facility] [address] [place], [address] Platelet mean volume (Bld) [Entitic vol] 12.0 fL Normal 6.2-12.0 [facility] Comment on above: Order Comment: Order Date: 11/28/24 Order Info: [id number] - CBC Performed By: #### L 100.0500, L502.0250, L500.4050 #### [facility] [address] [place], [address] Platelets (Bld) [#/Vol] 267 10*3/uL Normal 150-450 [facility] Comment on above: Order Comment: Order Date: 11/28/24 Order Info: [id number] - CBC Performed By: #### L 100.0500, L502.0250, L500.4050 #### [facility] [address] [place], [address] RBC (Bld) [#/Vol] 4.76 10*6/uL Normal 4.2-5.4 [facility] Comment on above: Order Comment: Order Date: 11/28/24 Order Info: [id number] - CBC Performed By: #### L 100.0500, L502.0250, L500.4050 #### [facility] [address] [place], [address] RDW SD 44.0 fl High 35.1-43.9 [facility] Comment on above: Order Comment: Order Date: 11/28/24 Order Info: [id number] - CBC Performed By: #### L 100.0500, L502.0250, L500.4050 #### [facility] [address] [place], [address] WBC (Bld) [#/Vol] 7.5 10*3/uL Normal 4.4-11.0 [facility] Comment on above: Order Comment: Order Date: 11/28/24 Order Info: [id number] - CBC Performed By: #### L 100.0500, L502.0250, L500.4050 #### [facility] [address] [place], [address] Carbon dioxide, total [Moles /volume] in Central venous bloodOrdered By: Nasim Wolff on 11-28-2024 CO2 [Moles/Vol] 21.2 mmol/L 21.0-32.0 [facility] Chloride assayOrdered By: Ravin Wolff on 11-28-2024 Chloride [Moles/Vol] 108 mmol/L 98-108 [facility] Comprehensive Metabolic Prof ilon 11-28-2024 Albumin [Mass/Vol] 4.2 g/dL Normal 3.4-4.8 [facility] Comment on above: Order Comment: Order Date: 11/28/24 Order Info: [id number] - CMP Performed By: #### L 100.0500, L502.0250, L500.4050 #### [facility] [address] [place], [address] Albumin/Globulin [Mass ratio] 1.3 {ratio} Normal 0.9-2.4 [facility] Comment on above: Order Comment: Order Date: 11/28/24 Order Info: [id number] - CMP Performed By: #### L 100.0500, L502.0250, L500.4050 #### [facility] [address] [place], [address] ALK PHOS 85 U/L Normal 35-104 [facility] Comment on above: Order Comment: Order Date: 11/28/24 Order Info: [id number] - CMP Performed By: #### L 100.0500, L502.0250, L500.4050 #### [facility] [address] [place], [address] ALT [Catalytic activity/Vol] 32 U/L Normal <=34 [facility] Comment on above: Order Comment: Order Date: 11/28/24 Order Info: [id number] - CMP Performed By: #### L 100.0500, L502.0250, L500.4050 #### [facility] [address] [place], [address] AST [Catalytic activity/Vol] 25 U/L Normal <=31 [facility] Comment on above: Order Comment: Order Date: 11/28/24 Order Info: [id number] - CMP Performed By: #### L 100.0500, L502.0250, L500.4050 #### [facility] [address] [place], [address] Bilirubin [Mass/Vol] 0.42 mg/dL Normal 0.00-1.30 [facility] Comment on above: Order Comment: Order Date: 11/28/24 Order Info: [id number] - CMP Performed By: #### L 100.0500, L502.0250, L500.4050 #### [facility] [address] [place], [address] BUN/CRE 16.0 RATIO Normal 10-20 [facility] Comment on above: Order Comment: Order Date: 11/28/24 Order Info: [id number] - CMP Performed By: #### L 100.0500, L502.0250, L500.4050 #### [facility] [address] [place], [address] Calcium [Mass/Vol] 9.0 mg/dL Normal 7.6-11.0 [facility] Comment on above: Order Comment: Order Date: 11/28/24 Order Info: 0786-1 - CMP Performed By: #### L 100.0500, L502.0250, L500.4050 #### [facility] [address] [place], [address] Chloride [Moles/Vol] 108 mmol/L Normal 98-108 [facility] Comment on above: Order Comment: Order Date: 11/28/24 Order Info: [id number] - CMP Performed By: #### L 100.0500, L502.0250, L500.4050 #### [facility] [address] [place], [address] CO2 [Moles/Vol] 21.2 mmol/L Normal 21.0-32.0 [facility] Comment on above: Order Comment: Order Date: 11/28/24 Order Info: [id number] - CMP Performed By: #### L 100.0500, L502.0250, L500.4050 #### [facility] [address] [place], [address] Creatinine [Mass/Vol] 0.98 mg/dL Normal 0.70-1.20 [facility] Comment on above: Order Comment: Order Date: 11/28/24 Order Info: [id number] - CMP Performed By: #### L 100.0500, L502.0250, L500.4050 #### [facility] [address] [place], [address] GAP 13 Normal 5-15 [facility] Comment on above: Order Comment: Order Date: 11/28/24 Order Info: 0786-1 - CMP Performed By: #### L 100.0500, L502.0250, L500.4050 #### [facility] [address] [place], [address] GFR/1.73 sq M.predicted among non-blacks MDRD (S/P/Bld) [Vol rate/Area] 64 mL/min/{1.73_m2} Normal >60 [facility] Comment on above: Order Comment: Order Date: 11/28/24 Order Info: [id number] - CMP Result Comment: mL/m in/1.73m2 CKD-EPI Creatinine Equation (2020) Performed By: #### L 100.0500, L502.0250, L500.4050 #### [facility] [address] [place], [address] Globulin (S) [Mass/Vol] 3.1 g/dL Normal 2.2-4.2 [facility] Comment on above: Order Comment: Order Date: 11/28/24 Order Info: 0786-1 - CMP Performed By: #### L 100.0500, L502.0250, L500.4050 #### [facility] [address] [place], [address] Glucose [Mass/Vol] 95 mg/dL Normal 70-99 [facility] Comment on above: Order Comment: Order Date: 11/28/24 Order Info: 0786-1 - CMP Performed By: #### L 100.0500, L502.0250, L500.4050 #### [facility] [address] [place], [address] Potassium [Moles/Vol] 3.4 mmol/L Normal 3.3-5.1 [facility] Comment on above: Order Comment: Order Date: 11/28/24 Order Info: 0786-1 - CMP Performed By: #### L 100.0500, L502.0250, L500.4050 #### [facility] [address] [place], [address] Sodium [Moles/Vol] 142 mmol/L Normal 133-145 [facility] Comment on above: Order Comment: Order Date: 11/28/24 Order Info: 0786-1 - CMP Performed By: #### L 100.0500, L502.0250, L500.4050 #### [facility] [address] [place], [address] T PROT 7.3 g/dL Normal 5.9-8.4 [facility] Comment on above: Order Comment: Order Date: 11/28/24 Order Info: 0786-1 - CMP Performed By: #### L 100.0500, L502.0250, L500.4050 #### [facility] [address] [place], [address] Urea nitrogen [Mass/Vol] 16 mg/dL Normal 4-19 [facility] Comment on above: Order Comment: Order Date: 11/28/24 Order Info: 0786-1 - CMP Performed By: #### L 100.0500, L502.0250, L500.4050 #### [facility] [address] [place], [address] Creatinine Unsp time (U) [Ma ss/Vol]Ordered By: Nasim Wolff on 11-28-2024 Creatinine (U) [Mass/Vol] 61.10 mg/dL 28-217 [facility] Erythrocyte distribution wid th ratioOrdered By: Nasim Wolff on 11-28-2024 Erythrocyte distribution width (RBC) [Ratio] 13.2 % 11.6-14.6 [facility] Erythrocyte distribution wid th standard deviationOrdered By: Nasim Wolff on 11-28-2024 Erythrocyte distribution width (RBC) [Entitic vol] 44.0 fL High 35.1-43.9 [facility] GFR/1.73 sq M.predicted armando g non-blacks MDRD (S/P/Bld) [Vol rate/Area]Ordered By: Nasim Wolff on 11-28-2024 Estimated GFR (MDRD) Non-Af Amer 64 >60 [facility] Comment on above: mL/min/1.73m2 CKD-EP I Creatinine Equation (2020) Hematocrit Auto (Bld) [Volum e fraction]Ordered By: Nasim Wolff on 11-28-2024 Hematocrit (Bld) [Volume fraction] 43.3 % 37-47 [facility] Hemoglobin measurementOrdere d By: Nasim Wolff on 11-28-2024 Hemoglobin (Bld) [Mass/Vol] 14.6 g/dL 12.0-15.0 [facility] L506.1001on 11-28-2024 Vitamin D 25-OH 32.6 ng/mL Normal 30-100 [facility] Comment on above: Order Comment: Order Date: 11/28/24 Order Info: [id number] - CMP Result Comment: Gely min D Status Deficiency: <20 ng/mL (50nmol/L) Insufficiency: 20-30 ng/mL (50-75 nmol/L) Sufficiency: 30-100 ng/mL (75-250 nmol/L) Toxicity: >100 ng/mL (>250 nmol/L) Performed By: #### L 506.1001 #### [facility] [address] [place], [place], [id number] Laboratory - Chemistry and C hemistry - challengeOrdered By: Nasim Wolff on 11-28-2024 AST [Catalytic activity/Vol] 25 U/L <32 [facility] MCV (mean corpuscular volume ) determinationOrdered By: Nasim Wolff on 11-28-2024 MCV (RBC) [Entitic vol] 91.0 fL 81-99 [facility] Mean corpuscular hemoglobin (MCH) determinationOrdered By: Nasim Wolff on 11-28-2024 MCH (RBC) [Entitic mass] 30.7 pg 27.0-32.0 [facility] Mean corpuscular hemoglobin concentration (MCHC) determinationOrdered By: Nasim Wolff on 11-28-2024 MCHC (RBC) [Mass/Vol] 33.7 g/dL 32-36 [facility] Mean platelet volume determi nationOrdered By: Nasim Wolff on 11-28-2024 Platelet mean volume (Bld) [Entitic vol] 12.0 fL 6.2-12.0 [facility] Microalb:Creat Ratio,Random URon 11-28-2024 Creatinine [Mass/Vol] 61.10 mg/dL Normal 28-217 [facility] Comment on above: Order Comment: Order Date: 11/28/24 Order Info: [id number] - MIACRE Performed By: #### L 100.0500, L502.0250, L500.4050 #### [facility] [address] [place], [place], [id number] MALB:CREAT UNABLE TO CALCULATE Normal [facility] Comment on above: Order Comment: Order Date: 11/28/24 Order Info: [id number] - MIACRE Performed By: #### L 100.0500, L502.0250, L500.4050 #### [facility] [address] [place], [address] MICROALBUMIN,UR < 12.0 Normal NO RANGE EST. [facility] Comment on above: Order Comment: Order Date: 11/28/24 Order Info: [id number] - MIACRE Performed By: #### L 100.0500, L502.0250, L500.4050 #### [facility] [address] [place], [address] Microalbumin/creat ratio urO rdered By: Nasim Wolff on 11-28-2024 Urine Microalbumin/Creatinine Ratio UNABLE TO CALCULATE mg/g CRE [facility] PTH intactOrdered By: Nasim mack on 11-28-2024 Parathyroid Hormone (Intact) 47 pg/mL [facility] PTHINon 11-28-2024 PTH 47 pg/mL Normal [facility] Comment on above: Order Comment: Order Date: 11/28/24 Order Info: [id number] - PTHIN Performed By: #### L 509.1000 #### [facility] [address] [place], [address] Platelet countOrdered By: Ravin Wolff on 11-28-2024 Platelets (Bld) [#/Vol] 267 10*3/uL 150-450 [facility] Potassium (Unsp spec) [Mass/ Vol]Ordered By: Nasim Wolff on 11-28-2024 Potassium [Moles/Vol] 3.4 mmol/L 3.3-5.1 [facility] RBC Auto (Bld) [#/Vol]Ordere d By: Nasim Wolff on 11-28-2024 RBC (Bld) [#/Vol] 4.76 10*6/uL 4.2-5.4 [facility] Serum creatinine measurement (mass/volume)Ordered By: Nasim Wolff on 11-28-2024 Creatinine [Mass/Vol] 0.98 mg/dL 0.70-1.20 [facility] Serum globulin measurementOr dered By: Nasim Wolff on 11-28-2024 Globulin (S) [Mass/Vol] 3.1 g/dL 2.2-4.2 [facility] Serum glucose measurement (m ass/volume)Ordered By: Nasim Wolff on 11-28-2024 Glucose [Mass/Vol] 95 mg/dL 70-99 [facility] Serum or plasma alanine lane otransferase (ALT) measurementOrdered By: Nasim Wolff on 11-28-2024 ALT [Catalytic activity/Vol] 32 U/L <35 [facility] Serum or plasma albumin juan urement (mass/volume)Ordered By: Nasim Wolff on 11-28-2024 Albumin [Mass/Vol] 4.2 g/dL 3.4-4.8 [facility] Serum or plasma albumin/glob ulin mass ratioOrdered By: Nasim Wolff on 11-28-2024 Albumin/Globulin [Mass ratio] 1.3 {ratio} 0.9-2.4 [facility] Serum or plasma alkaline olimpia sphatase measurementOrdered By: Nasim Wolff on 11-28-2024 ALP [Catalytic activity/Vol] 85 U/L 35-104 [facility] Serum or plasma calcium juan urement (mass/volume)Ordered By: Nasim Wolff on 11-28-2024 Calcium [Mass/Vol] 9.0 mg/dL 7.6-11.0 [facility] Serum or plasma urea nitroge n measurement (mass/volume)Ordered By: Nasim Wolff on 11-28-2024 Urea nitrogen [Mass/Vol] 16 mg/dL 4-19 [facility] Sodium levelOrdered By: Nasim Wolff on 11-28-2024 Sodium [Moles/Vol] 142 mmol/L 133-145 [facility] Total proteinOrdered By: Alyssa Wolff on 11-28-2024 Protein [Mass/Vol] 7.3 g/dL 5.9-8.4 [facility] Vitamin D, 25-hydroxyOrdered By: Nasim Wolff on 11-28-2024 Vitamin D 25-Hydroxy 32.6 ng/mL 30-[address] [facility] Comment on above: Vitamin D StatusDefi ciency: <20 ng/mL (50nmol/L)Insufficiency: 20-30 ng/mL (50-75 nmol/L)Sufficiency: 30-100 ng/mL (75-250 nmol/L)Toxicity: >100 ng/mL (>250 nmol/L) White blood cell (WBC) count Ordered By: Nasim Wolff on 11-28-2024 WBC (Bld) [#/Vol] 7.5 10*3/uL 4.4-11.0 [facility] Basophil percentageOrdered B y: Nasim Wolff on 01-14-2024 Bilirubin [Mass/Vol] 0.50 mg/dL 0.20-1.00 [facility] Comment on above: For patients on eltr ombopag therapy, use of Dimension [place] TBIL is not recommended. Chloride [Moles/Vol] 111 mmol/L 98-107 [facility] Glucose [Mass/Vol] 98 mg/dL 74-106 [facility] Potassium [Moles/Vol] 3.2 mmol/L 3.5-5.1 [facility] Protein [Mass/Vol] 7.3 g/dL 6.4-8.2 [facility] Sodium [Moles/Vol] 142 mmol/L 136-145 [facility] Laboratory - Chemistry and C hemistry - challengeOrdered By: Nasim Wolff on 01-14-2024 Albumin/Globulin [Mass ratio] 1.0 {ratio} 0.9-2.4 [facility] ALP [Catalytic activity/Vol] 73 U/L 45-117 [facility] ALT [Catalytic activity/Vol] 32 U/L 13-56 [facility] CO2 [Moles/Vol] 26.0 mmol/L 21.0-32.0 [facility] Globulin (S) [Mass/Vol] 3.7 g/dL 2.2-4.2 [facility] Urea nitrogen/Creatinine [Mass ratio] 16.5 mg/mg 10-20 [facility] No Panel InformationOrdered By: Nasim Wolff on 01-14-2024 Estimated GFR (MDRD) Amer 69 mL/min >60 [facility] Comment on above: GFR Calc Estimated GFR (MDRD) Non-Af Amer 57 mL/min >60 [facility] Comment on above: Non- GFR Calc Serum or plasma calcium juan urement (mass/volume)Ordered By: Nasim Wolff on 01-14-2024 Calcium [Mass/Vol] 9.2 mg/dL 8.5-10.1 [facility] Serum or plasma creatinine m easurement (mass/volume)Ordered By: Nasim Wolff on 01-14-2024 Creatinine [Mass/Vol] 1.03 mg/dL 0.55-1.02 [facility] Comment on above: The validity of the calculated GFR & GFRAA in patients over 70 years has not been determined. Clinical correlation is essential. Serum or plasma urea nitroge n measurement (mass/volume)Ordered By: Nasim Wolff on 01-14-2024 Urea nitrogen [Mass/Vol] 17 mg/dL 7-18 [facility] Thin prep Papanicolaou smear with manual screeningOrdered By: Nasim Wolff on 01-14-2024 Thin prep Papanicolaou smear with manual screening 3.6 g/dL 3.2-5.0 [facility] Thin prep Papanicolaou smear with manual screening 19 U/L 15-37 [facility] Thin prep Papanicolaou smear with manual screening 5 5-15 [facility] Basophil percentageOrdered B y: Nasim Wolff on 12-10-2023 Chloride [Moles/Vol] 112 mmol/L 98-107 [facility] Glucose [Mass/Vol] 118 mg/dL 74-106 [facility] Comment on above: Fasting Glucose resu lt from 100 to 125 mg/dL suggests IMPAIRED HOMEOSTASIS per A.D.A. criteria. Potassium [Moles/Vol] 3.5 mmol/L 3.5-5.1 [facility] Sodium [Moles/Vol] 143 mmol/L 136-145 [facility] Laboratory - Chemistry and C hemistry - challengeOrdered By: Nasim Wolff on 12-10-2023 CO2 [Moles/Vol] 25.0 mmol/L 21.0-32.0 [facility] Urea nitrogen/Creatinine [Mass ratio] 17.6 mg/mg 10-20 [facility] No Panel InformationOrdered By: Nasim Wolff on 12-10-2023 Estimated GFR (MDRD) Amer 65 mL/min >60 [facility] Comment on above: GFR Calc Estimated GFR (MDRD) Non-Af Amer 54 mL/min >60 [facility] Comment on above: Non- GFR Calc Serum or plasma calcium juan urement (mass/volume)Ordered By: Nasim Wolff on 12-10-2023 Calcium [Mass/Vol] 9.0 mg/dL 8.5-10.1 [facility] Serum or plasma creatinine m easurement (mass/volume)Ordered By: Nasim Wolff on 12-10-2023 Creatinine [Mass/Vol] 1.08 mg/dL 0.55-1.02 [facility] Comment on above: The validity of the calculated GFR & GFRAA in patients over 70 years has not been determined. Clinical correlation is essential. Serum or plasma urea nitroge n measurement (mass/volume)Ordered By: Nasim Wolff on 12-10-2023 Urea nitrogen [Mass/Vol] 19 mg/dL 7-18 [facility] Thin prep Papanicolaou smear with manual screeningOrdered By: Nasim Wolff on 12-10-2023 Thin prep Papanicolaou smear with manual screening 6 5-15 [facility] Basophil percentageOrdered B y: Nasim Wolff on 12-03-2023 Bilirubin [Mass/Vol] 0.50 mg/dL 0.20-1.00 [facility] Comment on above: For patients on eltr ombopag therapy, use of Dimension [place] TBIL is not recommended. Chloride [Moles/Vol] 111 mmol/L 98-107 [facility] Glucose [Mass/Vol] 100 mg/dL 74-106 [facility] Comment on above: Fasting Glucose resu lt from 100 to 125 mg/dL suggests IMPAIRED HOMEOSTASIS per A.D.A. criteria. Potassium [Moles/Vol] 3.0 mmol/L 3.5-5.1 [facility] Protein [Mass/Vol] 7.4 g/dL 6.4-8.2 [facility] Sodium [Moles/Vol] 142 mmol/L 136-145 [facility] Laboratory - Chemistry and C hemistry - challengeOrdered By: Nasim Wolff on 12-03-2023 Albumin/Globulin [Mass ratio] 0.9 {ratio} 0.9-2.4 [facility] ALP [Catalytic activity/Vol] 79 U/L 45-117 [facility] ALT [Catalytic activity/Vol] 36 U/L 13-56 [facility] CO2 [Moles/Vol] 23.0 mmol/L 21.0-32.0 [facility] Globulin (S) [Mass/Vol] 3.8 g/dL 2.2-4.2 [facility] Urea nitrogen/Creatinine [Mass ratio] 15.6 mg/mg 10-20 [facility] No Panel InformationOrdered By: Nasim Wolff on 12-03-2023 Estimated GFR (MDRD) Amer 81 mL/min >60 [facility] Comment on above: GFR Calc Estimated GFR (MDRD) Non-Af Amer 67 mL/min >60 [facility] Comment on above: Non- GFR Calc Parathyroid Hormone (Intact) 69.1 pg/mL 18.4-80.1 [facility] Urine Microalbumin/Creatinine Ratio 12.2 mg/g CRE <30 [facility] Vitamin D 25-Hydroxy 52.9 ng/mL [facility] Comment on above: Vitamin D 25(OH) Sta tus Range Deficiency <20 ng/mL (50nmol/L) Insufficiency 20 - 30 ng/mL (50 - 75 nmol/L) Sufficiency 30 - 100 ng/mL (75 - 250 nmol/L) Toxicity >100 ng/mL (>250 nmol/L) Serum or plasma calcium juan urement (mass/volume)Ordered By: Nasim Wolff on 12-03-2023 Calcium [Mass/Vol] 8.8 mg/dL 8.5-10.1 [facility] Serum or plasma creatinine m easurement (mass/volume)Ordered By: Nasim Wolff on 12-03-2023 Creatinine [Mass/Vol] 0.90 mg/dL 0.55-1.02 [facility] Comment on above: The validity of the calculated GFR & GFRAA in patients over 70 years has not been determined. Clinical correlation is essential. Serum or plasma urea nitroge n measurement (mass/volume)Ordered By: Nasim Wolff on 12-03-2023 Urea nitrogen [Mass/Vol] 14 mg/dL 7-18 [facility] Thin prep Papanicolaou smear with manual screeningOrdered By: Nasim Wolff on 12-03-2023 Thin prep Papanicolaou smear with manual screening 3.6 g/dL 3.2-5.0 [facility] Thin prep Papanicolaou smear with manual screening 27 U/L 15-37 [facility] Thin prep Papanicolaou smear with manual screening 8 5-15 [facility] Thin prep Papanicolaou smear with manual screening 9.3 mg/L NO RANGE EST. [facility] Urine creatinine measurement (mass/volume)Ordered By: Nasim Wolff on 12-03-2023 Creatinine (U) [Mass/Vol] 76.70 mg/dL NO RANGE EST. [facility] No Panel InformationOrdered By: Nasim Wolff on 09-09-2023 Vitamin D 25-Hydroxy 76.9 ng/mL [facility] Comment on above: Vitamin D 25(OH) Sta tus Range Deficiency <20 ng/mL (50nmol/L) Insufficiency 20 - 30 ng/mL (50 - 75 nmol/L) Sufficiency 30 - 100 ng/mL (75 - 250 nmol/L) Toxicity >100 ng/mL (>250 nmol/L) Absolute lymphocyte countOrd ered By: Dr. Wolff on 02-19-2023 Lymphocytes Auto (Unsp spec) [#/Vol] 3.82 10*3/uL 0.83-4.51 [facility] Basophil percentageOrdered B y: Dr. Wolff on 02-19-2023 Basophils/100 WBC (Bld) 0.8 % 0-1 [facility] Bilirubin [Mass/Vol] 0.40 mg/dL 0.20-1.00 [facility] Comment on above: For patients on eltr ombopag therapy, use of Dimension [place] TBIL is not recommended. Chloride [Moles/Vol] 108 mmol/L 98-107 [facility] Eosinophils/100 WBC (Bld) 3.0 % 0-5 [facility] Glucose [Mass/Vol] 95 mg/dL 74-106 [facility] Neutrophils (Bld) [#/Vol] 3.0 10*3/uL 2.0-7.7 [facility] Neutrophils/100 WBC (Bld) 38.7 % 47-70 [facility] Potassium [Moles/Vol] 3.9 mmol/L 3.5-5.1 [facility] Protein [Mass/Vol] 7.6 g/dL 6.4-8.2 [facility] Sodium [Moles/Vol] 139 mmol/L 136-145 [facility] WBC (Bld) [#/Vol] 7.6 10*3/uL 4.4-11.0 [facility] Blood erythrocytes count (nu mber/volume)Ordered By: Dr. Wolff on 02-19-2023 RBC (Bld) [#/Vol] 4.83 10*6/uL 4.2-5.4 [facility] Blood hemoglobin measurement (mass/volume)Ordered By: Dr. Wolff on 02-19-2023 Hemoglobin (Bld) [Mass/Vol] 14.4 g/dL 12.0-15.0 [facility] Blood lymphocytes/100 leukoc ytesOrdered By: Dr. Wolff on 02-19-2023 Lymphocytes/100 WBC (Bld) 50.1 % 19-41 [facility] Blood monocytes/100 leukocyt esOrdered By: Dr. Wolff on 02-19-2023 Monocytes/100 WBC (Bld) 7.1 % 0-10 [facility] Blood platelet mean volumeOr dered By: Dr. Wolff on 02-19-2023 Platelet mean volume (Bld) [Entitic vol] 12.1 fL 6.2-12.0 [facility] Determination of erythrocyte mean corpuscular volume (MCV)Ordered By: Dr. Wolff on 02-19-2023 MCV (RBC) [Entitic vol] 92.1 fL 81-99 [facility] Hematocrit Auto (Bld) [Volum e fraction]Ordered By: Dr. Wolff on 02-19-2023 Hematocrit (Bld) [Volume fraction] 44.5 % 37-47 [facility] Laboratory - Chemistry and C hemistry - challengeOrdered By: Dr. Wolff on 02-19-2023 ALP [Catalytic activity/Vol] 82 U/L 45-117 [facility] ALT [Catalytic activity/Vol] 43 U/L 13-56 [facility] CO2 [Moles/Vol] 22.0 mmol/L 21.0-32.0 [facility] Globulin (S) [Mass/Vol] 4.2 g/dL 2.2-4.2 [facility] Urea nitrogen/Creatinine [Mass ratio] 23.2 mg/mg 10-20 [facility] Laboratory - Hematology and Cell countsOrdered By: Dr. Wolff on 02-19-2023 Erythrocyte distribution width (RBC) [Entitic vol] 45.1 fL 35.1-43.9 [facility] Erythrocyte distribution width (RBC) [Ratio] 13.2 % 11.6-14.6 [facility] Immature granulocytes/100 WBC (Bld) 0.300 % 0.0-0.9 [facility] Comment on above: IG% - Immature Granu locytes (promyelocytes, myelocytes and metamyelocytes) > 1% indicates that a LEFT SHIFT is Present. MCH (RBC) [Entitic mass] 29.8 pg 27.0-32.0 [facility] Nucleated RBC/100 WBC (Bld) [Ratio] 0 % 0-5 [facility] MCHC Auto (RBC) [Mass/Vol]Or dered By: Dr. Wolff on 02-19-2023 MCHC (RBC) [Mass/Vol] 32.4 g/dL 32-36 [facility] No Panel InformationOrdered By: Dr. Wolff on 02-19-2023 Estimated GFR (MDRD) Amer 90 mL/min >60 [facility] Comment on above: GFR Calc Estimated GFR (MDRD) Non-Af Amer 74 mL/min >60 [facility] Comment on above: Non- GFR Calc Parathyroid Hormone (Intact) 60.9 pg/mL 18.4-80.1 [facility] Thyroid Stimulating Hormone (TSH) 2.18 uIU/mL 0.358-3.74 [facility] Urine Microalbumin/Creatinine Ratio 19.6 mg/g CRE <30 [facility] Vitamin D 25-Hydroxy 123.6 ng/mL [facility] Comment on above: Vitamin D 25(OH) [...] 02-19-2023 Platelets (Bld) [#/Vol] 255 10*3/uL 150-450 [facility] Serum or plasma albumin juan urement (mass/volume)Ordered By: Dr. Wolff on 02-19-2023 Albumin [Mass/Vol] 3.4 g/dL 3.2-5.0 [facility] Serum or plasma albumin/glob ulin mass ratioOrdered By: Dr. Wolff on 02-19-2023 Albumin/Globulin [Mass ratio] 0.8 {ratio} 0.9-2.4 [facility] Serum or plasma calcium juan urement (mass/volume)Ordered By: Dr. Wolff on 02-19-2023 Calcium [Mass/Vol] 9.0 mg/dL 8.5-10.1 [facility] Serum or plasma creatinine m easurement (mass/volume)Ordered By: Dr. Wolff on 02-19-2023 Creatinine [Mass/Vol] 0.82 mg/dL 0.55-1.02 [facility] Comment on above: The validity of the calculated GFR & GFRAA in patients over 70 years has not been determined. Clinical correlation is essential. Serum or plasma urea nitroge n measurement (mass/volume)Ordered By: Dr. Wolff on 02-19-2023 Urea nitrogen [Mass/Vol] 19 mg/dL 7-18 [facility] Thin prep Papanicolaou smear with manual screeningOrdered By: Dr. Wolff on 02-19-2023 Thin prep Papanicolaou smear with manual screening 27 U/L 15-37 [facility] Thin prep Papanicolaou smear with manual screening 9 5-15 [facility] Thin prep Papanicolaou smear with manual screening 9.5 mg/L NO RANGE EST. [facility] Urine creatinine measurement (mass/volume)Ordered By: Dr. Wolff on 02-19-2023 Creatinine (U) [Mass/Vol] 48.50 mg/dL NO RANGE EST. [facility] Absolute lymphocyte counton 07-01-2022 Lymphocytes Auto (Unsp spec) [#/Vol] 3.47 10*3/uL 0.83-4.51 [facility] Work Phone: Basophil percentageon 2021 Basophils/100 WBC (Bld) 0.7 % 0-1 [facility] Work Phone: Bilirubin [Mass/Vol] 0.70 mg/dL 0.20-1.00 [facility] Work Phone: Comment on above: For patients on eltr ombopag therapy, use of Dimension [place] TBIL is not recommended. Chloride [Moles/Vol] 107 mmol/L 98-107 [facility] Work Phone: Cholesterol [Mass/Vol] 232 mg/dL <200 [facility] Work Phone: Comment on above: <200 mg/dL Desirable 200-240 mg/dL Borderline >240 mg/dL High Risk Eosinophils/100 WBC (Bld) 3.2 % 0-5 [facility] Work Phone: Glucose [Mass/Vol] 96 mg/dL 74-106 [facility] Work Phone: Neutrophils (Bld) [#/Vol] 3.0 10*3/uL 2.0-7.7 [facility] Work Phone: Neutrophils/100 WBC (Bld) 41.4 % 47-70 [facility] Work Phone: Potassium [Moles/Vol] 3.7 mmol/L 3.5-5.1 [facility] Work Phone: Protein [Mass/Vol] 7.2 g/dL 6.4-8.2 [facility] Work Phone: Sodium [Moles/Vol] 139 mmol/L 136-145 [facility] Work Phone: [phone] Triglyceride [Mass/Vol] 105 mg/dL <199 [facility] Work Phone: Comment on above: The drugs N-Acetylcy steine and Metamizole may falsely depress this assay.Serum Triglycerides Reference Interval Normal <150 mg/dL Borderline high 150 - 199 mg/dL High 200 - 499 mg/dL Very High > or = 500 mg/dL WBC (Bld) [#/Vol] 7.3 10*3/uL 4.4-11.0 [facility] Work Phone: Blood erythrocytes count (nu mber/volume)on 07-01-2022 RBC (Bld) [#/Vol] 4.79 10*6/uL 4.2-5.4 [facility] Work Phone: [phone] Blood hemoglobin measurement (mass/volume)on 07-01-2022 Hemoglobin (Bld) [Mass/Vol] 14.3 g/dL 12.0-15.0 [facility] Work Phone: Blood lymphocytes/100 leukoc yteson 07-01-2022 Lymphocytes/100 WBC (Bld) 47.6 % 19-41 [facility] Work Phone: [phone] Blood monocytes/100 leukocyt eson 07-01-2022 Monocytes/100 WBC (Bld) 7.0 % 0-10 [facility] Work Phone: [phone] Blood platelet mean volumeon 07-01-2022 Platelet mean volume (Bld) [Entitic vol] 12.1 fL 6.2-12.0 [facility] Work Phone: [phone] Determination of erythrocyte mean corpuscular volume (MCV)on 07-01-2022 MCV (RBC) [Entitic vol] 91.0 fL 81-99 [facility] Work Phone: [phone] Hematocrit Auto (Bld) [Volum e fraction]on 07-01-2022 Hematocrit (Bld) [Volume fraction] 43.6 % 37-47 [facility] Work Phone: Laboratory - Chemistry and C hemistry - challengeon 07-01-2022 ALP [Catalytic activity/Vol] 86 U/L 45-117 [facility] Work Phone: [phone] ALT [Catalytic activity/Vol] 48 U/L 13-56 [facility] Work Phone: [phone] CO2 [Moles/Vol] 26.0 mmol/L 21.0-32.0 [facility] Work Phone: [phone] Globulin (S) [Mass/Vol] 3.7 g/dL 2.2-4.2 [facility] Work Phone: [phone] Urea nitrogen/Creatinine [Mass ratio] 20.6 mg/mg 10-20 [facility] Work Phone: [phone] Laboratory - Hematology and Cell countson 07-01-2022 Erythrocyte distribution width (RBC) [Entitic vol] 43.1 fL 35.1-43.9 [facility] Work Phone: [phone] Erythrocyte distribution width (RBC) [Ratio] 13.0 % 11.6-14.6 [facility] Work Phone: [phone] Immature granulocytes/100 WBC (Bld) 0.100 % 0.0-0.9 [facility] Work Phone: [phone] Comment on above: IG% - Immature Granu locytes (promyelocytes, myelocytes and metamyelocytes) > 1% indicates that a LEFT SHIFT is Present. MCH (RBC) [Entitic mass] 29.9 pg 27.0-32.0 [facility] Work Phone: [phone] Nucleated RBC/100 WBC (Bld) [Ratio] 0 % 0-5 [facility] Work Phone: [phone] MCHC Auto (RBC) [Mass/Vol]on 07-01-2022 MCHC (RBC) [Mass/Vol] 32.8 g/dL 32-36 [facility] Work Phone: [phone] No Panel Informationon 07-01 Estimated GFR (MDRD) Amer 96 mL/min >60 [facility] Work Phone: [phone] Comment on above: GFR Calc Estimated GFR (MDRD) Non-Af Amer 79 mL/min >60 [facility] Work Phone: Comment on above: Non- GFR Calc Parathyroid Hormone (Intact) 70.7 pg/mL 18.4-80.1 [facility] Work Phone: Vitamin D 25-Hydroxy 61.3 ng/mL [facility] Work Phone: Comment on above: Vitamin D 25(OH) Sta tus Range Deficiency <20 ng/mL (50nmol/L) Insufficiency 20 - 30 ng/mL (50 - 75 nmol/L) Sufficiency 30 - 100 ng/mL (75 - 250 nmol/L) Toxicity >100 ng/mL (>250 nmol/L) Platelets bldon 07-01-2022 Platelets (Bld) [#/Vol] 255 10*3/uL 150-450 [facility] Work Phone: Serum or plasma albumin juan urement (mass/volume)on 07-01-2022 Albumin [Mass/Vol] 3.5 g/dL 3.2-5.0 [facility] Work Phone: Serum or plasma albumin/glob ulin mass ratioon 07-01-2022 Albumin/Globulin [Mass ratio] 0.9 {ratio} 0.9-2.4 [facility] Work Phone: Serum or plasma calcium juan urement (mass/volume)on 07-01-2022 Calcium [Mass/Vol] 8.9 mg/dL 8.5-10.1 [facility] Work Phone: [phone] Serum or plasma cholesterol in HDL measurement (mass/volume)on 07-01-2022 Cholesterol in HDL [Mass/Vol] 61 mg/dL >40 [facility] Work Phone: [phone] Comment on above: The drugs N-Acetylcy steine and Metamizole may falsely depress this assay. Reference Range HDL <40 mg/dL Low HDL Cholesterol HDL >or= 60 mg/dL High HDL Cholesterol Serum or plasma cholesterol in VLDL measurement (mass/volume)on 07-01-2022 Cholesterol in VLDL [Mass/Vol] 21 mg/dL 5-40 [facility] Work Phone: Serum or plasma creatinine m easurement (mass/volume)on 07-01-2022 Creatinine [Mass/Vol] 0.78 mg/dL 0.55-1.02 [facility] Work Phone: Comment on above: The validity of the calculated GFR & GFRAA in patients over 70 years has not been determined. Clinical correlation is essential. Serum or plasma low density lipoprotein (LDL) cholesterol measurement (mass/volume)on 07-01-2022 Cholesterol in LDL [Mass/Vol] 150 mg/dL 0-130 [facility] Work Phone: Serum or plasma urea nitroge n measurement (mass/volume)on 07-01-2022 Urea nitrogen [Mass/Vol] 16 mg/dL 7-18 [facility] Work Phone: Thin prep Papanicolaou smear with manual screeningon 07-01-2022 Thin prep Papanicolaou smear with manual screening 23 U/L 15-37 [facility] Work Phone: Thin prep Papanicolaou smear with manual screening 6 5-15 [facility] Work Phone: Vital Signs Date Time Vital Sign Value Performing Clinician Faci lity 05-10-2025 14:47-0400 Body height 157.[address] Nasim Wolff MD Work Phone: [facility] 05-10-2025 14:47-0400 Body mass index (BMI) [Ratio] 33.3 kg/m2 Dr. Nasim Wolff MD Work Phone: [facility] 05-10-2025 14:47-0400 Body weight 82.[address] Nasim Wolff MD Work Phone: [facility] 05-10-2025 14:47-0400 Diastolic blood pressure 90 mm[Hg] Dr. Nasim Wolff MD Work Phone: [facility] 05-10-2025 14:47-0400 Systolic blood pressure 130 mm[Hg] Dr. Nasim Wolff MD Work Phone: [facility] 12-23-2023 11:19-0400 Body height 157.[address] Nasim Wolff Work Phone: [facility] 12-23-2023 11: Body mass index (BMI) [Ratio] 33.3 kg/m2 Dr. Nasim Wolff Work Phone: [facility] 12-23-2023 11: Body weight 82.[address] Nasim Wolff Work Phone: [facility] Encounters Encounter Date Encounter Type Care Provider Facility Start: 05-10-2025 End: 05-10-2025 Patient encounter procedure Nicol Pastrana NP-C -Laboratory [facility]imen Work Phone: Start: 05-10-2025 End: 05-10-2025 ambulatory Nasim Wolff Facility:[facility] Start: 05-10-2025 End: 05-10-2025 Patient encounter procedure Nicol Pastrana TAKE OUT WAITRESS-C -[facility] Work Phone: Start: 05-10-2025 End: 05-10-[address] Nasim Wolff MD Work Phone: -[facility] Start: 04-23-2025 End: 04-23-[address] Nasim Wolff MD Work Phone: -Laboratory [facility] Start: 04-23-2025 End: 04-23-[address] Nasim Wolff MD -Laboratory [facility] Start: 04-23-2025 End: 04-23-2025 ambulatory Nasim Wolff Facility:[facility] Start: 11-28-2024 End: 11-28-[address] Nasim Wolff MD Work Phone: [facility] Work Phone: Start: 11-28-2024 End: 11-28-[address] [facility] Start: 11-28-2024 End: 11-28-2024 ambulatory Nasim Wolff Facility:[facility] Start: 01-14-2024 End: 01-14-[address] Nasim Wolff Work Phone: [facility] Work Phone: Start: 01-14-2024 End: 01-14-[address] Nasim Wolff Work Phone: [facility] Work Phone: Start: 12-23-2023 Non-patient / Non-visit Dr. Ravin Wolff Work Phone: [facility] Work Phone: Start: 12-10-2023 End: 12-10-2023 ambulatory [facility] Work Phone: Start: 12-10-2023 End: 12-10-2023 Patient encounter procedure [facility] Work Phone: Start: 12-03-2023 End: 12-03-2023 ambulatory [facility] Work Phone: Start: 12-03-2023 End: 12-03-2023 Patient encounter procedure [facility] Start: 09-09-2023 End: 09-09-2023 ambulatory [facility] Work Phone: Start: 09-09-2023 End: 09-09-2023 Patient encounter procedure [facility] Start: 02-19-2023 End: 02-19-2023 ambulatory [facility] Work Phone: Start: 02-19-2023 End: 02-19-2023 Patient encounter procedure [facility] Start: 07-01-2022 End: 07-01-2022 ambulatory [facility] Work Phone: Start: 07-01-2022 End: 07-01-2022 Patient encounter procedure [facility] Procedures Date Procedure Procedure Detail Performing Clinician Start: 04-23-[address] Nasim Wolff MD Work Phone: Plan of Treatment Date Care Activity Detail Author Colonoscopy [facility] Payers Date Payer Category Payer Medicare [id number] 2024 Self-pay [id number] 2015 Unknown [id number] Unknown [id number] [id number] Unknown [id number] Unknown [id number] [id number] [id number] Unknown [id number] [id number] Unknown [id number] [id number] Social History Date Type Detail Facility Start: 07-29-2018 End: 12-23-2023 Tobacco smoking status [facility] Unknown if ever smoked [facility] Start: 07-29-2018 Non-smoker [facility] Start: 1955 Sex Assigned At Female [facility] Start: 02-16-2024 End: 05-10-2025 Tobacco smoking status MEIS Never smoked tobacco (finding) [facility] Start: 12-07-2024 Sex Female (finding) [facility] Medical Equipment Procedure Code Equipment Code Equipment [...] 07-29-2018 STENT,URETERAL PIGTAIL [id number] FDA Start: 07-29-2018 Evaluation note 05-10-2025 Note Date & Type Note Facility 05-10-2025 Evaluation note Diagnosis Onset Date Resolution PMB (postmenopausal bleeding) acute May 10 2:35pm [facility] Work Phone: Progress note 05-10-2025 Note Date & Type Note Facility 05-10-2025 Progress note [facility] Progress note 05-10-2025 Note Date & Type Note Facility 05-10-2025 Progress note Note Date/Time May 10, 2025 3:07pm [facility] [address], [address] [place] [address] OFFICE VISIT Date of Service: 05/10/25 MR#: [id number] Acct: [id number] Name: ROSITA GRANT Rep #: [id number] : 1955 Provider: PERICO Pastrana Age/Sex: 69/F Location[place] [facility] [place] Status: Signed Intake Vital Signs 02/21/24 08:16 05/08/25 09:36 05/10/25 14:47 Height 5 ft 2 in 5 ft 2 in 5 ft 2 in Weight: 182 lb 5 oz BMI 33.3 BP 130/90 H Intake Visit Reasons: New Pt, PMB, EMB Chief Complaint: EMB- PMB Music Autographer Required: No Is patient in pain?: No [...] Yes Patient : No : No PFSH [facility] Medical History Wears glasses Non-smoker Calculus of kidney Parathyroid abnormality HTN (hypertension) Surgical History History of lithotripsy (~2018) History of wisdom tooth extraction Hx of tonsillectomy History of parathyroidectomy Family History Mother Breast cancer Father Brain aneurysm Social History (Updated 05/10/25 @ 14:46 by Silva Pineda) household members: spouse current occupational status: employed 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 Date Name GA/Weeks Outcome Route Bth Weight Infant Gen Labor Lgth Anesthesia Del Locatn Provider FOB Unknown michael Unknown Sujey Unknown [...] noted. 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 Management dependent on those. 05/10/25 1507 <Electronically signed by Nicol cali NP TAKE OUT WAITRESS-C> Date _ Nicol Pastrana NP TAKE OUT WAITRESS-C Cosigner Signature: Date (if applicable) CC: ~ [facility] Work Phone: Evaluation note Note Date & Type Note Facility Evaluation note No assessment information availa ble [facility] Work Phone: Evaluation note Note Date & Type Note Facility Evaluation note Diagnosis Onset Date Resolution PMB (postmenopausal bleeding) acute May 10 2:35pm [facility] Work Phone: Reason for referral (narrative) Note Date & Type Note Facility Reason for referral (narrative) No reason for referral information available [facility] Work Phone: Advance Directives Advance Directive Response Recorded Date/ Time Advance Directives No July 12:17pm Living Will No July 29, 018 12:17pm Power of Bricklayer Sewer No July 29, 2018 12:17pm Advance Directive Response Recorded Date/ Time Advance Directives No July 11:17am Living Will No July 29, 2 018 11:17am Power of Bricklayer Sewer No July 29, 2018 11:17am Advance Directive [...] Dr. Nasim Wolff MD Primary Care Provider, Attending lino Active Team Status: Inactive Member Role Status Dates Dr. Nasim Wolff MD Primary Care Provide r, Attending Provider, Referring Provider Active Team Status: Active Member Role Status Dates Dr. Nasim Wolff MD Primary Care Provider [facility] Attending Provider Active Team Status: Inactive Member [...] 2025 End: May 10, 2025 Nicol Pastrana NP TAKE OUT WAITRESS-C Attending Provider Active Start: May 10, 2025 End: May 10, 2025 Team Status: Inactive Member Role/Relationship Status Dates Dr. Nasim Wolff MD Primary Care Provider Active Start: May 10, 2025 End: May 10, 2025 Nicol Pastrana NP TAKE OUT WAITRESS-C Attending Provider Active Start: May 10, 2025 End: May 10, 2025 INFORMATION SOURCE (unrecogn ized section and content) DATE CREATED AUTHOR 05/10/2025 [facility] FOR RECORDS PERTAINING TO PATIENTS WHO ARE [...] BE BASED ON THE PRIMARY CLINICAL RECORDS. [facility]. provides no warranty or guarantee of the accuracy or completeness of information in this document.
== END | disposition home or self-care (01) ==
PROVIDERS: PCP Family Medicine; Referring Provider Nurse Practitioner Women's Health; Visit Provider Nurse Practitioner Women's Health
DX: N95.0 Postmenopausal bleeding (principal)
CPT/HCPCS: 76830

== ENCOUNTER 2025-07-31 11:17 | Day surgery (SDC) | payer MEDICARE, SELFPAY ==
--- NOTE | 2025-07-23 13:54 | PAT.ANE_ITS ---
Pre-Assessment Diagnosis/Proposed Procedure Planned Operative Procedure(s): Hysteroscopy,D&C Symphion, Polypectomy, Possible IUD Placement Anesthesia History Anesthesia History - information systems coordinator: Anesthesia History - information systems coordinator Hx Hospitalization No 07/23/25 09:17 Any Problems With Anesthesia No 07/23/25 09:17 Cholinesterase deficiency No 07/23/25 09:17 You/Your Family Experience No 07/23/25 09:17 fever (hyperthermia) with Relationship Recent Exposure to Contagious No 05/08/25 09:36 Disease Does patient have nerve No 07/23/25 09:17 stimulator Patient instructed to have device shut off --Does patient have Pacemaker or ICD? When Was Last Pacemaker Check QUESTION #4 FULL TEXT: You/Your Family Experience fever (hyperthermia) with Anesthesia Last Oral Intake Last Oral intake: Last Oral Intake NPO since Meds taken in AM with sips of water? Meds patient instructed to take am of surgery PONV PONV - information systems coordinator: PONV - information systems coordinator Female Yes 07/23/25 09:17 HX of Motion Sickness Yes 07/23/25 09:17 HX of N/V After Surgery No 07/23/25 09:17 Non-Smoker Yes 07/23/25 09:17 Duration of Surgery greater No 07/23/25 09:17 than 60 minutes Number of Risk Factors 3 07/23/25 09:17 PONV Score Moderate Risk 07/23/25 09:17 Height & Weight Height & Weight: Anesthesia: Height & Weight Height 5 ft 2 in 05/10/25 14:47 Respiratory Assessment Respiratory Assessment - information systems coordinator: Respiratory Tract Infection Hx - information systems coordinator Hx Respiratory Tract Infection No 07/23/25 09:17 STOP Sleep Apnea STOP Sleep Apnea - information systems coordinator: STOP Sleep Apnea - information systems coordinator Hx Hypertension Yes: on meds 07/23/25 09:17 Hx Sleep Apnea No 07/23/25 09:17 CPAP BIPAP Do you snore loudly (louder No 07/23/25 09:17 than talking or can be heard Do you often feel tired/ No 07/23/25 09:17 fatigued/ sleepy during daytime? Has anyone observed you stop No 07/23/25 09:17 breathing during sleep? STOP Results Negative 07/23/25 09:17 QUESTION #5 FULL TEXT : Do you snore loudly (louder than talking or can be heard through closed doors)? 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 Specify any problems Hx of Preganancy in last 3 No 07/23/25 09:17 Months Nurse Filling Out Transfusion JZOLLINGE 07/23/25 09:17 & Questions: Date: 07/23/25 07/23/25 09:17 Time: 09:18 07/23/25 09:17 Patient unable to answer at this time (ie. confused, unrespo /Reproduction History /Reproductive History - information systems coordinator: /Reproductive Hx- information systems coordinator Hx Now No 07/23/25 09:17 Gestational Age (in weeks): EDC: Hx Hx Para Hx Section SAB No 07/23/25 09:17 Does the father of the baby or his family experience fever w Father of the baby Malignant Hypertension history comment [facility] Medical History (Updated 07/16/25 @ 15:[address] Kaleigh Mcbride MD) Wears glasses Non-smoker Calculus of kidney Parathyroid abnormality HTN (hypertension) Home Medications ?Medication ?Instructions ?Recorded ?Last Taken ?Type magnesium oxide 400 mg PO DAILY 12/23/2306/06 History telmisartan 40 mg tablet 40 mg PO QDAY 07/16/25 Unkno wn History acetazolamide 500 mg 500 mg PO .qd 07/23/25 Unkno wn History capsule,extended release Allergy/AdvReac Type Severity Reaction Status Date / Time Sulfa (Sulfonamide Allergy Rash Verified 07/23/25 09:06 Antibiotics) Family History Mother Breast cancer Father Brain aneurysm Surgical History (Updated 07/23/25 @ 09:17 by Juliette Ty) Hx of colonoscopy History of lithotripsy (~2018) History of wisdom tooth extraction Hx of tonsillectomy History of parathyroidectomy Social History household members: spouse current occupational status: employed 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 QTc 439 Recommendation Anesthesia Recommendation Anesthesia recommendation: OPTIMIZED for anesthesia
[2025-07-25 07:29] LABS: Hematocrit 40.5 % (37-47); Hemoglobin 13.6 g/dL (12.0-15.0); Immature Granulocytes Count 0.010 X10^3/uL (0.0-0.0); Mean Corp Hgb Conc 33.6 g/dL (32-36); Mean Corpuscular Volume 89.6 fL (81-99); Mean Platelet Vol. 11.9 fl (6.2-12.0); NRBC Flagged by Analyzer 0 % (0-5); Platelet Count 231 K/mm3 (150-450); RBC Distribution Width CV 12.8 % (11.6-14.6); RBC Distribution Width SD 42.5 fl (35.1-43.9); Red Blood Count 4.52 M/mm3 (4.2-5.4); White Blood Count 6.7 K/mm3 (4.4-11.0)
[2025-07-25 07:57] LABS: AST(SGOT) 20 U/L (<=31); Alanine Aminotransfer ALT/SGPT 20 U/L (<=34); Albumin, Serum 4.0 g/dL (3.4-4.8); Alkaline Phosphatase 72 U/L (35-104); Anion Gap 12 (5-15); BUN 18 mg/dL (4-19); BUN/Creat Ratio 17.3 RATIO (10-20); Calcium,Total 9.3 mg/dL (7.6-11.0); Carbon Dioxide 21.6 mmol/L (21.0-32.0); Chloride 109 mmol/L (98-108); Globulin 2.8 g/dL (2.2-4.2); Glucose 116 mg/dL (70-99); Potassium 3.4 mmol/L (3.3-5.1)
[2025-07-31] VITALS (9 sets, daily range): BP systolic 140–189; BP diastolic 76–93; PULSE 67–85; RESP 16–18; TEMP 36.1–37.1; O2SAT 96–100; BMI 33.0
[2025-07-31] MEDS: Lactated Ringers 1,000 ML 15 ML IV (11:59)
--- NOTE | 2025-07-31 12:33 | PCM.PRE.AN2 ---
ASA Classification* ASA Classification ASA Classification: 2 Assessment & Plan Anesthesia* Anesthesia Assessment Anesthesia Assessment: Discussed sedation and/or anesthesia options, risks, benefits, and alternatives with patient/parents/legal guardian/POA. Questions invited. The patient/parents/legal guardian/POA seems to understand and agrees to proceed with anesthesia plan. Reviewed the physical assessment, medical history, allergy history and patient home medications list prior to surgery/procedure/anesthetic and documented any changes. Performed airway and anesthesia risk assessments. Anesthesia Type Anesthesia Type: General and MAC History Source History Obtained from:: Patient and Chart Anesthesia Focused Assessment* Temperature: 98.7 F Pulse Rate: 75 Respiratory Rate: 16 Pulse Ox: 100 Oxygen Delivery Method: Room Air Airway Assessment Mouth opens: >3 cm Mallampati Score: II Teeth Condition: Intact Neck Range of motion (ROM): Full ROM Labs Anesthesia Preop lab: CBC WBC, (4.4-11.0) 6.7 K/mm3 07/25/25, 06:55 RBC, (4.2-5.4) 4.52 M/mm3 07/25/25, 06:55 Hgb, (12.0-15.0) 13.6 g/dL 07/25/25, 06:55 Hct, (37-47) 40.5 % 07/25/25, 06:55 Plt Count, (150-450) 231 K/mm3 07/25/25, 06:55 CHEMISTRY Potassium, (3.3-5.1) 3.4 mmol/L 07/25/25, 07:04 Sodium, (133-145) 143 mmol/L 07/25/25, 07:04 Magnesium, (1.6-2.6) 2.2 mg/dL 06/17/18, 10:22 BUN, (4-19) 18 mg/dL 07/25/25, 07:04 Creatinine, (0.70-1.20) 1.05 mg/dL 07/25/25, 07:04 Glucose, (70-99) 116 mg/dL H 07/25/25, 07:04 TSH, (0.358-3.74) 2.18 uIU/mL 02/19/23, 11:00 COAG Pre-Assessment Diagnosis/Proposed Procedure Planned Operative Procedure(s): Hysteroscopy,D&C Symphion, Polypectomy, Possible IUD Placement Anesthesia History Anesthesia History - event marketing assistant: Anesthesia History - event marketing assistant Hx Hospitalization No 07/23/25 09:17 Any Problems With Anesthesia No 07/23/25 09:17 Cholinesterase deficiency No 07/23/25 09:17 You/Your Family Experience No 07/23/25 09:17 fever (hyperthermia) with Relationship Recent Exposure to Contagious No 07/31/25 11:48 Disease Does patient have nerve No 07/23/25 09:17 stimulator Patient instructed to have device shut off --Does patient have Pacemaker No 07/31/25 11:48 or ICD? When Was Last Pacemaker Check QUESTION #4 FULL TEXT: You/Your Family Experience fever (hyperthermia) with Anesthesia Last Oral Intake Last Oral intake: Last Oral Intake NPO since 19:00 07/31/25 11:48 Meds taken in AM with sips of Yes 07/31/25 11:48 water? Meds patient instructed to take am of surgery PONV PONV - event marketing assistant: PONV - event marketing assistant Female Yes 07/23/25 09:17 HX of Motion Sickness Yes 07/23/25 09:17 HX of N/V After Surgery No 07/23/25 09:17 Non-Smoker Yes 07/23/25 09:17 Duration of Surgery greater No 07/23/25 09:17 than 60 minutes Number of Risk Factors 3 07/23/25 09:17 PONV Score Moderate Risk 07/23/25 09:17 Height & Weight Height & Weight: Anesthesia: Height & Weight Height 5 ft 2 in 07/31/25 11:48 Weight: 82 kg 07/31/25 11:48 Body Mass Index (BMI) 33.0 07/31/25 11:48 Respiratory Assessment Respiratory Assessment - event marketing assistant: Respiratory Tract Infection Hx - event marketing assistant Hx Respiratory Tract Infection No 07/23/25 09:17 STOP Sleep Apnea STOP Sleep Apnea - event marketing assistant: STOP Sleep Apnea - event marketing assistant Hx Hypertension Yes: on meds 07/23/25 09:17 Hx Sleep Apnea No 07/23/25 09:17 CPAP BIPAP Do you snore loudly (louder No 07/23/25 09:17 than talking or can be heard Do you often feel tired/ No 07/23/25 09:17 fatigued/ sleepy during daytime? Has anyone observed you stop No 07/23/25 09:17 breathing during sleep? STOP Results Negative 07/23/25 09:17 QUESTION #5 FULL TEXT : Do you snore loudly (louder than talking or can be heard through closed doors)? 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 Specify any problems Hx of Preganancy in last 3 No 07/23/25 09:17 Months Nurse Filling Out Transfusion JZOLLINGE 07/23/25 09:17 & Questions: Date: 07/23/25 07/23/25 09:17 Time: 09:18 07/23/25 09:17 Patient unable to answer at this time (ie. confused, unrespo /Reproduction History /Reproductive History - event marketing assistant: /Reproductive Hx- event marketing assistant Hx Now No 07/23/25 09:17 Gestational Age (in weeks): EDC: Hx Hx Para Hx Section SAB No 07/23/25 09:17 Does the father of the baby or his family experience fever w Father of the baby Malignant Hypertension history comment Active Medications Active Medications: Current Medications Generic Name Dose Route Start Last Admin Trade Name Freq PRN Reason Stop Dose Admin Lactated Ringer's 1,000 mls @ 15 mls/hr 07/31/25 11:45 07/31/25 11:59 IV 15 mls/hr .Q48H ANA MARÍA Administration PFSH Medical History Wears glasses Non-smoker Calculus of kidney Parathyroid abnormality HTN (hypertension) Home Medications ?Medication ?Instructions ?Recorded ?Last Taken ?Type magnesium oxide 400 mg PO DAILY 12/23/23 07/30/25 History telmisartan 40 mg tablet 40 mg PO QDAY 07/16/25 07/31/25 07:30 History acetazolamide 500 mg 500 mg PO .qd 07/23/25 Unknown History capsule,extended release Allergy/AdvReac Type Severity Reaction Status Date / Time Sulfa (Sulfonamide Allergy Rash Verified 07/23/25 09:06 Antibiotics) Family History Mother Breast cancer Father Brain aneurysm Surgical History Hx of colonoscopy History of lithotripsy (~2018) History of wisdom tooth extraction Hx of tonsillectomy History of parathyroidectomy Social History household members: spouse current occupational status: employed 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
--- NOTE | 2025-07-31 13:00 | EMB_PTH ---
PATIENT: ROSITA GRANT LOC: [facility] [place] U#:[id number] AGE/SX: 69/F ROOM: RE07/31/[address]: Dr. Kaleigh Mcbride MD : 1955 BED: DIS: 07/31/2025 SPEC #: [id number] RECD: 07/31/25 17:56 STATUS: PAUL VEE #: [id number] IGOR: 07/31/25 13:[address]: Kaleigh Mcbride DEPT: SURGICAL PATHOLOGY RECD BY: Ej Block ENTERED: 08/01/25 10:57 SP TYPE: ENDOM BX/C OTHR DR: Dr. Nasim Wolff MD Tissues: A - Endometrium, NOS Procedures: Surgery Specimen Level IV HEADER OPERATION: Hysteroscopy, D&C, polypectomy PRE-OP DIAGNOSIS: Post menopausal bleeding, endometrial polyp TISSUE SUBMITTED: A- Endometrial curettings and polyp MICROSCOPIC DIAGNOSIS A. Endometrium, curettage, polypectomy: - Inactive endometrium with benign endometrial polyp(s) MICROSCOPIC DESCRIPTION Slides are reviewed. GROSS DESCRIPTION A. Received in formalin labeled with the patient's name and date of . Designated as endometrial curettings and polyp is a 4.0 x 2.7 x 0.5 cm aggregate of pink-red to light brown, irregular tissue fragments. Entirely submitted in 2 cassettes. [place] 08/01/2025PT:[id number]
--- NOTE | 2025-07-31 13:27 | HP.PCM_ITS ---
History and Physical Date of Admission: 07/31/25 Vital Signs 05/10/2514:47 07/16/2514:46 07/16/2514:50 Height 5 ft 2 in 5 ft 2 in Weight: 182 lb 5 oz 183 lb 8 oz BMI 33.3 33.5 BP 130/90 H 180/95 H 173/91 H Intake Visit Reasons: D&C hysteroscopy symphion polypectomy possible IUD Sharepoint Application Developer Required: No Is patient in pain?: No Allergies Sulfa (Sulfonamide Antibiotics) Allergy (Verified 07/16/25 14:51) Rash Medications ?Medication ?Instructions ?Recorded ?Confirmed ?Type amlodipine 2.5 mg tablet 2.5 mg PO DAILY 12/23/23 07/16/25 Histor y magnesium oxide 400 mg PO DAILY 12/23/23 07/16/25 Histor y telmisartan 40 mg tablet 40 mg PO QDAY 07/16/25 07/16/25 History Is last menstrual period known: No Post menopausal: Yes Patient : No : No PFSH Medical History Wears glasses Non-smoker Calculus of kidney Parathyroid abnormality HTN (hypertension) Surgical History History of lithotripsy (~2018) History of wisdom tooth extraction Hx of tonsillectomy History of parathyroidectomy Family History Mother Breast cancer Father Brain aneurysm Social History household members: spouse current occupational status: employed 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 Postmenopausal Bleeding - Recently experienced postmenopausal bleeding described as spotty and just annoying, with variable heaviness. - No associated cramping, pain, odor, or fevers. - No history of hot flashes or other menopausal symptoms. - No history of diabetes. - No history of taking hormonal supplements. - Endometrial biopsy showed disordered proliferative endometrium. - Transvaginal ultrasound revealed an 8 cm uterus with a 17 mm endometrial lining and a small polyp. Past Medical History - Hypertension - Parathyroidectomy - Colonoscopy (1 year ago): Normal - Nephrolithiasis Current Medications and Supplements - Medroxyprogesterone: Completed a 10-day course. - Antihypertensive medication Female Reproductive History Menopausal Symptoms: No night sweats History 5 Elective abortions Hx Para 5 Spontaneous abortions Hx # Term Pregnancies Ectopic pregnancies Hx # Pregnancies Multiple births # of living children 5 Past Pregnancies Del. Date Name GA/Weeks Outcome Route Bth Weight Infant Gen Labor Lgth Anesth esia Del Locatn Provider FOB Unknown michael Unknown Sujey Unknown Renee Unknown Letty Unknown Kathleen ROS Const Constitutional: Denies fatigue, night sweats, weight gain or weight loss ENT ENT: Reports system reviewed and no additional complaints, except as documented Cardio Card: Denies chest pain Resp Resp: Denies cough or dyspnea GI GI: Reports as per HPI; Denies abdominal pain, constipation, nausea or vomiting : Denies nipple discharge, urinary frequency, urinary incontinence, urinary hesitancy, urinary urgency, vaginal discharge, vaginal dryness, vaginal odor or vaginal pruritus Musc Musc: Denies arthralgias, back pain or muscle weakness Skin Skin/Breast: Denies alopecia, change in hair, dry skin, breast mass, breast pain, breast skin changes or nipple discharge Neuro Neuro: Reports system reviewed and no additional complaints, except as documented Psych Psych: Reports system reviewed and no additional complaints, except as documented Endo Endo: Denies cold intolerance, excessive sweating, heat intolerance or polydipsia Júnior/Lymph Hematologic/Lymphatic: Denies easy bleeding, Denies easy bruising and Denies lymphadenopathy Exam Const General: cooperative, healthy appearing, comfortable and no acute distress Orientation: alert [facility] Head: normal to inspection and normocephalic Ears: hearing grossly normal bilaterally and external ears normal Nose: external nose normal and nares normal Face and sinus: normal facial exam Neck Neck: normal visual inspection and no lymphadenopathy Thyroid: thyroid normal Chest Chest palpation & inspection: normal inspection of the chest Resp Effort & Inspection: normal respiratory effort Auscultation: clear to auscultation bilaterally Cardio Rate: regular rate Rhythm: regular rhythm Heart Sounds: S1 normal and S2 normal GI Inspection: normal to inspection and non-distended Palpation: soft and no hepatosplenomegaly Musc Other: gross motor intact no deficits, full bilateral strength Skin General: no rashes or lesions noted Neuro General: patient alert, patient awake, moves all extremities and no focal motor deficits Motor: muscle tone normal throughout Extrem General: normal to inspection and no pedal edema Psych Appearance: grossly normal Mental Status: mental status grossly normal Affect: normal affect Speech and Movement: speech and movement normal Coding Level of Care Code Off vis,est,level 4 Diagnoses PMB (postmenopausal bleeding) N95.0 Endometrial polyp N84.0 Assessment and Plan Assessment and Plan (1) PMB (postmenopausal bleeding): Status: Acute Comment: TVUS 05/17/24; plan d nd c hysteroscopy symphion (2) Endometrial polyp: Status: Acute Plan # Postmenopausal bleeding (N95.0): - Presenting with unexpected uterine bleeding approximately 23 years after cessation of menses. - Denies associated fever, foul odor, or significant cramping. - Recent office endometrial biopsy showed disordered proliferative changes but no confirmed malignancy; however, borderline hyperplastic changes remain possible. - Proceeding with diagnostic and therapeutic dilation and curettage (D&C) with hysteroscopy under anesthesia to visually inspect the uterine cavity, remove any identified lesions, and obtain directed biopsies. - Polypectomy planned if intraluminal growth is confirmed intraoperatively. - Possible follow-up with short-term oral progesterone therapy if histopathology reveals precancerous hyperplasia; hysterectomy only considered for higher-grade lesions or persistent abnormality. - Instructed on potential risks of surgery, including bleeding, infection, and p erforation; patient acknowledged understanding and consented. - Advised of minimal expected postoperative spotting or bleeding for a few days to one week. - Provided preoperative instructions: pre-op labs, special soap usage, fasting guidelines, and anesthesia phone interview. Will resume normal activities unless otherwise directed postoperatively. # Endometrial polyp (N84.0): - Ultrasound suggests a 1 cm endometrial polyp contributing to bleeding. - See ?Postmenopausal bleeding? above for treatment/management plan, including planned polypectomy at the time of D&C hysteroscopy. # Endometrial thickening on ultrasound (R93.89): - Noted endometrial stripe of approximately 17 mm, likely partly due to polyp. - See ?Postmenopausal bleeding? above for treatment/management plan. # Disorder of endometrium (N85.9): - Biopsy revealed disordered proliferative endometrium. - If final pathology confirms hyperplasia, will initiate a 6-month course of oral progesterone with periodic endometrial surveillance as indicated. - See ?Postmenopausal bleeding? above for overall treatment/management plan. # Encounter for other preprocedural examination (Z01.818): - Completing preoperative workup: EKG and labs already obtained; patient educated on pre-op and post-op guidelines. - Awaiting scheduled D&C with hysteroscopy on the to address findings and guide further therapy. Patient Instructions: - Dilation and curettage with hysteroscopy and polypectomy is scheduled for the ; plan for this outpatient procedure, during which any polyp will be removed and a sample of your uterine lining will be taken. - Use the special antiseptic soap provided to wash from your neck down the night before and the morning of surgery. - Do not eat for at least 8 hours before your surgery; clear liquids (water, broth, tea without milk) are allowed up to 2 hours beforehand. - Take your usual blood pressure medication with a small sip of water on the morning of surgery, unless the anesthesia team advises otherwise. - Complete the preoperative blood work and EKG that have already been ordered. - Expect light vaginal bleeding or spotting for a few days up to a week after the procedure. - Resume your normal daily activities as tolerated once you have recovered from the anesthesia. - If you have any questions before your surgery date or concerns afterward, please call the office. Assessment & Plan Assessment/Plan (1) Endometrial polyp: (2) PMB (postmenopausal bleeding): PLAN: Plan UPDATE- I have seen the patient and performed any clinically relevant updates to the history and physical exam. Kaleigh Mcbride MD
[2025-07-31] MEDS: Lactated Ringers 500 ML IV (14:18)
[2025-07-31] MEDS: Midazolam 2 MG/2 ML Syringe IV (14:20)
[2025-07-31] MEDS: Lidocaine 1% (5 ml sdv) 5 ML Vial IV (14:23)
[2025-07-31] MEDS: fentaNYL 100 MCG/2 ML Ampul IV (14:51)
--- NOTE | 2025-07-31 15:10 | PCM.OPRPT ---
Multi Select Codes Urinary/Genital Urinary/Genital CPT Codes: 55751 Hysteroscopy, Polypectomy, Symphion Operative Report (Standard) Operative Information Date of Procedure: 07/31/25 Pre-Operative Diagnosis: pmb polyp Post-Operative Diagnosis: same Surgery/Procedure Performed: dilation and curettage hysteroscopy symphion polypectomy plastics design engineer: No Type of Anesthesia: IV Sedation RN Documented Start/Stop Times: Operation Date: 07/31/25 13:00 Case Time Into Pre-Op 07/31/25 11:38 Out of Pre-Op 07/31/25 14:14 Anesthesia Start 07/31/25 14:18 Into Room 07/31/25 14:18 Procedure Start 07/31/25 14:40 Procedure End 07/31/25 14:59 Anesthesia End 07/31/25 15:07 Out of Room 07/31/25 15:07 Into Recovery 07/31/25 15:08 Procedure Start Time: 14:40 Procedure Stop Time: 14:59 Select all DRAINS/GRAFTS/IMPLANTS that apply: None Estimated Blood Loss: 25 Specimen collected: Yes Description of specimen(s) removed: endometrial curretings and polyp Description of surgery: Patient was prepped and draped in a normal sterile fashion under MAC anesthesia. A weighted speculum was placed in the vagina and the anterior lip of the cervix was grasped with a single-tooth tenaculum. A paracervical block was placed with 1% lidocaine. Cervix was progressively dilated to allow passage of a 5 mm hysteroscope. The lining was fully visualized and noted to have a large endometrial polyp . Uterine sounded to 8 cm. Using the symphion device, the polyp was progressively removed without complications. Direct visual curettage was performed using the device , and all specimens were sent to pathology. bleeding was noted on the left wall which was cauterized for hemostasis. All instruments were removed from the vagina and excellent hemostasis was noted. Patient was awoken and taken to recovery in stable condition. Surgical Findings: endoemtrial polyp Complications Complications: No
--- NOTE | 2025-07-31 15:12 | PCM.DC ---
Discharge Instructions DC O2, CPAP, BIPAP needs Home O2 Discharge instructions: No Dressing / Incision Discharge Activity: Return to Normal Activity, May Shower and May Take a Tub Bath (after 1 week) May resume sexual activity in: 1-2 weeks Weight Bearing Status: Weight bearing as tolerated Lifting Restrictions: none Dressing / Incision Call your doctor if you observe: Fever of 101 or Higher, Using more than 1 pad per hour, Shortness of breath and Uncontrolled pain Follow Up Care Please Follow Up With: Kaleigh Mcbride MD When: Call [phone] to schedule appointment. Test Results: Test results from this visit will be discussed in further detail at your follow-up appointment, if applicable. Discharge Plan Admission Attending Provider: Kaleigh Mcbride Primary Care Provider: Nasim Wolff Instructions Print Language: Senegalese Discharge Orders/Prescriptions Prescriptions: No Action magnesium oxide 400 mg magnesium tablet 400 mg PO DAILY telmisartan 40 mg tablet 40 mg PO QDAY acetazolamide 500 mg capsule, extended release 500 mg PO .qd Referrals / Follow Up: Nasim Wolff MD [Primary Care Provider, Family Practice] Disposition Disposition (needs filled in before D/C Order can be placed): Home, Self Care
--- NOTE | 2025-07-31 15:15 | PCM.POST.ANE ---
Anesthesia: Postop Eval I Current Vital Signs Temperature: 97.8 F Pulse Rate: 85 Blood Pressure: 141/76 Respiratory Rate: 16 Pulse Ox: 96 Assessment Airway patent: Yes Spontaneous unlabored respirations: Yes nausea: No Vomiting: No Anesthesia Complication: No Fluid Hydration Crystalloid volume administer (ml): 500 Total IV fluid infused: 500 Progress Note Anesthesia document: Postop Eval 1 completed: Yes
--- NOTE | 2025-07-31 16:35 | POSTOPAN2_ITS ---
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.[email or web address] Spontaneous unlabored Yes 07/31/25 15:15 PAINT ROLLER COVERS SUPERVISOR.[email or web address] respirations Mental status nausea No 07/31/25 15:15 PAINT ROLLER COVERS SUPERVISOR.[email or web address] Vomiting No 07/31/25 15:15 PAINT ROLLER COVERS SUPERVISOR.[email or web address] Anesthesia Postop Eval I: Fluid Summary Crystalloid volume administer 500 07/31/25 15:15 PAINT ROLLER COVERS SUPERVISOR.[email or web address] (ml) Colloids volume administered ( ml) Blood Product volume administered (ml) Total IV fluid infused 500 07/31/25 15:15 PAINT ROLLER COVERS [email or web address] Anesthesia Postop Eval I: Summary Notes Anesthesia Complication No 07/31/25 15:15 PAINT ROLLER COVERS SUPERVISOR.[email or web address] Anesthesia Complication Comment: Post-operative progress note Anesthesia: Postop Eval II Evaluation Mental status: Awake and Calm Pain Level: 1 nausea: No Vomiting: No Complications Anesthesia Complication: No
--- NOTE | 2025-07-31 16:35 | PCM.POSTANE2 ---
Anesthesia Postop Eval I Sum Postop Eval Completion status Anesthesia document: Postop Eval 1 completed: Yes Anesthesia Postop Eval I Summary Anesthesia Postop Eval I Summary: Anesthesia Postop Eval I: Assessment Summary Airway patent Yes 07/31/25 15:15 CHILLER [email or web address] Spontaneous unlabored Yes 07/31/25 15:15 CHILLER [email or web address] respirations Mental status nausea No 07/31/25 15:15 CHILLER [email or web address].[email or web address] Vomiting No 07/31/25 15:15 [email or web address] [email or web address] Anesthesia Postop Eval I: Fluid Summary Crystalloid volume administer 500 07/31/25 15:15 CHILLER [email or web address] (ml) Colloids volume administered ( ml) Blood Product volume administered (ml) Total IV fluid infused 500 07/31/25 15:15 [email or web address] Anesthesia Postop Eval I: Summary Notes Anesthesia Complication No 07/31/25 15:15 CHILLER [email or web address] Anesthesia Complication Comment: Post-operative progress note Anesthesia: Postop Eval II Evaluation Mental status: Awake and Calm Pain Level: 1 nausea: No Vomiting: No Complications Anesthesia Complication: No
== END 2025-07-31 17:30 | disposition home or self-care (01) ==
LOC: SDC 11:23 → AC 11:23
PROVIDERS: PCP Family Medicine; Referring Provider Obstetrics & Gynecology; Visit Provider Obstetrics & Gynecology
PROC: 0UB98ZZ Excision of Uterus, Via Natural or Artificial Opening Endoscopic (ICD-10-PCS; CPT 58558; principal; 2025-07-31 12:45)
DX: N84.0 Polyp of corpus uteri (principal); N95.0 Postmenopausal bleeding; I10 Essential (primary) hypertension; Z87.442 Personal history of urinary calculi; Z79.899 Other long term (current) drug therapy
CPT/HCPCS: 58558; 00952; 36415; 80053; 85025; 86850; 86900; 86901; 88305; J2405